=== PATIENT | male | born 1945 ===

== ENCOUNTER 2016-10-27 12:31 | Emergency (ER) | payer OTHER ==
[2016-10-27 12:36] VITALS: TEMP 98; O2SAT 96
[2016-10-27] MEDS ORDERED: Sodium Chloride 0.9% 1,000 ML IV STA (12:50)
--- NOTE | 2016-10-27 13:04 | ED PDOC ---
Lower Extremity Pain/Injury Time Seen by Provider: 10/27/16 12:36 Chief Complaint (Nursing): Lower Extremity Problem/Injury History Per: Patient (brought by EMS from a local pharmacy because of pain in both legs. Patient has had these pains chronically and more acutely over the past 4 days. He denies injury or fall/slipping. Patient denies nausea, vomiting , fever or chills. He has taken Naprosyn without relief. His last dose was early this morning, almost 12 hours ago.) History/Exam Limitations: no limitations Onset/Duration Of Symptoms: Gradual, Persistent Current Symptoms Are (Timing): Still Present Severity: Moderate Past Medical History Reviewed: Historical Data, Nursing Documentation, Vital Signs Vital Signs: Last Vital Signs Temp 98 F 10/27/16 12:45 Pulse 85 10/27/16 12:45 Resp 18 10/27/16 12:45 BP 107/75 10/27/16 12:45 Pulse Ox 96 10/27/16 12:45 - Medical History PMH: COPD, Hypercholesterolemia, Seizures Denies: Chronic Kidney Disease - Surgical History Surgical History: Appendectomy - Family History Family History: States: No Known Family Hx - Immunization History Hx Tetanus Toxoid Vaccination: No Hx Influenza Vaccination: No Hx Pneumococcal Vaccination: No - Home Medications Home Medications: Ambulatory Orders Medication Instructions Recorded Albuterol 0.083% [Albuterol 0.083% 3 ml IH Q4H PRN 07/10/16 Inhal Briana (2.5 mg/3 ml) UD] Albuterol HFA [Ventolin HFA 90 2 puff IH Q4H PRN 07/10/16 mcg/actuation (8 g)] Aspirin [Ecotrin] 81 mg PO DAILY 07/10/16 Atorvastatin [Lipitor] 20 mg PO DAILY 07/10/16 Brimonidine 0.2% [Alphagan 0.2% 1 drop EACHEYE BID 07/10/16 Opht] Fluticasone Nasal [Flonase] 2 spray NAHEED HS PRN 07/10/16 Gabapentin [Neurontin] 300 mg PO BID 07/10/16 Latanoprost [Xalatan] 1 drop EACHEYE HS 07/10/16 Melatonin [Melatin] 3 mg PO HS 07/10/16 Naproxen [Naprosyn] 500 mg PO BID PRN 07/10/16 Pantoprazole Sodium [Protonix] 40 mg PO DAILY 07/10/16 Phenytoin, Extended [Dilantin] 200 mg PO BID 07/10/16 Pilocarpine 1% Opht [Isopto 1 drop EACHEYE BID 07/10/16 Carpine 1% Opht Soln] Promethazine [Phenergan Syrup] 5 ml PO HS PRN 07/10/16 Tiotropium [Spiriva] 18 mcg IH DAILY 07/10/16 Vitamin B Complex [Super B-50 1 cap PO DAILY 07/10/16 Complex] guaiFENesin/Dextromethorphan 1 tab PO Q12H PRN 07/10/16 [Mucinex-DM 600-30 mg] Dicyclomine [Bentyl] 20 mg PO TID #30 tab 09/17/16 Acetaminophen [Tylenol 325mg tab] 650 mg PO Q6H PRN #50 tab 10/27/16 Naproxen [Naprosyn] 500 mg PO BID PRN #20 tablet 10/27/16 - Allergies Allergies/Adverse Reactions: Allergies Allergy/AdvReac Type Severity Reaction Status Date / Time No Known Allergies Allergy Verified 10/27/16 12:45 Review of Systems ROS Statement: Except As Marked, All Systems Reviewed And Found Negative Constitutional: Negative for: Fever Cardiovascular: Negative for: Chest Pain Respiratory: Negative for: Cough, Shortness of Breath Gastrointestinal: Negative for: Nausea, Vomiting, Abdominal Pain, Diarrhea Genitourinary Male: Negative for: Dysuria Physical Exam - Reviewed Nursing Documentation Reviewed: Yes Vital Signs Reviewed: Yes - Physical Exam Appears: Positive for: Well, Non-toxic, No Acute Distress Head Exam: Positive for: ATRAUMATIC, NORMAL INSPECTION, NORMOCEPHALIC Skin: Positive for: Normal Color, Warm, DRY Eye Exam: Positive for: EOMI, Normal appearance, PERRL ENT: Positive for: Normal ENT Inspection, Other (mucosa dry) Neck: Positive for: Normal, Painless ROM Cardiovascular/Chest: Positive for: Regular Rate, Rhythm Respiratory: Positive for: CNT, Normal Breath Sounds Gastrointestinal/Abdominal: Positive for: Normal Exam, Bowel Sounds, Soft Back: Positive for: Normal Inspection Extremity: Positive for: Other (thin). Negative for: Normal ROM (pain with range of motion) Neurologic/Psych: Positive for: Alert, Oriented - Laboratory Results Result Diagrams: 10/27/16 13:00 10/27/16 13:00 - ECG O2 Sat by Pulse Oximetry: 96 Disposition - Clinical Impression Clinical Impression: Chronic osteoarthritis - Patient ED Disposition Is Patient to be Admitted: No Doctor Will See Patient In The: Office Counseled Patient/Family Regarding: Diagnosis, Need For Followup, Rx Given - Disposition Disposition: Routine/Home Disposition Time: 14:21 Condition: IMPROVED Prescriptions: Acetaminophen [Tylenol 325mg tab] 650 mg PO Q6H PRN #50 tab PRN Reason: Pain, Mild (1-3) Naproxen [Naprosyn] 500 mg PO BID PRN #20 tablet PRN Reason: Pain, Moderate (4-7) Instructions: Degenerative Disc Disease (ED) Print Language: AUSTRIAN - POA Present On Arrival: None
[2016-10-27 13:21] LABS: BASO % 0.3 % (0.0-2.0); EOS # 0.3 K/uL (0.0-0.7); EOS % 3.3 % (0.0-4.0); HEMATOCRIT 41.2 % (35.0-51.0); LYMPH # 3.2 K/uL (1.0-4.3); LYMPH % 38.6 % (20.0-40.0); MEAN CELL VOLUME 93.4 fl (80.0-94.0); MEAN CORPUSCULAR HEMOGLOBIN 31.7 pg (27.0-31.0); MEAN CORPUSCULAR HGB CONC 33.9 g/dL (33.0-37.0); MEAN PLATELET VOLUME 8.6 fl (7.2-11.7); MONO # 0.9 K/uL (0.0-0.8); MONO % 11.3 % (0.0-10.0); NEUT # 3.8 K/uL (1.8-7.0); NEUT % 46.5 % (50.0-75.0); NRBC % 0.1 % (0.0-0.0); RED CELL DISTRIBUTION WIDTH 12.8 % (11.5-14.5); WHITE BLOOD COUNT 8.2 K/uL (4.8-10.8)
[2016-10-27 13:24] LABS: ALB/GLOB RATIO 1.1 (1.0-2.1); ALKALINE PHOSPHATASE 73 U/L (38-126); ALT/SGPT 32 U/L (21-72); AST/SGOT 39 U/L (17-59); BILIRUBIN,TOTAL 0.4 mg/dl (0.2-1.3); BLOOD UREA NITROGEN 20 mg/dl (9-20); CALCIUM 9.6 mg/dL (8.4-10.2); CARBON DIOXIDE 27 mmol/L (22-30); CHLORIDE 104 mmol/L (98-107); GFR AFRICAN-AMERICAN > 60; GLUCOSE,RANDOM 156 mg/dL (75-110); POTASSIUM 4.3 MMOL/L (3.6-5.0); SODIUM 139 mmol/l (132-148); TOTAL PROTEIN 7.4 G/DL (6.3-8.2)
[2016-10-27 19:33] VITALS: BP 110/70; PULSE 80; RESP 20
== END 2016-10-27 19:30 | disposition home or self-care (01) ==
LOC: H.ER 12:31 → MERGE 12:31 → H.ER 19:30
DX: M19.90 Unspecified osteoarthritis, unspecified site (principal)

== ENCOUNTER 2017-02-13 14:28 | Emergency (ER) | payer OTHER ==
[2017-02-13 14:31] VITALS: BP 106/64; PULSE 75; RESP 20; TEMP 97.4
[2017-02-13 14:32] VITALS: BMI 17.2
[2017-02-13 14:36] VITALS: O2SAT 98
--- NOTE | 2017-02-13 15:04 | ED PDOC ---
Lower Extremity Pain/Injury Time Seen by Provider: 02/13/17 14:54 Chief Complaint (Nursing): Lower Extremity Problem/Injury Chief Complaint (Provider): chronic leg pain History Per: Patient Onset/Duration Of Symptoms: Persistent Current Symptoms Are (Timing): Still Present Additional Complaint(s): The patient is a 71 y/o male, past medical history of chronic bilateral lower extremity pain, presents to the ED for evaluation of exacerbation of his chronic pain. He reports taking percocet before arrival with minimal relief. Patient denies any bladder or bowel dysfunction. He offers no additional medical complaints. PCP: None provided Past Medical History Reviewed: Historical Data, Nursing Documentation, Vital Signs Vital Signs: Last Vital Signs Temp 97.4 F L 02/13/17 14:30 Pulse 75 02/13/17 14:30 Resp 20 02/13/17 14:30 BP 106/64 02/13/17 14:30 Pulse Ox 98 02/13/17 14:32 - Medical History PMH: Arthritis, CHF, COPD, Diabetes, HTN, Hypercholesterolemia, Seizures - Surgical History Surgical History: Appendectomy - Family History Family History: States: No Known Family Hx - Living Arrangements Living Arrangements: With Family - Social History Current smoker - smoking cessation education provided: No Alcohol: None Drugs: Denies - Home Medications Home Medications: Ambulatory Orders Medication Instructions Recorded Tiotropium [Spiriva] 18 mcg IH DAILY 10/29/14 Vitamin B Complex [Super B100] 1 cap PO DAILY 10/29/14 Albuterol HFA [Ventolin HFA 90 2 puff INH Q4 PRN #0 inhaler 04/29/15 mcg/actuation (8 g)] Aspirin [Ecotrin] 81 mg PO DAILY #0 tabec 04/29/15 Atorvastatin [Lipitor] 20 mg PO DAILY@2100 #0 tab 04/29/15 Gabapentin [Neurontin] 300 mg PO TID #0 cap 04/29/15 Naproxen 500 mg PO BID PRN #0 tab 04/29/15 Pantoprazole [Protonix EC Tab] 40 mg PO DAILY #0 ect 04/29/15 Phenytoin, Extended [Dilantin] 100 mg PO TID #0 cer 04/29/15 Albuterol 0.083% [Albuterol 0.083% 3 ml IH Q4H PRN 07/10/16 Inhal Briana (2.5 mg/3 ml) UD] Albuterol HFA [Ventolin HFA 90 2 puff IH Q4H PRN 07/10/16 mcg/actuation (8 g)] Aspirin [Ecotrin] 81 mg PO DAILY 07/10/16 Atorvastatin [Lipitor] 20 mg PO DAILY 07/10/16 Brimonidine 0.2% [Alphagan 0.2% 1 drop EACHEYE BID 07/10/16 Opht] Fluticasone Nasal [Flonase] 2 spray NAHEED HS PRN 07/10/16 Gabapentin [Neurontin] 300 mg PO BID 07/10/16 Latanoprost [Xalatan] 1 drop EACHEYE HS 07/10/16 Melatonin [Melatin] 3 mg PO HS 07/10/16 Naproxen [Naprosyn] 500 mg PO BID PRN 07/10/16 Pantoprazole Sodium [Protonix] 40 mg PO DAILY 07/10/16 Phenytoin, Extended [Dilantin] 200 mg PO BID 07/10/16 Pilocarpine 1% Opht [Isopto 1 drop EACHEYE BID 07/10/16 Carpine 1% Opht Soln] Promethazine [Phenergan Syrup] 5 ml PO HS PRN 07/10/16 Tiotropium [Spiriva] 18 mcg IH DAILY 07/10/16 Vitamin B Complex [Super B-50 1 cap PO DAILY 07/10/16 Complex] guaiFENesin/Dextromethorphan 1 tab PO Q12H PRN 07/10/16 [Mucinex-DM 600-30 mg] Dicyclomine [Bentyl] 20 mg PO TID #30 tab 09/17/16 Acetaminophen [Tylenol 325mg tab] 650 mg PO Q6H PRN #50 tab 10/27/16 Naproxen [Naprosyn] 500 mg PO BID PRN #20 tablet 10/27/16 Temazepam [Restoril] 15 mg PO HS #15 cap 10/27/16 oxyCODONE/Acetaminophen [Percocet 1 ea PO Q6 PRN #5 tab 10/31/16 5/325 mg Tab] - Allergies Allergies/Adverse Reactions: Allergies Allergy/AdvReac Type Severity Reaction Status Date / Time No Known Allergies Allergy Verified 12/21/16 18:14 Wells Criteria for PE - Wells Criteria for Pulmonary Embolism Clinical Signs and Symptoms of DVT: No P.E is #1 Diagnosis, or Equally Likely: No Heart Rate >100: No Immobilization at least 3 days;Surgery previous 4 weeks: No Previous, objectively diagnosed PE or DVT: No Hemoptysis: No Malignancy w/treatment within 6 months, or palliative: No Total Score: 0 Review of Systems ROS Statement: Except As Marked, All Systems Reviewed And Found Negative Gastrointestinal: Negative for: Diarrhea, Constipation Genitourinary Male: Negative for: Dysuria, Incontinence, Hematuria Musculoskeletal: Positive for: Leg Pain (bilateral, chronic) Physical Exam - Reviewed Nursing Documentation Reviewed: Yes Vital Signs Reviewed: Yes - Physical Exam Appears: Positive for: Well, Non-toxic, No Acute Distress Skin: Negative for: Rash Eye Exam: Positive for: Normal appearance Cardiovascular/Chest: Positive for: Regular Rate, Rhythm Respiratory: Positive for: Normal Breath Sounds. Negative for: Respiratory Distress Gastrointestinal/Abdominal: Positive for: Soft. Negative for: Tenderness, Distended, Guarding Extremity: Positive for: Normal ROM (bilateral lower extremities). Negative for : Calf Tenderness, Deformity, Swelling Neurologic/Psych: Positive for: Alert, Oriented, Gait (steady with cane which patient uses at baseline) - ECG O2 Sat by Pulse Oximetry: 98 (RA) Pulse Ox Interpretation: Normal Medical Decision Making Medical Decision Making: Time: 1500 Impression: Exacerbation of chronic pain Plan: -- Toradol 30 mg IM Patient has bottles of nabumetone, Naprosyn and tramadol in his bag. He was advised to continue with these medications for pain. Patient was instructed to follow up with his primary doctor or with clinic. Scribe Attestation: Documented by Carol Johnson acting as a scribe for GHADA Blanco Provider Attestation: All medical record entries made by the Scribe were at my direction and personally dictated by me. I have reviewed the chart and agree that the record accurately reflects my personal performance of the history, physical exam, medical decision making, and the department course for this patient. I have also personally directed, reviewed, and agree with the discharge instructions and disposition. Disposition - Clinical Impression Clinical Impression: Leg pain, Chronic pain - Patient ED Disposition Is Patient to be Admitted: No Counseled Patient/Family Regarding: Diagnosis, Need For Followup - Disposition Referrals: [facility] [Outside] Disposition: Routine/Home Disposition Time: 15:14 Condition: STABLE Additional Instructions: FOLLOW UP WITH PRIMARY CARE DOCTOR AMADA. Instructions: Chronic Pain (ED), Leg Pain (ED) Forms: [facility] (Tristanian) Print Language: HUNGARIAN
== END 2017-02-13 16:00 | disposition home or self-care (01) ==
LOC: H.ER 14:28
DX: M79.603 Pain in arm, unspecified (principal)

== ENCOUNTER 2017-03-25 16:28 | Inpatient (IN) | payer OTHER ==
[2017-03-25 16:28] VITALS: BMI 17.2
[2017-03-25] MEDS ORDERED: Sodium Chloride 0.9% 1,000 ML IV STA (16:57)
--- NOTE | 2017-03-25 18:04 | RAD ---
HISTORY: syncope COMPARISON: No prior. FINDINGS: LUNGS: The lungs are well inflated. There is consolidation in the right upper lobe. There is a stable calcification in the left lower lobe. PLEURA: No significant pleural effusion identified, no pneumothorax apparent. CARDIOVASCULAR: Normal. OSSEOUS STRUCTURES: No significant abnormalities. VISUALIZED UPPER ABDOMEN: Normal. OTHER FINDINGS: None. IMPRESSION: The right upper lobe pneumonia follow-up after medical management is recommended to ensure complete resolution.
[2017-03-25 18:05] LABS: PARTIAL THROMBOPLASTIN TIME 26.9 Seconds (25.6-37.1)
[2017-03-25 18:06] LABS: BASO # 0.1 K/uL (0.0-0.2); EOS # 0.6 K/uL (0.0-0.7); EOS % 6.7 % (0.0-4.0); HEMATOCRIT 43.5 % (35.0-51.0); LYMPH # 2.9 K/uL (1.0-4.3); MEAN CELL VOLUME 94.2 fl (80.0-94.0); MEAN CORPUSCULAR HGB CONC 32.9 g/dL (33.0-37.0); MEAN PLATELET VOLUME 9.2 fl (7.2-11.7); MONO # 1.6 K/uL (0.0-0.8); MONO % 17.3 % (0.0-10.0); NEUT # 4.1 K/uL (1.8-7.0); NRBC % 0.1 % (0.0-0.0); RED CELL DISTRIBUTION WIDTH 13.5 % (11.5-14.5); WHITE BLOOD COUNT 9.3 K/uL (4.8-10.8)
[2017-03-25 18:11] LABS: ALB/GLOB RATIO 1.3 (1.0-2.1); ALCOHOL SERUM < 10 mg/dl (0-10); ALKALINE PHOSPHATASE 86 U/L (38-126); ALT/SGPT 37 U/L (21-72); AST/SGOT 35 U/L (17-59); BILIRUBIN,TOTAL 0.4 mg/dl (0.2-1.3); BLOOD UREA NITROGEN 18 mg/dl (9-20); CALCIUM 9.9 mg/dL (8.4-10.2); CARBON DIOXIDE 29 mmol/L (22-30); CHLORIDE 103 mmol/L (98-107); GFR AFRICAN-AMERICAN > 60; GLUCOSE,RANDOM 98 mg/dL (75-110); PHOSPHOROUS 3.4 mg/dl (2.5-4.5); POTASSIUM 4.4 MMOL/L (3.6-5.0); SODIUM 147 mmol/l (132-148); TOTAL PROTEIN 8.1 G/DL (6.3-8.2)
--- NOTE | 2017-03-25 18:16 | ED PDOC ---
Syncope/Near Syncope/Dizziness Time Seen by Provider: 03/25/17 16:41 Chief Complaint (Nursing): Dizziness/Lightheaded Chief Complaint (Provider): Syncope History Per: Patient History/Exam Limitations: clinical condition Onset/Duration Of Symptoms: Hrs Additional History Per: EMS Additional Complaint(s): The patient is a 71yo male, brought to the ED for evaluation of syncopal episodes. HPI is unreliable as patient is a poor historian. Patient reports he fell down and passed out multiple times last night as well as today. Per EMS report, patient was outside in the heat all day and was found severely lethargic in a friend's car. The patient contradicts this report and states he was in the friends' car, waiting for the ambulance. He reports chronic leg pain and generalized weakness. Patient denies any headache, shortness of breath, chest pain, fever, chills. No other medical complaints. Past Medical History Reviewed: Historical Data, Nursing Documentation, Vital Signs Vital Signs: Last Vital Signs Temp 99 F 03/25/17 16:31 Pulse 87 03/25/17 16:31 Resp 18 03/25/17 16:31 BP 113/71 03/25/17 16:31 Pulse Ox 93 L 03/25/17 16:31 - Medical History PMH: Arthritis, CHF, COPD, Diabetes, HTN, Hypercholesterolemia, Pneumonia, Seizures Denies: HIV, Hypothyroidism, Chronic Kidney Disease, Rheumatoid Arthritis - Surgical History Surgical History: Appendectomy - Family History Family History: States: No Known Family Hx, Unknown Family Hx - Social History Current smoker - smoking cessation education provided: No Alcohol: None Drugs: Denies - Immunization History Hx Tetanus Toxoid Vaccination: No Hx Influenza Vaccination: No Hx Pneumococcal Vaccination: No - Home Medications Home Medications: Ambulatory Orders Medication Instructions Recorded Tiotropium [Spiriva] 18 mcg IH DAILY 10/29/14 Vitamin B Complex [Super B100] 1 cap PO DAILY 10/29/14 Albuterol HFA [Ventolin HFA 90 2 puff INH Q4 PRN #0 inhaler 04/29/15 mcg/actuation (8 g)] Aspirin [Ecotrin] 81 mg PO DAILY #0 tabec 04/29/15 Atorvastatin [Lipitor] 20 mg PO DAILY@2100 #0 tab 04/29/15 Gabapentin [Neurontin] 300 mg PO TID #0 cap 04/29/15 Naproxen 500 mg PO BID PRN #0 tab 04/29/15 Pantoprazole [Protonix EC Tab] 40 mg PO DAILY #0 ect 04/29/15 Phenytoin, Extended [Dilantin] 100 mg PO TID #0 cer 04/29/15 Albuterol 0.083% [Albuterol 0.083% 3 ml IH Q4H PRN 07/10/16 Inhal Briana (2.5 mg/3 ml) UD] Albuterol HFA [Ventolin HFA 90 2 puff IH Q4H PRN 07/10/16 mcg/actuation (8 g)] Aspirin [Ecotrin] 81 mg PO DAILY 07/10/16 Atorvastatin [Lipitor] 20 mg PO DAILY 07/10/16 Brimonidine 0.2% [Alphagan 0.2% 1 drop EACHEYE BID 07/10/16 Opht] Fluticasone Nasal [Flonase] 2 spray NAHEED HS PRN 07/10/16 Gabapentin [Neurontin] 300 mg PO BID 07/10/16 Latanoprost [Xalatan] 1 drop EACHEYE HS 07/10/16 Melatonin [Melatin] 3 mg PO HS 07/10/16 Naproxen [Naprosyn] 500 mg PO BID PRN 07/10/16 Pantoprazole Sodium [Protonix] 40 mg PO DAILY 07/10/16 Phenytoin, Extended [Dilantin] 200 mg PO BID 07/10/16 Pilocarpine 1% Opht [Isopto 1 drop EACHEYE BID 07/10/16 Carpine 1% Opht Soln] Promethazine [Phenergan Syrup] 5 ml PO HS PRN 07/10/16 Tiotropium [Spiriva] 18 mcg IH DAILY 07/10/16 Vitamin B Complex [Super B-50 1 cap PO DAILY 07/10/16 Complex] guaiFENesin/Dextromethorphan 1 tab PO Q12H PRN 07/10/16 [Mucinex-DM 600-30 mg] Dicyclomine [Bentyl] 20 mg PO TID #30 tab 09/17/16 Acetaminophen [Tylenol 325mg tab] 650 mg PO Q6H PRN #50 tab 10/27/16 Naproxen [Naprosyn] 500 mg PO BID PRN #20 tablet 10/27/16 Temazepam [Restoril] 15 mg PO HS #15 cap 10/27/16 oxyCODONE/Acetaminophen [Percocet 1 ea PO Q6 PRN #5 tab 10/31/16 5/325 mg Tab] Dorzolamide HCl/Timolol Maleat 1 drop BOTHEYES BID 03/25/17 [Dorzolamide-Timolol Eye Drops] Naproxen [Naprosyn] 500 mg PO BID PRN 03/25/17 Pilocarpine 1% Opht [Isopto 1 drop BOTHEYES TID 03/25/17 Carpine 1% Opht Soln] Sodium Chloride [Saline Mist] 1 spray INH Q4 PRN 03/25/17 Temazepam [Restoril] 15 mg PO HS PRN 03/25/17 Tramadol HCl [Ultram] 50 mg PO DAILY PRN 03/25/17 Tramadol HCl/Acetaminophen 1 tab PO Q12 PRN 03/25/17 [Ultracet Tablet] - Allergies Allergies/Adverse Reactions: Allergies Allergy/AdvReac Type Severity Reaction Status Date / Time No Known Allergies Allergy Verified 12/21/16 18:14 Review of Systems ROS Statement: Except As Marked, All Systems Reviewed And Found Negative Constitutional: Positive for: Weakness, Malaise. Negative for: Fever, Chills Cardiovascular: Negative for: Chest Pain Respiratory: Negative for: Shortness of Breath Musculoskeletal: Positive for: Leg Pain (chronic) Neurological: Negative for: Headache Physical Exam - Reviewed Nursing Documentation Reviewed: Yes Vital Signs Reviewed: Yes - Physical Exam Appears: Positive for: No Acute Distress (but tired appearing) Head Exam: Positive for: ATRAUMATIC, NORMOCEPHALIC Eye Exam: Positive for: Other (bilateral haziness of orbits consistent with chronic blindness) ENT: Positive for: Other (tacky mucus membranes). Negative for: Tonsillar Exudate Neck: Positive for: Painless ROM, Supple Respiratory: Positive for: Normal Breath Sounds. Negative for: Crackles, Respiratory Distress Gastrointestinal/Abdominal: Positive for: Soft. Negative for: Tenderness Back: Positive for: Normal Inspection. Negative for: Vertebral Tenderness Extremity: Positive for: Normal ROM. Negative for: Deformity Lymphatic: Negative for: Adenopathy Neurologic/Psych: Positive for: Alert, Oriented, Mood/Affect (tangential thought process, somewhat forgetful). Negative for: Motor/Sensory Deficits - Laboratory Results Result Diagrams: 03/27/17 06:45 03/27/17 06:45 - ECG ECG: Positive for: Interpreted By Me ECG Rhythm: Positive for: Normal QRS, Normal ST Segment, Sinus Rhythm O2 Sat by Pulse Oximetry: 93 Pulse Ox Interpretation: Normal (low normal) - Radiology X-Ray: Read By Radiologist X-Ray Interpretation: Infiltrates Medical Decision Making Medical Decision Making: Impression: Syncope Differential: Dehydration, heat exhaustion, electrolyte abnormalities, cardiovascular event Plan: -- Labs -- IV Fluids -- Chest XR Scribe Attestation: Documented by Carol Johnson, acting as a scribe for Cristy Olguin MD. Provider Scribe Attestation: All medical record entries made by the Scribe were at my direction and personally dictated by me. I have reviewed the chart and agree that the record accurately reflects my personal performance of the history, physical exam, medical decision making, and the department course for this patient. I have also personally directed, reviewed, and agree with the discharge instructions and disposition. Disposition - Clinical Impression Clinical Impression: Pneumonia, Syncope Counseled Patient/Family Regarding: Studies Performed, Diagnosis - Disposition Disposition Time: 20:00 Condition: GUARDED - Pt Status Changed To: Hospital Disposition Of: Observation - POA Present On Arrival: Falls Or Trauma
--- NOTE | 2017-03-25 18:25 | CT ---
PROCEDURE: CT HEAD WITHOUT CONTRAST. HISTORY: Syncope COMPARISON: None available. TECHNIQUE: Axial computed tomography images were obtained through the head/brain without intravenous contrast. Radiation dose: Total exam DLP = 826.04 mGy-cm. This CT exam was performed using one or more of the following dose reduction techniques: Automated exposure control, adjustment of the mA and/or kV according to patient size, and/or use of iterative reconstruction technique. FINDINGS: HEMORRHAGE: No intracranial hemorrhage. BRAIN: There are mild chronic microangiopathic changes. There is no mass, mass effect or abnormal extra-axial fluid collection. VENTRICLES: There is mild age-related global parenchymal volume loss and proportionate enlargement of the ventricles and cortical sulci. CALVARIUM: There is no calvarial fracture or extracranial soft tissue swelling. PARANASAL SINUSES: Predominantly clear. MASTOID AIR CELLS: Predominantly clear. OTHER FINDINGS: There is an old fracture deformity in the left lamina papyracea. There is a right scleral band and mild right proptosis. IMPRESSION: No acute intracranial abnormality.
[2017-03-25] MEDS ORDERED: levoFLOXacin 750 mg in D5W 150 ML BAG IVPB STA (20:14)
[2017-03-25 21:12] LABS: VENOUS BLOOD GAS BASE EXCESS 2.4 mmol/L (0.0-2.0); VENOUS BLOOD GAS PCO2 66 mmHg (40-60); VENOUS BLOOD PH 7.28 (7.32-7.43)
[2017-03-25] MEDS ORDERED: levoFLOXacin 750 mg in D5W 750 MG/150 ML BAG IVPB ONE (21:15)
[2017-03-25] MEDS ORDERED: Albuterol 0.083% Inhal Sol (2.5 mg/3 mL) UD INH PRN (21:24)
[2017-03-25] MEDS ORDERED: Sodium Chloride 3% for Inhalation 4 ML VIAL.NEB IH PRN (21:43)
[2017-03-25] MEDS: Latanoprost 0.005% Opht SOUTION OU SCH (23:05)
[2017-03-26 05:43] LABS: BASO # 0.1 K/uL (0.0-0.2); BASO % 1.3 % (0.0-2.0); EOS # 0.6 K/uL (0.0-0.7); EOS % 6.1 % (0.0-4.0); HEMATOCRIT 40.7 % (35.0-51.0); LYMPH # 2.3 K/uL (1.0-4.3); LYMPH % 23.2 % (20.0-40.0); MEAN CELL VOLUME 93.6 fl (80.0-94.0); MEAN CORPUSCULAR HEMOGLOBIN 31.4 pg (27.0-31.0); MEAN CORPUSCULAR HGB CONC 33.5 g/dL (33.0-37.0); MONO # 1.4 K/uL (0.0-0.8); MONO % 14.2 % (0.0-10.0); NEUT # 5.4 K/uL (1.8-7.0); NEUT % 55.2 % (50.0-75.0); NRBC % 0.1 % (0.0-0.0); RED CELL DISTRIBUTION WIDTH 13.3 % (11.5-14.5); WHITE BLOOD COUNT 9.8 K/uL (4.8-10.8)
[2017-03-26 05:58] LABS: ALB/GLOB RATIO 1.3 (1.0-2.1); ALKALINE PHOSPHATASE 86 U/L (38-126); ALT/SGPT 32 U/L (21-72); AST/SGOT 29 U/L (17-59); BILIRUBIN,TOTAL 0.7 mg/dl (0.2-1.3); BLOOD UREA NITROGEN 12 mg/dl (9-20); CALCIUM 9.6 mg/dL (8.4-10.2); CARBON DIOXIDE 25 mmol/L (22-30); CHLORIDE 105 mmol/L (98-107); GFR AFRICAN-AMERICAN > 60; GLUCOSE,RANDOM 108 mg/dL (75-110); SODIUM 145 mmol/l (132-148); TOTAL PROTEIN 7.2 G/DL (6.3-8.2)
[2017-03-26 07:55] LABS: CHOLESTEROL 168 mg/dL (0-199)
--- NOTE | 2017-03-26 08:10 | CP.PCM.HP ---
History of Present Illness - History of Present Illness History of Present Illness: A 71 year old male came for episodes of syncope. He is a poor historian. As per the ER chart, he was out doors, he was heat exhaused and felt lethargic at his friend' car. He is taking dilantin. He had multiple episodes of syncope. He denies smoking. Present on Admission - Present on Admission Any Indicators Present on Admission: No History of DVT/PE: No History of Uncontrolled Diabetes: No Urinary Catheter: No Decubitus Ulcer Present: No Review of Systems - Constitutional Constitutional: absent: Excessive Sweating - EENT Eyes: absent: Blurred Vision - Cardiovascular Cardiovascular: absent: Chest Pain - Respiratory Respiratory: absent: Cough - Gastrointestinal Gastrointestinal: absent: Bloating Past Patient History - Past Medical History & Family History Past Medical History?: Yes - Past Social History Alcohol: None Drugs: Denies - CARDIAC Hx Congestive Heart Failure: Yes Hx Hypercholesterolemia: Yes Hx Hypertension: Yes - PULMONARY Hx Chronic Obstructive Pulmonary Disease (COPD): Yes Hx Pneumonia: Yes - NEUROLOGICAL Hx Seizures: Yes - HEENT Hx Blind: Yes (b/l) - RENAL Hx Chronic Kidney Disease: No - ENDOCRINE/METABOLIC Hx Hypothyroidism: No - HEMATOLOGICAL/ONCOLOGICAL Hx Human Immunodeficiency Virus (HIV): No - INTEGUMENTARY Hx Dermatological Problems: No - MUSCULOSKELETAL/RHEUMATOLOGICAL Hx Arthritis: Yes Hx Rheumatoid Arthritis: No - GASTROINTESTINAL Hx Gastrointestinal Disorders: Yes - GENITOURINARY/GYNECOLOGICAL Hx Genitourinary Disorders: No - PSYCHIATRIC Hx Psychophysiologic Disorder: No Hx Substance Use: No - SURGICAL HISTORY Hx Appendectomy: Yes - ANESTHESIA Hx Anesthesia: Yes Hx Anesthesia Reactions: No Hx Malignant Hyperthermia: No Meds Allergies/Adverse Reactions: Allergies Allergy/AdvReac Type Severity Reaction Status Date / Time No Known Allergies Allergy Verified 12/21/16 18:14 Physical Exam - Constitutional Appears: No Acute Distress - ENT Exam ENT Exam: Mucous Membranes Moist - Respiratory Exam Respiratory Exam: Decreased Breath Sounds, Clear to Auscultation Bilateral ( decreased air e) - Cardiovascular Exam Cardiovascular Exam: REGULAR RHYTHM. absent: Systolic Murmur - GI/Abdominal Exam GI & Abdominal Exam: Normal Bowel Sounds, Soft Results - Vital Signs Recent Vital Signs: Last Vital Signs Temp 98.1 F 03/26/17 02:42 Pulse 98 H 03/26/17 05:42 Resp 20 03/26/17 05:42 BP 136/77 03/26/17 05:42 Pulse Ox 96 03/26/17 05:42 - Labs Result Diagrams: 03/27/17 06:45 03/27/17 06:45 Labs: Laboratory Results - last 24 hr 03/25/17 03/25/17 03/25/17 16:52 17:11 17:11 WBC 9.3 RBC 4.62 Hgb 14.3 Hct 43.5 MCV 94.2 H MCH 31.0 MCHC 32.9 L RDW 13.5 Plt Count 158 MPV 9.2 Neut % (Auto) 44.0 L Lymph % (Auto) 31.0 Williamson % (Auto) 17.3 H Eos % (Auto) 6.7 H Baso % (Auto) 1.0 Neut # 4.1 Lymph # 2.9 Williamson # 1.6 H Eos # 0.6 Baso # 0.1 PT 12.0 INR 1.2 APTT 26.9 pO2 VBG pH VBG pCO2 VBG HCO3 VBG Total CO2 VBG O2 Sat (Calc) VBG Base Excess VBG Potassium Glucose Lactate FiO2 Crit Value Called To Crit Value Called By Crit Value Read Back Blood Gas Notified Time Sodium Potassium Chloride Carbon Dioxide Anion Gap BUN Creatinine Est GFR ( Amer) Est GFR (Non-Af Amer) POC Glucose (mg/dL) 132 H Random Glucose Calcium Phosphorus Magnesium Total Bilirubin AST ALT Alkaline Phosphatase Total Creatine Kinase Troponin I Total Protein Albumin Globulin Albumin/Globulin Ratio Venous Blood Potassium Phenytoin Alcohol, Quantitative Blood Type Antibody Screen BBK History Checked 03/25/17 03/25/17 03/25/17 17:36 18:00 21:00 WBC RBC Hgb Hct MCV MCH MCHC RDW Plt Count MPV Neut % (Auto) Lymph % (Auto) Williamson % (Auto) Eos % (Auto) Baso % (Auto) Neut # Lymph # Williamson # Eos # Baso # PT INR APTT pO2 19 L VBG pH 7.28 L VBG pCO2 66 H* VBG HCO3 24.8 VBG Total CO2 33.0 H VBG O2 Sat (Calc) 33.5 L VBG Base Excess 2.4 H VBG Potassium 4.0 Glucose 81 Lactate 1.3 FiO2 21.0 Crit Value Called To Ryan kilpatrick Crit Value Called By 23 Crit Value Read Back Y Blood Gas Notified Time 210 Sodium 147 140.0 Potassium 4.4 Chloride 103 106.0 Carbon Dioxide 29 Anion Gap 19 BUN 18 Creatinine 0.8 Est GFR ( Amer) > 60 Est GFR (Non-Af Amer) > 60 POC Glucose (mg/dL) Random Glucose 98 Calcium 9.9 Phosphorus 3.4 Magnesium 2.0 Total Bilirubin 0.4 AST 35 ALT 37 Alkaline Phosphatase 86 Total Creatine Kinase 71 Troponin I < 0.0120 Total Protein 8.1 Albumin 4.6 Globulin 3.6 Albumin/Globulin Ratio 1.3 Venous Blood Potassium 4.0 Phenytoin Alcohol, Quantitative < 10 Blood Type O POSITIVE Antibody Screen Negative BBK History Checked No verified bt 03/26/17 03/26/17 03/26/17 05:25 05:25 05:25 WBC 9.8 RBC 4.35 L Hgb 13.7 Hct 40.7 MCV 93.6 MCH 31.4 H MCHC 33.5 RDW 13.3 Plt Count 148 MPV 9.0 Neut % (Auto) 55.2 Lymph % (Auto) 23.2 Williamson % (Auto) 14.2 H Eos % (Auto) 6.1 H Baso % (Auto) 1.3 Neut # 5.4 Lymph # 2.3 Williamson # 1.4 H Eos # 0.6 Baso # 0.1 PT INR APTT pO2 VBG pH VBG pCO2 VBG HCO3 VBG Total CO2 VBG O2 Sat (Calc) VBG Base Excess VBG Potassium Glucose Lactate FiO2 Crit Value Called To Crit Value Called By Crit Value Read Back Blood Gas Notified Time Sodium 145 Potassium 4.0 Chloride 105 Carbon Dioxide 25 Anion Gap 19 BUN 12 Creatinine 0.6 L Est GFR ( Amer) > 60 Est GFR (Non-Af Amer) > 60 POC Glucose (mg/dL) Random Glucose 108 Calcium 9.6 Phosphorus Magnesium Total Bilirubin 0.7 AST 29 ALT 32 Alkaline Phosphatase 86 Total Creatine Kinase Troponin I < 0.0120 Total Protein 7.2 Albumin 4.0 Globulin 3.2 Albumin/Globulin Ratio 1.3 Venous Blood Potassium Phenytoin Alcohol, Quantitative Blood Type Antibody Screen BBK History Checked 03/26/17 05:30 WBC RBC Hgb Hct MCV MCH MCHC RDW Plt Count MPV Neut % (Auto) Lymph % (Auto) Williamson % (Auto) Eos % (Auto) Baso % (Auto) Neut # Lymph # Williamson # Eos # Baso # PT INR APTT pO2 VBG pH VBG pCO2 VBG HCO3 VBG Total CO2 VBG O2 Sat (Calc) VBG Base Excess VBG Potassium Glucose Lactate FiO2 Crit Value Called To Crit Value Called By Crit Value Read Back Blood Gas Notified Time Sodium Potassium Chloride Carbon Dioxide Anion Gap BUN Creatinine Est GFR ( Amer) Est GFR (Non-Af Amer) POC Glucose (mg/dL) Random Glucose Calcium Phosphorus Magnesium Total Bilirubin AST ALT Alkaline Phosphatase Total Creatine Kinase Troponin I Total Protein Albumin Globulin Albumin/Globulin Ratio Venous Blood Potassium Phenytoin 33.9 H Alcohol, Quantitative Blood Type Antibody Screen BBK History Checked Assessment & Plan - Assessment and Plan (Free Text) Assessment: A 71 year old male came with episodes of syncope heat exhaustion chest X-ray showed right upper pneumonia Plan: iv antibiotics continue current medicines telemetry observations labs - Date & Time Date: 03/26/17 Time: 08:12 Decision To Admit - Pt Status Changed To: Hospital Disposition Of: Inpatient - Admit Certification Admit to Inpatient:: After my assessment, the patient will require hospitalization for at least two midnights. This is because of the severity of symptoms shown, intensity of services needed, and/or the medical risk in this patient being treated as an outpatient. - . Bed Request Type: Telemetry Admitting Physician: Valentine Lamas
[2017-03-26] MEDS ORDERED: Pilocarpine 1% Opht Soln OU SCH (09:00)
--- NOTE | 2017-03-26 11:34 | CP.PCM.CON ---
History of Present Illness - History of Present Illness History of Present Illness: 71 y/o male admitted with Syncope Pt was out in the heat - 90 degrees- yesterday not drinking fluids and became weak no true LOC PMH: PMH: Arthritis, CHF, COPD, Diabetes, HTN, Hypercholesterolemia, Pneumonia, Seizure disorder EKG: normal Troponin: neg x 3 Past Patient History - Past Medical History & Family History Past Medical History?: Yes - Past Social History Alcohol: None Drugs: Denies - CARDIAC Hx Congestive Heart Failure: Yes Hx Hypercholesterolemia: Yes Hx Hypertension: Yes - PULMONARY Hx Chronic Obstructive Pulmonary Disease (COPD): Yes Hx Pneumonia: Yes - NEUROLOGICAL Hx Seizures: Yes - HEENT Hx Blind: Yes (b/l) - RENAL Hx Chronic Kidney Disease: No - ENDOCRINE/METABOLIC Hx Hypothyroidism: No - HEMATOLOGICAL/ONCOLOGICAL Hx Human Immunodeficiency Virus (HIV): No - INTEGUMENTARY Hx Dermatological Problems: No - MUSCULOSKELETAL/RHEUMATOLOGICAL Hx Arthritis: Yes Hx Rheumatoid Arthritis: No - GASTROINTESTINAL Hx Gastrointestinal Disorders: Yes - GENITOURINARY/GYNECOLOGICAL Hx Genitourinary Disorders: No - PSYCHIATRIC Hx Psychophysiologic Disorder: No Hx Substance Use: No - SURGICAL HISTORY Hx Appendectomy: Yes - ANESTHESIA Hx Anesthesia: Yes Hx Anesthesia Reactions: No Hx Malignant Hyperthermia: No Meds Allergies/Adverse Reactions: Allergies Allergy/AdvReac Type Severity Reaction Status Date / Time No Known Allergies Allergy Verified 12/21/16 18:14 - Medications Medications: Current Medications Acetaminophen (Tylenol 325mg Tab) 650 mg PO Q6 PRN PRN Reason: pain or fever Albuterol Sulfate (Albuterol 0.083% Inhal Briana (2.5 Mg/3 Ml) Ud) 2.5 mg INH RQ6 PRN PRN Reason: Shortness of Breath Heparin Sodium (Porcine) (Heparin) 5,000 units SC Q12 HENRY PRN Reason: Protocol Levofloxacin/Dextrose (Levaquin 500mg) 500 mg in 100 mls @ 100 mls/hr IVPB DAILY [facility] Ceftriaxone Sodium 1 gm/ (Sodium Chloride) 100 mls @ 100 mls/hr IVPB DAILY [facility] Latanoprost (Xalatan Opht) 1 drop OU HS HENRY Last Admin: 03/25/17 23:05 Dose: 1 drop Pantoprazole Sodium (Protonix Ec Tab) 40 mg PO DAILY [facility]ENRY Phenytoin Sodium (Dilantin) 200 mg PO BID HENRY Pilocarpine HCl (Isopto Carpine 1% Opht Soln) 1 drop OU TID HENRY Tiotropium [place] (Spiriva) 18 mcg INH DAILY [facility]ENRY Results - Vital Signs Recent Vital Signs: Last Vital Signs Temp 98.1 F 03/26/17 02:42 Pulse 98 H 03/26/17 05:42 Resp 20 03/26/17 05:42 BP 136/77 03/26/17 05:42 Pulse Ox 96 03/26/17 05:42 - Labs Result Diagrams: 03/26/17 05:25 03/26/17 05:25 Labs: Laboratory Results - last 24 hr 03/25/17 03/25/17 03/25/17 16:52 17:11 17:11 WBC 9.3 RBC 4.62 Hgb 14.3 Hct 43.5 MCV 94.2 H MCH 31.0 MCHC 32.9 L RDW 13.5 Plt Count 158 MPV 9.2 Neut % (Auto) 44.0 L Lymph % (Auto) 31.0 Pender % (Auto) 17.3 H Eos % (Auto) 6.7 H Baso % (Auto) 1.0 Neut # 4.1 Lymph # 2.9 Pender # 1.6 H Eos # 0.6 Baso # 0.1 PT 12.0 INR 1.2 APTT 26.9 pO2 VBG pH VBG pCO2 VBG HCO3 VBG Total CO2 VBG O2 Sat (Calc) VBG Base Excess VBG Potassium Glucose Lactate FiO2 Crit Value Called To Crit Value Called By Crit Value Read Back Blood Gas Notified Time Sodium Potassium Chloride Carbon Dioxide Anion Gap BUN Creatinine Est GFR ( Amer) Est GFR (Non-Af Amer) POC Glucose (mg/dL) 132 H Random Glucose Calcium Phosphorus Magnesium Total Bilirubin AST ALT Alkaline Phosphatase Total Creatine Kinase Troponin I Total Protein Albumin Globulin Albumin/Globulin Ratio Triglycerides Cholesterol LDL Cholesterol Direct HDL Cholesterol Venous Blood Potassium Phenytoin Alcohol, Quantitative Blood Type Antibody Screen BBK History Checked 03/25/17 03/25/17 03/25/17 17:36 18:00 21:00 WBC RBC Hgb Hct MCV MCH MCHC RDW Plt Count MPV Neut % (Auto) Lymph % (Auto) Pender % (Auto) Eos % (Auto) Baso % (Auto) Neut # Lymph # Pender # Eos # Baso # PT INR APTT pO2 19 L VBG pH 7.28 L VBG pCO2 66 H* VBG HCO3 24.8 VBG Total CO2 33.0 H VBG O2 Sat (Calc) 33.5 L VBG Base Excess 2.4 H VBG Potassium 4.0 Glucose 81 Lactate 1.3 FiO2 21.0 Crit Value Called To Ryan kilpatrick Crit Value Called By 23 Crit Value Read Back Y Blood Gas Notified Time 2104 Sodium 147 140.0 Potassium 4.4 Chloride 103 106.0 Carbon Dioxide 29 Anion Gap 19 BUN 18 Creatinine 0.8 Est GFR ( Amer) > 60 Est GFR (Non-Af Amer) > 60 POC Glucose (mg/dL) Random Glucose 98 Calcium 9.9 Phosphorus 3.4 Magnesium 2.0 Total Bilirubin 0.4 AST 35 ALT 37 Alkaline Phosphatase 86 Total Creatine Kinase 71 Troponin I < 0.0120 Total Protein 8.1 Albumin 4.6 Globulin 3.6 Albumin/Globulin Ratio 1.3 Triglycerides Cholesterol LDL Cholesterol Direct HDL Cholesterol Venous Blood Potassium 4.0 Phenytoin Alcohol, Quantitative < 10 Blood Type O POSITIVE Antibody Screen Negative BBK History Checked No verified bt 03/26/17 03/26/17 03/26/17 05:25 05:25 05:25 WBC 9.8 RBC 4.35 L Hgb 13.7 Hct 40.7 MCV 93.6 MCH 31.4 H MCHC 33.5 RDW 13.3 Plt Count 148 MPV 9.0 Neut % (Auto) 55.2 Lymph % (Auto) 23.2 Pender % (Auto) 14.2 H Eos % (Auto) 6.1 H Baso % (Auto) 1.3 Neut # 5.4 Lymph # 2.3 Pender # 1.4 H Eos # 0.6 Baso # 0.1 PT INR APTT pO2 VBG pH VBG pCO2 VBG HCO3 VBG Total CO2 VBG O2 Sat (Calc) VBG Base Excess VBG Potassium Glucose Lactate FiO2 Crit Value Called To Crit Value Called By Crit Value Read Back Blood Gas Notified Time Sodium 145 Potassium 4.0 Chloride 105 Carbon Dioxide 25 Anion Gap 19 BUN 12 Creatinine 0.6 L Est GFR ( Amer) > 60 Est GFR (Non-Af Amer) > 60 POC Glucose (mg/dL) Random Glucose 108 Calcium 9.6 Phosphorus Magnesium Total Bilirubin 0.7 AST 29 ALT 32 Alkaline Phosphatase 86 Total Creatine Kinase Troponin I < 0.0120 Total Protein 7.2 Albumin 4.0 Globulin 3.2 Albumin/Globulin Ratio 1.3 Triglycerides Cholesterol LDL Cholesterol Direct HDL Cholesterol Venous Blood Potassium Phenytoin Alcohol, Quantitative Blood Type Antibody Screen BBK History Checked 03/26/17 03/26/17 03/26/17 05:30 07:39 10:20 WBC RBC Hgb Hct MCV MCH MCHC RDW Plt Count MPV Neut % (Auto) Lymph % (Auto) Pender % (Auto) Eos % (Auto) Baso % (Auto) Neut # Lymph # Pender # Eos # Baso # PT INR APTT pO2 VBG pH VBG pCO2 VBG HCO3 VBG Total CO2 VBG O2 Sat (Calc) VBG Base Excess VBG Potassium Glucose Lactate FiO2 Crit Value Called To Crit Value Called By Crit Value Read Back Blood Gas Notified Time Sodium Potassium Chloride Carbon Dioxide Anion Gap BUN Creatinine Est GFR ( Amer) Est GFR (Non-Af Amer) POC Glucose (mg/dL) Random Glucose Calcium Phosphorus Magnesium Total Bilirubin AST ALT Alkaline Phosphatase Total Creatine Kinase Troponin I < 0.0120 < 0.0120 Total Protein Albumin Globulin Albumin/Globulin Ratio Triglycerides 99 D Cholesterol 168 LDL Cholesterol Direct 89 HDL Cholesterol 55 Venous Blood Potassium Phenytoin 33.9 H Alcohol, Quantitative Blood Type Antibody Screen BBK History Checked Assessment & Plan (1) Generalized weakness Assessment and Plan: Pt denies LOC no true syncope Most likely secondary to Heat exhaustion / dehydration Status: Acute Priority: High
[2017-03-26] MEDS: Pilocarpine 1% Opht Soln OU SCH ×2 (13:00→17:20)
[2017-03-26] MEDS: Pantoprazole 40 mg EC Tab PO SCH (13:44)
[2017-03-26] MEDS: Tiotropium 18 mcg Cap For Inhalation INH SCH (13:45)
[2017-03-26] MEDS ORDERED: Influenza Vaccine 18yr & older 0.5 ML/45 MCG SYR IM ONE (14:02)
[2017-03-26] MEDS ORDERED: Pneumococcal 23-Valent Vaccine IM ONE (14:05)
[2017-03-26] MEDS: levoFLOXacin 500 mg in D5W 500 MG/100 ML BAG IVPB SCH (16:00)
--- NOTE | 2017-03-26 19:37 | CARD ---
APPROVED REPORT EXAM: Two-dimensional and M-mode echocardiogram with Doppler and color Doppler. Other Information Quality : AverageRhythm : NSR INDICATION Syncope 2D DIMENSIONS IVSd0.74 (0.7-1.1cm)LVDd3.73 (3.9-5.9cm) LVOT Diameter1.92 (1.8-2.4cm)PWd0.66 (0.7-1.1cm) IVSs1.01 (0.8-1.2cm)LVDs2.95 (2.5-4.0cm) FS (%) 21.0 %PWs1.20 (0.8-1.2cm) Mitral Valve MV E Jspsryiu98.2cm/sMV DECEL [id number] A Heznuvrz79.4cm/s MV [id number]/A ratio0.7MVA (PHT)2.56cm2 TDI E/Lateral E'0.0E/Medial E'0.0 Tricuspid Valve TR Peak [id number]/sRAP [id number] Peak Gr.25mmHg [id number] LEFT VENTRICLE The left ventricle is normal in size. There is normal left ventricular wall thickness. The left ventricular function is normal. The left ventricular ejection fraction is - 60%.. There is normal LV segmental wall motion. Transmitral Doppler flow pattern is Grade I-abnormal relaxation pattern. No left ventricle thrombus noted on this study. There is no ventricular septal defect visualized. There is no left ventricular aneurysm. There is no mass noted in the left ventricle. RIGHT VENTRICLE The right ventricle is normal size. There is normal right ventricular wall thickness. The right ventricular systolic function is normal. ATRIA The left atrium size is normal. There is no thrombus suspected in the left atrium. The right atrium size is normal. The interatrial septum is intact with no evidence for an atrial septal defect. AORTIC VALVE The aortic valve is normal in structure and function. No aortic regurgitation is present. There is no aortic valvular stenosis. MITRAL VALVE The mitral valve is normal in structure and function. There is no evidence of mitral valve prolapse. There is no mitral valve stenosis. There is no mitral valve regurgitation noted. TRICUSPID VALVE The tricuspid valve is normal in structure and function. There is mild tricuspid regurgitation. Right ventricular systolic pressure is estimated at 39 mmHg. There is no tricuspid valve prolapse or vegetation. There is no tricuspid valve stenosis. PULMONIC VALVE The pulmonic valve is not visualized. Doppler studies of the PV were not performed. GREAT VESSELS The aortic root is normal in size. The IVC is normal in size and collapses >50% with inspiration. PERICARDIAL EFFUSION The pericardium appears normal. There is no pleural effusion. <Conclusion> The study is only of fair quality. The left ventricle is normal in size and wall thickness. The left ventricular function is normal. The left ventricular ejection fraction is - 60%. The left atrium, right ventricle and right atrium are normal in size. The mitral, aortic and tricuspid valves are normal. There is mild tricuspid regurgitation.
[2017-03-26] MEDS: Latanoprost 0.005% Opht SOUTION OU SCH (22:09)
[2017-03-27 07:08] LABS: HEMATOCRIT 38.9 % (35.0-51.0); MEAN CELL VOLUME 92.2 fl (80.0-94.0); MEAN CORPUSCULAR HEMOGLOBIN 31.4 pg (27.0-31.0); MEAN CORPUSCULAR HGB CONC 34.1 g/dL (33.0-37.0); RED CELL DISTRIBUTION WIDTH 12.9 % (11.5-14.5); WHITE BLOOD COUNT 9.9 K/uL (4.8-10.8)
[2017-03-27 07:17] LABS: BLOOD UREA NITROGEN 10 mg/dl (9-20); CALCIUM 9.8 mg/dL (8.4-10.2); CARBON DIOXIDE 25 mmol/L (22-30); CHLORIDE 104 mmol/L (98-107); GFR AFRICAN-AMERICAN > 60; GLUCOSE,RANDOM 106 mg/dL (75-110); POTASSIUM 3.5 MMOL/L (3.6-5.0); SODIUM 142 mmol/l (132-148)
--- NOTE | 2017-03-27 07:26 | CP.PCM.PN ---
Subjective - Date & Time of Evaluation Date of Evaluation: 03/27/17 Time of Evaluation: 07:24 - Subjective Subjective: as per the nurse, patient wants to be discharged home Objective - Vital Signs/Intake and Output Vital Signs (last 24 hours): Temp Pulse Resp BP Pulse Ox 98.4 F 95 H 20 122/74 96 03/27/17 00:31 03/27/17 00:31 03/27/17 00:31 03/27/17 00:31 03/27/17 00:31 - Medications Medications: Current Medications Acetaminophen (Tylenol 325mg Tab) 650 mg PO Q6 PRN PRN Reason: pain or fever Albuterol Sulfate (Albuterol 0.083% Inhal Briana (2.5 Mg/3 Ml) Ud) 2.5 mg INH RQ6 PRN PRN Reason: Shortness of Breath Heparin Sodium (Porcine) (Heparin) 5,000 units SC Q12 HENRY PRN Reason: Protocol Last Admin: 03/26/17 21:10 Dose: 5,000 units Levofloxacin/Dextrose (Levaquin 500mg) 500 mg in 100 mls @ 100 mls/hr IVPB DAILY HENRY Last Admin: 03/26/17 16:00 Dose: 100 mls/hr Ceftriaxone Sodium 1 gm/ (Sodium Chloride) 100 mls @ 100 mls/hr IVPB DAILY [facility] Last Admin: 03/26/17 13:40 Dose: 100 mls/hr Latanoprost (Xalatan Opht) 1 drop OU HS HENRY Last Admin: 03/26/17 22:09 Dose: 1 drop Pantoprazole Sodium (Protonix Ec Tab) 40 mg PO DAILY HENRY Last Admin: 03/26/17 13:44 Dose: 40 mg Phenytoin Sodium (Dilantin) 200 mg PO BID HENRY Last Admin: 03/26/17 17:20 Dose: 200 mg Pilocarpine HCl (Isopto Carpine 1% Opht Soln) 1 drop OU TID [facility]ENRY Last Admin: 03/26/17 17:20 Dose: 1 drop Tiotropium [place] (Spiriva) 18 mcg INH DAILY HENRY Last Admin: 03/26/17 13:45 Dose: 18 mcg - Labs Labs: 03/27/17 06:45 03/27/17 06:45 PT 12.0 Seconds (9.8-13.1) 03/25/17 17:11 INR 1.2 (0.9-1.2) 03/25/17 17:11 APTT 26.9 Seconds (25.6-37.1) 03/25/17 17:11 - Constitutional Appears: No Acute Distress - Respiratory Exam Respiratory Exam: Clear to Ausculation Bilateral - Cardiovascular Exam Cardiovascular Exam: REGULAR RHYTHM. absent: Murmur Assessment and Plan - Assessment and Plan (Free Text) Assessment: questionable syncope due to heat pneumonia Plan: continue iv antibiotics
[2017-03-27] MEDS ORDERED: Potassium Chloride 10 mEq ER Tab PO ONE (08:00)
[2017-03-27] MEDS: Pilocarpine 1% Opht Soln OU SCH ×3 (09:45→16:28)
[2017-03-27] MEDS: Pantoprazole 40 mg EC Tab PO SCH (09:46)
[2017-03-27] MEDS: Tiotropium 18 mcg Cap For Inhalation INH SCH (09:47)
--- NOTE | 2017-03-27 11:14 | CARD ---
APPROVED REPORT EKG Measurement Heart [id number] <Conclusion> Normal sinus rhythm Minimal voltage criteria for LVH, may be normal variant Borderline ECG
[2017-03-27] MEDS: levoFLOXacin 500 mg in D5W 500 MG/100 ML BAG IVPB SCH (12:11)
--- NOTE | 2017-03-27 14:49 | CP.PCM.CON ---
History of Present Illness - History of Present Illness History of Present Illness: Mr. Dorado is a 71-year-old man who is admitted for syncope and found to have pneumonia. The patient is a poor historian, but apparently has epilepsy and is on dilantin along with many other medications. His dilantin level was supratherapeutic at 33 on initial labs. Today, the patient is doing well, following commands, and has not had any further episodes of loss of consciousness. He is legally blind and requires assistance. He states that he has a homemaker that helps him with his medications and activities of daily living at home. Review of Systems - Review of Systems Systems not reviewed;Unavailable: Altered Mental Status Past Patient History - Past Medical History & Family History Past Medical History?: Yes - Past Social History Alcohol: None Drugs: Denies - CARDIAC Hx Congestive Heart Failure: Yes Hx Hypercholesterolemia: Yes Hx Hypertension: Yes - PULMONARY Hx Chronic Obstructive Pulmonary Disease (COPD): Yes Hx Pneumonia: Yes - NEUROLOGICAL Hx Seizures: Yes - HEENT Hx Blind: Yes (b/l) - RENAL Hx Chronic Kidney Disease: No - ENDOCRINE/METABOLIC Hx Hypothyroidism: No - HEMATOLOGICAL/ONCOLOGICAL Hx Human Immunodeficiency Virus (HIV): No - INTEGUMENTARY Hx Dermatological Problems: No - MUSCULOSKELETAL/RHEUMATOLOGICAL Hx Arthritis: Yes Hx Rheumatoid Arthritis: No - GASTROINTESTINAL Hx Gastrointestinal Disorders: Yes - GENITOURINARY/GYNECOLOGICAL Hx Genitourinary Disorders: No - PSYCHIATRIC Hx Psychophysiologic Disorder: No Hx Substance Use: No - SURGICAL HISTORY Hx Appendectomy: Yes - ANESTHESIA Hx Anesthesia: Yes Hx Anesthesia Reactions: No Hx Malignant Hyperthermia: No Meds Allergies/Adverse Reactions: Allergies Allergy/AdvReac Type Severity Reaction Status Date / Time No Known Allergies Allergy Verified 12/21/16 18:14 - Medications Medications: Current Medications Acetaminophen (Tylenol 325mg Tab) 650 mg PO Q6 PRN PRN Reason: pain or fever Albuterol Sulfate (Albuterol 0.083% Inhal Briana (2.5 Mg/3 Ml) Ud) 2.5 mg INH RQ6 PRN PRN Reason: Shortness of Breath Heparin Sodium (Porcine) (Heparin) 5,000 units SC Q12 [facility] PRN Reason: Protocol Last Admin: 03/27/17 09:45 Dose: 5,000 units Levofloxacin/Dextrose (Levaquin 500mg) 500 mg in 100 mls @ 100 mls/hr IVPB DAILY [facility] Last Admin: 03/27/17 12:11 Dose: 100 mls/hr Ceftriaxone Sodium 1 gm/ (Sodium Chloride) 100 mls @ 100 mls/hr IVPB DAILY [facility] Last Admin: 03/27/17 12:11 Dose: 100 mls/hr Latanoprost (Xalatan Opht) 1 drop OU HS [facility] Last Admin: 03/26/17 22:09 Dose: 1 drop Pantoprazole Sodium (Protonix Ec Tab) 40 mg PO DAILY [facility] Last Admin: 03/27/17 09:46 Dose: 40 mg Phenytoin Sodium (Dilantin) 200 mg PO BID [facility] Last Admin: 03/27/17 09:44 Dose: 200 mg Pilocarpine HCl (Isopto Carpine 1% Opht Soln) 1 drop OU TID [facility] Last Admin: 03/27/17 09:45 Dose: 1 drop Tiotropium [place] (Spiriva) 18 mcg INH DAILY [facility] Last Admin: 03/27/17 09:47 Dose: 18 mcg Physical Exam - Constitutional Appears: Well, Confused - Head Exam Head Exam: ATRAUMATIC, NORMAL INSPECTION - Eye Exam Eye Exam: EOMI Additional comments: Blind - ENT Exam ENT Exam: Mucous Membranes Moist, Normal Exam - Neck Exam Neck exam: Positive for: Normal Inspection - Respiratory Exam Respiratory Exam: Clear to Auscultation Bilateral, NORMAL BREATHING PATTERN - Cardiovascular Exam Cardiovascular Exam: REGULAR RHYTHM, +S1, +S2 - GI/Abdominal Exam GI & Abdominal Exam: Normal Bowel Sounds, Soft. absent: Tenderness - Rectal Exam Rectal Exam: Deferred - Extremities Exam Extremities exam: Positive for: normal inspection - Back Exam Back exam: NORMAL INSPECTION - Neurological Exam Neurological exam: Abnormal Gait, Altered, CN II-XII Intact Additional comments: Ataxic, unable to follow fingers to test for nystagmus, strength is symmetrical , sensation is intact, reflexes are normal. Romberg was not tested. Gait is ataxic. - Psychiatric Exam Psychiatric exam: Normal Affect, Normal Mood - Skin Skin Exam: Dry, Intact, Normal Color, Warm Results - Vital Signs Recent Vital Signs: Last Vital Signs Temp 98.3 F 03/27/17 07:25 Pulse 96 H 03/27/17 07:25 Resp 18 03/27/17 07:25 BP 122/73 03/27/17 07:25 Pulse Ox 93 L 03/27/17 14:31 - Labs Result Diagrams: 03/27/17 06:45 03/27/17 06:45 Labs: Laboratory Results - last 24 hr 03/26/17 03/27/17 03/27/17 16:04 06:45 06:45 WBC 9.9 RBC 4.22 L Hgb 13.3 Hct 38.9 MCV 92.2 MCH 31.4 H MCHC 34.1 RDW 12.9 Plt Count 170 Sodium 142 Potassium 3.5 L Chloride 104 Carbon Dioxide 25 Anion Gap 17 BUN 10 Creatinine 0.6 L Est GFR ( Amer) > 60 Est GFR (Non-Af Amer) > 60 POC Glucose (mg/dL) 171 H Random Glucose 106 Calcium 9.8 Assessment & Plan (1) Syncope Assessment and Plan: May be due to dehydration, vaso-vagal, polypharmacy, or dilantin overdose. I recommend hydration, treatment of underlying infection, and decreasing the dilatin dose by 1/2 to 100 mg BID. No further recommendations from a neurological perspective at this time. Thank you. Status: Acute Priority: Medium
[2017-03-27] MEDS: Latanoprost 0.005% Opht SOUTION OU SCH (21:45)
[2017-03-28 07:44] LABS: HEMATOCRIT 42.7 % (35.0-51.0); MEAN CELL VOLUME 93.3 fl (80.0-94.0); MEAN CORPUSCULAR HEMOGLOBIN 30.9 pg (27.0-31.0); MEAN CORPUSCULAR HGB CONC 33.2 g/dL (33.0-37.0); RED CELL DISTRIBUTION WIDTH 13.1 % (11.5-14.5); WHITE BLOOD COUNT 12.4 K/uL (4.8-10.8)
[2017-03-28 08:25] LABS: BLOOD UREA NITROGEN 8 mg/dl (9-20); CALCIUM 10.3 mg/dL (8.4-10.2); CARBON DIOXIDE 27 mmol/L (22-30); CHLORIDE 104 mmol/L (98-107); GFR AFRICAN-AMERICAN > 60; GLUCOSE,RANDOM 98 mg/dL (75-110); POTASSIUM 3.6 MMOL/L (3.6-5.0); SODIUM 145 mmol/l (132-148)
--- NOTE | 2017-03-28 08:41 | CP.PCM.PN ---
Subjective - Date & Time of Evaluation Date of Evaluation: 03/28/17 Time of Evaluation: 08:39 - Subjective Subjective: a poor historian does not answer to questions agitated and confused Objective - Vital Signs/Intake and Output Vital Signs (last 24 hours): Temp Pulse Resp BP Pulse Ox 97.7 F 82 20 134/82 98 03/28/17 07:41 03/28/17 07:41 03/28/17 07:41 03/28/17 07:41 03/28/17 07:41 - Medications Medications: Current Medications Acetaminophen (Tylenol 325mg Tab) 650 mg PO Q6 PRN PRN Reason: pain or fever Albuterol Sulfate (Albuterol 0.083% Inhal Briana (2.5 Mg/3 Ml) Ud) 2.5 mg INH RQ6 PRN PRN Reason: Shortness of Breath Heparin Sodium (Porcine) (Heparin) 5,000 units SC Q12 [facility] PRN Reason: Protocol Last Admin: 03/27/17 21:46 Dose: 5,000 units Levofloxacin/Dextrose (Levaquin 500mg) 500 mg in 100 mls @ 100 mls/hr IVPB DAILY [facility] Last Admin: 03/27/17 12:11 Dose: 100 mls/hr Ceftriaxone Sodium 1 gm/ (Sodium Chloride) 100 mls @ 100 mls/hr IVPB DAILY [facility] Last Admin: 03/27/17 12:11 Dose: 100 mls/hr Latanoprost (Xalatan Opht) 1 drop OU HS [facility] Last Admin: 03/27/17 21:45 Dose: 1 drop Pantoprazole Sodium (Protonix Ec Tab) 40 mg PO DAILY [facility] Last Admin: 03/27/17 09:46 Dose: 40 mg Phenytoin Sodium (Dilantin) 100 mg PO BID [facility] Last Admin: 03/27/17 16:31 Dose: Not Given Pilocarpine HCl (Isopto Carpine 1% Opht Soln) 1 drop OU TID [facility] Last Admin: 03/27/17 16:28 Dose: 1 drop Tiotropium [place] (Spiriva) 18 mcg INH DAILY [facility] Last Admin: 03/27/17 09:47 Dose: 18 mcg - Labs Labs: 03/28/17 07:10 03/28/17 07:10 PT 12.0 Seconds (9.8-13.1) 03/25/17 17:11 INR 1.2 (0.9-1.2) 03/25/17 17:11 APTT 26.9 Seconds (25.6-37.1) 03/25/17 17:11 - Constitutional Appears: No Acute Distress - Respiratory Exam Respiratory Exam: Clear to Ausculation Bilateral, NORMAL BREATHING PATTERN - Cardiovascular Exam Cardiovascular Exam: REGULAR RHYTHM. absent: Murmur - GI/Abdominal Exam GI & Abdominal Exam: Soft, Normal Bowel Sounds. absent: Tenderness Assessment and Plan - Assessment and Plan (Free Text) Assessment: pneumonia history of seizure disorder COPD mental confustion on 1:1 on iv antibiotics neurology decreased dose of dilantin chest X-ray follow up official report is pending. Plan: continue iv antibiotics D/C planning
--- NOTE | 2017-03-28 09:30 | PQF GENQUE ---
Dr. Lamas, Please provide a nutritional diagnosis, if known, related to the information below: if in agreement 1. The following clinical indicators are present in the medical record: BMI:17.5: listed in the RD consult 2. Nutritional consult stated:Per RN, pt's PO intake is "not good", he eats very little: BMI Classification: Underweight 3. The patient received the following treatment, evaluation or monitoring:RD recommended Glucerna; monitoring PO intake, weight status, all pertinent labs , and skin OR: Other explanation of clinical finding: i.e. Small framed, or Underweight etc. OR: Disagree: no additional diagnoses This form is a permanent part of the medical record Clarification of your documentation is requested to better reflect the severity of illness and intensity of treatment of your patient. Indicators present [] Specify: [] [] Specify: [] [] Specify: [] [] Specify: [] Location in the medical record that reflects the above clinical findings: [] Treatment Provided: [] PHYSICIAN'S RESPONSE Based on your medical judgment of the clinical indicators outlined above please clarify the following: [] Practitioner response [] If unable to determine, please check the box, sign and date. Present On Admission (POA) Indicator: [] Present at the time of admission [] Not present at the time of admission [] Clinically Undetermined In responding to this query, please exercise your independent professional judgment. The fact that a question is asked does not imply that any particular answer is desired or expected. Thank you for your clarification on this documentation. If you have any questions please call. * Thank you, Kathleen Dawson RN ext. #[phone]: Natasha GAMINO
[2017-03-28] MEDS: Pantoprazole 40 mg EC Tab PO SCH (09:41)
[2017-03-28] MEDS: Tiotropium 18 mcg Cap For Inhalation INH SCH (09:41)
[2017-03-28] MEDS: Pilocarpine 1% Opht Soln OU SCH ×3 (09:44→17:11)
--- NOTE | 2017-03-28 11:13 | CP.PCM.PN ---
Subjective - Date & Time of Evaluation Date of Evaluation: 03/28/17 Time of Evaluation: 11:11 - Subjective Subjective: Mr. Dorado was seen and examined at the bedside. He remains with responsive to all stimuli. He is not in any kind of distress. There was no untoward events overnight. Objective - Vital Signs/Intake and Output Vital Signs (last 24 hours): Temp Pulse Resp BP Pulse Ox 97.7 F 82 20 134/82 98 03/28/17 07:41 03/28/17 07:41 03/28/17 07:41 03/28/17 07:41 03/28/17 07:41 - Medications Medications: Current Medications Acetaminophen (Tylenol 325mg Tab) 650 mg PO Q6 PRN PRN Reason: pain or fever Albuterol Sulfate (Albuterol 0.083% Inhal Briana (2.5 Mg/3 Ml) Ud) 2.5 mg INH RQ6 PRN PRN Reason: Shortness of Breath Heparin Sodium (Porcine) (Heparin) 5,000 units SC Q12 [facility] PRN Reason: Protocol Last Admin: 03/28/17 09:44 Dose: 5,000 units Levofloxacin/Dextrose (Levaquin 500mg) 500 mg in 100 mls @ 100 mls/hr IVPB DAILY [facility] Last Admin: 03/27/17 12:11 Dose: 100 mls/hr Ceftriaxone Sodium 1 gm/ (Sodium Chloride) 100 mls @ 100 mls/hr IVPB DAILY [facility] Last Admin: 03/28/17 09:42 Dose: 100 mls/hr Latanoprost (Xalatan Opht) 1 drop OU HS [facility] Last Admin: 03/27/17 21:45 Dose: 1 drop Pantoprazole Sodium (Protonix Ec Tab) 40 mg PO DAILY [facility] Last Admin: 03/28/17 09:41 Dose: 40 mg Phenytoin Sodium (Dilantin) 100 mg PO BID [facility] Last Admin: 03/28/17 09:41 Dose: 100 mg Pilocarpine HCl (Isopto Carpine 1% Opht Soln) 1 drop OU TID [facility] Last Admin: 03/28/17 09:44 Dose: 1 drop Tiotropium [place] (Spiriva) 18 mcg INH DAILY [facility] Last Admin: 03/28/17 09:41 Dose: 18 mcg - Labs Labs: 03/28/17 07:10 03/28/17 07:10 PT 12.0 Seconds (9.8-13.1) 03/25/17 17:11 INR 1.2 (0.9-1.2) 03/25/17 17:11 APTT 26.9 Seconds (25.6-37.1) 03/25/17 17:11 - Constitutional Appears: No Acute Distress - Head Exam Head Exam: ATRAUMATIC, NORMAL INSPECTION, NORMOCEPHALIC - Back Exam Additional comments: Remains ataxic, unable to follow fingers to test for nystagmus, strength is symmetrical, sensation is intact, reflexes are normal. Gait is ataxic. - Neurological Exam Neurological Exam: Alert, Awake Neuro motor strength exam: Left Upper Extremity: 5, Right Upper Extremity: 5, Left Lower Extremity: 5, Right Lower Extremity: 5 Additional comments: Neurological unchanged from previous examination with extra Assessment and Plan (1) Syncope Assessment & Plan: Case discussed with Dr. Mcguire, continue current medical and physical therapies. Status: Acute
[2017-03-28] MEDS: levoFLOXacin 500 mg in D5W 500 MG/100 ML BAG IVPB SCH (11:20)
--- NOTE | 2017-03-28 15:04 | RAD ---
HISTORY: F/u RUL PNA COMPARISON: 03/25/2017 FINDINGS: LUNGS: There is persistent airspace disease in the right upper lobe with apparent spiculations laterally. The left lung is clear. The lungs are well inflated. PLEURA: No significant pleural effusion identified, no pneumothorax apparent. CARDIOVASCULAR: Normal. OSSEOUS STRUCTURES: There are old fracture deformities in the left mid posterior ribs. VISUALIZED UPPER ABDOMEN: Normal. OTHER FINDINGS: None. IMPRESSION: Persistent airspace disease in the right upper lobe with apparent spiculations laterally. Although findings could represent pneumonia, underlying mass cannot be entirely excluded. If clinically indicated, CT scan of the thorax with intravenous contrast may be performed for definitive evaluation.
[2017-03-28 16:47] LABS: RBC URINE 7 /hpf (0-3); URINE BILIRUBIN NEGATIVE (NEGATIVE); URINE BLOOD NEGATIVE (NEGATIVE); URINE COLOR YELLOW (YELLOW); URINE GLUCOSE (UA) NEG (Normal); URINE KETONE NEGATIVE (NEGATIVE); URINE LEUKOCYTE ESTERASE NEG Leu/uL (Negative); URINE PROTEIN 30 mg/dL (NEGATIVE); URINE UROBILINOGEN 0.2-1.0 mg/dL (0.2-1.0); WBC URINE 1 /hpf (0-5)
[2017-03-28] MEDS: Latanoprost 0.005% Opht SOUTION OU SCH (21:01)
[2017-03-29 06:34] LABS: HEMATOCRIT 42.3 % (35.0-51.0); MEAN CELL VOLUME 93.3 fl (80.0-94.0); MEAN CORPUSCULAR HEMOGLOBIN 31.2 pg (27.0-31.0); MEAN CORPUSCULAR HGB CONC 33.4 g/dL (33.0-37.0); RED CELL DISTRIBUTION WIDTH 13.6 % (11.5-14.5); WHITE BLOOD COUNT 10.3 K/uL (4.8-10.8)
[2017-03-29 06:42] LABS: BLOOD UREA NITROGEN 8 mg/dl (9-20); CARBON DIOXIDE 26 mmol/L (22-30); CHLORIDE 105 mmol/L (98-107); GFR AFRICAN-AMERICAN > 60; GLUCOSE,RANDOM 97 mg/dL (75-110); POTASSIUM 3.6 MMOL/L (3.6-5.0); SODIUM 145 mmol/l (132-148)
--- NOTE | 2017-03-29 08:02 | CP.PCM.PN ---
Subjective - Date & Time of Evaluation Date of Evaluation: 03/29/17 Time of Evaluation: 08:00 - Subjective Subjective: A 71 year old male on 1:1 watch no cough Objective - Vital Signs/Intake and Output Vital Signs (last 24 hours): Temp Pulse Resp BP Pulse Ox 98 F 95 H 18 103/63 96 03/28/17 16:08 03/28/17 16:08 03/28/17 16:08 03/28/17 16:08 03/28/17 16:08 - Medications Medications: Current Medications Acetaminophen (Tylenol 325mg Tab) 650 mg PO Q6 PRN PRN Reason: pain or fever Albuterol Sulfate (Albuterol 0.083% Inhal Briana (2.5 Mg/3 Ml) Ud) 2.5 mg INH RQ6 PRN PRN Reason: Shortness of Breath Heparin Sodium (Porcine) (Heparin) 5,000 units SC Q12 [facility] PRN Reason: Protocol Last Admin: 03/28/17 21:01 Dose: 5,000 units Levofloxacin/Dextrose (Levaquin 500mg) 500 mg in 100 mls @ 100 mls/hr IVPB DAILY [facility] Last Admin: 03/28/17 11:20 Dose: 100 mls/hr Ceftriaxone Sodium 1 gm/ (Sodium Chloride) 100 mls @ 100 mls/hr IVPB DAILY [facility] Last Admin: 03/28/17 09:42 Dose: 100 mls/hr Latanoprost (Xalatan Opht) 1 drop OU HS [facility] Last Admin: 03/28/17 21:01 Dose: 1 drop Pantoprazole Sodium (Protonix Ec Tab) 40 mg PO DAILY [facility] Last Admin: 03/28/17 09:41 Dose: 40 mg Phenytoin Sodium (Dilantin) 100 mg PO BID [facility] Last Admin: 03/28/17 17:11 Dose: 100 mg Pilocarpine HCl (Isopto Carpine 1% Opht Soln) 1 drop OU TID [facility] Last Admin: 03/28/17 17:11 Dose: 1 drop Tiotropium [place] (Spiriva) 18 mcg INH DAILY [facility] Last Admin: 03/28/17 09:41 Dose: 18 mcg - Labs Labs: 03/29/17 06:25 03/29/17 06:25 PT 12.0 Seconds (9.8-13.1) 03/25/17 17:11 INR 1.2 (0.9-1.2) 03/25/17 17:11 APTT 26.9 Seconds (25.6-37.1) 03/25/17 17:11 - Constitutional Appears: No Acute Distress - Respiratory Exam Respiratory Exam: Clear to Ausculation Bilateral, NORMAL BREATHING PATTERN - Cardiovascular Exam Cardiovascular Exam: REGULAR RHYTHM. absent: Murmur Assessment and Plan - Assessment and Plan (Free Text) Assessment: right upper lobe pneumonia syncopes low BMI of 17.5 leukocytosis improving Plan: CAT scan of chest with iv contrast D/C planning
[2017-03-29] MEDS ORDERED: Sodium Chloride 0.9% 50 ML IV ONE (08:17)
[2017-03-29] MEDS ORDERED: Iohexol 300 100 ML IJ ONE (08:17)
[2017-03-29] MEDS: Tiotropium 18 mcg Cap For Inhalation INH SCH (08:41)
[2017-03-29] MEDS: Pilocarpine 1% Opht Soln OU SCH ×3 (08:41→16:39)
[2017-03-29] MEDS: Pantoprazole 40 mg EC Tab PO SCH (08:42)
[2017-03-29] MEDS: levoFLOXacin 500 mg in D5W 500 MG/100 ML BAG IVPB SCH (08:45)
--- NOTE | 2017-03-29 10:33 | CT ---
PROCEDURE: CT Chest with contrast HISTORY: Pneumonia, ? lung mass per cxr report COMPARISON: Portable chest 03/20/2017 8:09 a.m.. TECHNIQUE: Contiguous axial images were obtained through the chest with intravenous contrast enhancement. Sagittal and coronal reconstructions were performed. IV contrast: Omnipaque 300, 100 cc. Radiation dose (DLP): mGy-cm. This CT exam was performed using one or more of the following dose reduction techniques: Automated exposure control, adjustment of the mA and/or kV according to patient size, and/or use of iterative reconstruction technique. FINDINGS: LUNGS: Extensive emphysematous changes seen diffusely bilaterally but predominantly at the upper lung lobes. There are multiple areas of masslike infiltrates appreciated primarily at the right lung. There difficult to measure because there are aerated components as well as solid components. The measurements will be based on the solid components primarily with adjacent aerated components in the same slice where possible. The largest of these foci seen at the right upper lobe and image 53 series 2 measuring 3.4 x 2.7 cm. Immediately antro inferior to it is a 3.0 x 2.9 cm mixed solid and partially aerated lesion also at the right upper lobe in image 58. Smaller lesions are mostly aerated at the right upper lobe and image 51 measuring 1.4 x 1.0 cm and in image 73 measuring 1.0 x 0.8 cm. In the right lower lobe and image 75 there is a 0.9 x 1.1 cm predominately solid nodule with a 1.1 x 0.8 cm similar nodule in image 85. There is a 7 mm non solid nodule in image 91. At the left upper lobe, there is a 2 mm subpleural nodule in image 38 with a 2.5 mm nodule at the lingula near the left base anteriorly and image 111. The findings are suspicious former neoplasm including possible bronchoalveolar cell carcinoma given the infiltrate type pattern and most of these abnormal lesions exhibit though other neoplasms are still possible. Infectious etiology is not completely excluded. CT or bronchoscopic tissue diagnosis is recommended MEDIASTINUM: Unremarkable thoracic aorta. No aneurysm or dissection. Normal sized heart. Main pulmonary artery unremarkable. No vascular congestion. No lymphadenopathy. PLEURA: No pleural fluid. No pneumothorax. BONES: No fracture. No destructive lesion. UPPER ABDOMEN: Grossly unremarkable. OTHER FINDINGS: None. IMPRESSION: Findings suspicious for potential malignancy predominate at the right lung with minimal nodules identified at the left lung as discussed above. The largest lesion is seen the right upper lobe and is accessible bilaterally by CT-guided biopsy but also by bronchoscopic approach the right upper lobe bronchus branch. The differs diagnosis is infection with inflammation not completely excluded. No significant lymphadenopathy. No pleural effusion identified.
--- NOTE | 2017-03-29 12:44 | CP.PCM.PN ---
Subjective - Date & Time of Evaluation Date of Evaluation: 03/29/17 Time of Evaluation: 12:41 - Subjective Subjective: Mr. Dorado was seen and examined at the bedside. He has no noticeable ataxia , more responsive to both verbal and tactile stimuli. He denies any pain, headache, dizziness, numbness, or weakness. According to the patient sitter, his gait is more improved from yesterday, still needs assistance but no uncontrollable ataxia. There was no untoward events overnight. He is not in any kind of distress. Objective - Vital Signs/Intake and Output Vital Signs (last 24 hours): Temp Pulse Resp BP Pulse Ox 98.5 F 88 20 111/62 92 L 03/29/17 08:29 03/29/17 10:55 03/29/17 08:29 03/29/17 10:55 03/29/17 10:55 - Medications Medications: Current Medications Acetaminophen (Tylenol 325mg Tab) 650 mg PO Q6 PRN PRN Reason: pain or fever Albuterol Sulfate (Albuterol 0.083% Inhal Briana (2.5 Mg/3 Ml) Ud) 2.5 mg INH RQ6 PRN PRN Reason: Shortness of Breath Heparin Sodium (Porcine) (Heparin) 5,000 units SC Q12 [facility] PRN Reason: Protocol Last Admin: 03/29/17 08:42 Dose: 5,000 units Levofloxacin/Dextrose (Levaquin 500mg) 500 mg in 100 mls @ 100 mls/hr IVPB DAILY [facility] Last Admin: 03/29/17 08:45 Dose: 100 mls/hr Ceftriaxone Sodium 1 gm/ (Sodium Chloride) 100 mls @ 100 mls/hr IVPB DAILY [facility] Last Admin: 03/29/17 08:44 Dose: 100 mls/hr Latanoprost (Xalatan Opht) 1 drop OU HS [facility] Last Admin: 03/28/17 21:01 Dose: 1 drop Pantoprazole Sodium (Protonix Ec Tab) 40 mg PO DAILY [facility] Last Admin: 03/29/17 08:42 Dose: 40 mg Phenytoin Sodium (Dilantin) 100 mg PO BID [facility] Last Admin: 03/29/17 08:42 Dose: 100 mg Pilocarpine HCl (Isopto Carpine 1% Opht Soln) 1 drop OU TID [facility] Last Admin: 09/29/17 12:19 Dose: 1 drop Tiotropium [place] (Spiriva) 18 mcg INH DAILY [facility] Last Admin: 03/29/17 08:41 Dose: 18 mcg - Labs Labs: 03/29/17 06:25 03/29/17 06:25 PT 12.0 Seconds (9.8-13.1) 03/25/17 17:11 INR 1.2 (0.9-1.2) 03/25/17 17:11 APTT 26.9 Seconds (25.6-37.1) 03/25/17 17:11 - Constitutional Appears: No Acute Distress - Neurological Exam Neurological Exam: Alert, Awake, CN II-XII Intact, Normal Gait, Oriented x3 Neuro motor strength exam: Left Upper Extremity: 5, Right Upper Extremity: 5, Left Lower Extremity: 5, Right Lower Extremity: 5 Additional comments: Neurological improved from previous examination. There was no ataxia or gait instability noted. He is able to follow simple commands. Assessment and Plan (1) Syncope Assessment & Plan: Case discussed with Dr. Mcguire, Continue current phenytoin dose of 100 mg PO BID and his other current medical, physical therapies. Status: Acute
[2017-03-29] MEDS: Latanoprost 0.005% Opht SOUTION OU SCH (21:33)
[2017-03-30] MEDS: Pilocarpine 1% Opht Soln OU SCH ×3 (08:12→16:14)
[2017-03-30] MEDS: levoFLOXacin 500 mg in D5W 500 MG/100 ML BAG IVPB SCH (08:12)
[2017-03-30] MEDS: Pantoprazole 40 mg EC Tab PO SCH (08:13)
[2017-03-30] MEDS: Tiotropium 18 mcg Cap For Inhalation INH SCH (08:14)
--- NOTE | 2017-03-30 08:25 | CP.PCM.PN ---
Subjective - Date & Time of Evaluation Date of Evaluation: 03/30/17 Time of Evaluation: 08:23 - Subjective Subjective: insomnia he took restoryl and tramadol last night left knee pain Objective - Vital Signs/Intake and Output Vital Signs (last 24 hours): Temp Pulse Resp BP Pulse Ox 98.5 F 107 H 20 125/70 94 L 03/30/17 07:43 03/30/17 07:43 03/30/17 07:43 03/30/17 07:43 03/30/17 07:43 - Medications Medications: Current Medications Acetaminophen (Tylenol 325mg Tab) 650 mg PO Q6 PRN PRN Reason: pain or fever Albuterol Sulfate (Albuterol 0.083% Inhal [place]ana (2.5 Mg/3 Ml) Ud) 2.5 mg INH RQ6 PRN PRN Reason: Shortness of Breath Heparin Sodium (Porcine) (Heparin) 5,000 units SC Q12 [facility] PRN Reason: Protocol Last Admin: 03/30/17 08:11 Dose: 5,000 units Levofloxacin/Dextrose (Levaquin 500mg) 500 mg in 100 mls @ 100 mls/hr IVPB DAILY [facility] Last Admin: 03/30/17 08:12 Dose: 100 mls/hr Ceftriaxone Sodium 1 gm/ (Sodium Chloride) 100 mls @ 100 mls/hr IVPB DAILY [facility] Last Admin: 03/30/17 08:14 Dose: 100 mls/hr Latanoprost (Xalatan Opht) 1 drop OU HS [facility] Last Admin: 03/29/17 21:33 Dose: 1 drop Pantoprazole Sodium (Protonix Ec Tab) 40 mg PO DAILY [facility] Last Admin: 03/30/17 08:13 Dose: 40 mg Phenytoin Sodium (Dilantin) 100 mg PO BID [facility] Last Admin: 03/30/17 08:10 Dose: 100 mg Pilocarpine HCl (Isopto Carpine 1% Opht Soln) 1 drop OU TID [facility] Last Admin: 03/30/17 08:12 Dose: 1 drop Temazepam (Restoril) 15 mg PO HS PRN PRN Reason: Insomnia Last Admin: 03/29/17 23:53 Dose: 15 mg Tiotropium [place] (Spiriva) 18 mcg INH DAILY [facility] Last Admin: 03/30/17 08:14 Dose: 18 mcg - Labs Labs: 03/29/17 06:25 03/29/17 06:25 PT 12.0 Seconds (9.8-13.1) 03/25/17 17:11 INR 1.2 (0.9-1.2) 03/25/17 17:11 APTT 26.9 Seconds (25.6-37.1) 03/25/17 17:11 - Constitutional Appears: No Acute Distress - ENT Exam ENT Exam: Mucous Membranes Moist - Respiratory Exam Respiratory Exam: Clear to Ausculation Bilateral, NORMAL BREATHING PATTERN - Cardiovascular Exam Cardiovascular Exam: REGULAR RHYTHM. absent: Murmur - Neurological Exam Neurological Exam: Alert, Awake Assessment and Plan - Assessment and Plan (Free Text) Assessment: CAT scan of chest with IV contrast showed a suspicious lung malignancy. COPD epilepsy heat exhaustion syncope Plan: pulmonology consult -pending continue iv levaquin and rocephin
[2017-03-30] MEDS: Latanoprost 0.005% Opht SOUTION OU SCH (21:30)
[2017-03-31] MEDS: Pantoprazole 40 mg EC Tab PO SCH (08:47)
[2017-03-31] MEDS: Tiotropium 18 mcg Cap For Inhalation INH SCH (08:48)
[2017-03-31] MEDS: Pilocarpine 1% Opht Soln OU SCH ×3 (08:48→16:41)
[2017-03-31] MEDS: levoFLOXacin 500 mg in D5W 500 MG/100 ML BAG IVPB SCH (08:52)
--- NOTE | 2017-03-31 12:53 | CP.PCM.PN ---
Subjective - Date & Time of Evaluation Date of Evaluation: 03/31/17 Time of Evaluation: 12:49 - Subjective Subjective: patient is on 1:1 watch mild occipital headaches Objective - Vital Signs/Intake and Output Vital Signs (last 24 hours): Temp Pulse Resp BP Pulse Ox 98.3 F 81 18 130/77 98 03/31/17 07:45 03/31/17 07:45 03/31/17 07:45 03/31/17 07:45 03/31/17 07:45 - Medications Medications: Current Medications Acetaminophen (Tylenol 325mg Tab) 650 mg PO Q6 PRN PRN Reason: pain or fever Albuterol Sulfate (Albuterol 0.083% Inhal Briana (2.5 Mg/3 Ml) Ud) 2.5 mg INH RQ6 PRN PRN Reason: Shortness of Breath Heparin Sodium (Porcine) (Heparin) 5,000 units SC Q12 [facility] PRN Reason: Protocol Last Admin: 03/31/17 08:47 Dose: 5,000 units Levofloxacin/Dextrose (Levaquin 500mg) 500 mg in 100 mls @ 100 mls/hr IVPB DAILY [facility] Last Admin: 03/31/17 08:52 Dose: 100 mls/hr Latanoprost (Xalatan Opht) 1 drop OU HS [facility] Last Admin: 03/30/17 21:30 Dose: 1 drop Pantoprazole Sodium (Protonix Ec Tab) 40 mg PO DAILY [facility] Last Admin: 03/31/17 08:47 Dose: 40 mg Phenytoin Sodium (Dilantin) 100 mg PO BID [facility] Last Admin: 03/31/17 08:47 Dose: 100 mg Pilocarpine HCl (Isopto Carpine 1% Opht Soln) 1 drop OU TID [facility] Last Admin: 03/31/17 08:48 Dose: 1 drop Temazepam (Restoril) 15 mg PO HS PRN PRN Reason: Insomnia Last Admin: 03/29/17 23:53 Dose: 15 mg Tiotropium Norris (Spiriva) 18 mcg INH DAILY [facility] Last Admin: 03/31/17 08:48 Dose: 18 mcg Tramadol HCl (Ultram) 50 mg PO Q6 PRN PRN Reason: Pain, severe (8-10) Last Admin: 03/30/17 19:57 Dose: 50 mg - Labs Labs: 03/29/17 06:25 03/29/17 06:25 PT 12.0 Seconds (9.8-13.1) 03/25/17 17:11 INR 1.2 (0.9-1.2) 03/25/17 17:11 APTT 26.9 Seconds (25.6-37.1) 03/25/17 17:11 - Constitutional Appears: No Acute Distress - Respiratory Exam Respiratory Exam: Decreased Breath Sounds, NORMAL BREATHING PATTERN - Cardiovascular Exam Cardiovascular Exam: Tachycardia, REGULAR RHYTHM Assessment and Plan - Assessment and Plan (Free Text) Assessment: 71 year old male with history of COPD epilepsy syncope Plan: I spoke with a transmission inspector, Dr. Gupta. He might need a lung biopsy as an out patient follow up with his PMD and transmission inspector. will do observation for tachycardia. D/C planning he has two home care persons at home
--- NOTE | 2017-03-31 13:54 | CP.PCM.CON ---
History of Present Illness - History of Present Illness History of Present Illness: Called to evaluate this patient with RUL mass. Had sx of increase in sob, phlegm , and cough. Former heavy smoker (2 to 3 packs per day) for 40+ years. PMHx, COPD Sz disorder. NKDA, Fam Hx NonCont. S/ Patient states he's feeling better. O/ VSS Afeb Head neg adeno pos huong Heart RRR, ns1s2, Neg M Lungs Very Distant BS No, C,C,E. Neuro Non Focal. Labs see below. a/p Acute Resp Insuff COPD Pneumnia / tracheobronchitis. Rul mass + other nodules. Patient can be d/c on PO abx and medrolpak. Cont with EDWAR. Cont with previous meds. Maintain O2 Sat > 89%. Patient had 95 on RA yesterday. Needs to have mass w/u as outpatient. Would benefit from IR (ct guided bx as outpatient.) Tx you for this consult. Past Patient History - Past Medical History & Family History Past Medical History?: Yes - Past Social History Alcohol: None Drugs: Denies - CARDIAC Hx Congestive Heart Failure: Yes Hx Hypercholesterolemia: Yes Hx Hypertension: Yes - PULMONARY Hx Chronic Obstructive Pulmonary Disease (COPD): Yes Hx Pneumonia: Yes - NEUROLOGICAL Hx Seizures: Yes - HEENT Hx Blind: Yes (b/l) - RENAL Hx Chronic Kidney Disease: No - ENDOCRINE/METABOLIC Hx Hypothyroidism: No - HEMATOLOGICAL/ONCOLOGICAL Hx Human Immunodeficiency Virus (HIV): No - INTEGUMENTARY Hx Dermatological Problems: No - MUSCULOSKELETAL/RHEUMATOLOGICAL Hx Arthritis: Yes Hx Rheumatoid Arthritis: No - GASTROINTESTINAL Hx Gastrointestinal Disorders: Yes - GENITOURINARY/GYNECOLOGICAL Hx Genitourinary Disorders: No - PSYCHIATRIC Hx Psychophysiologic Disorder: No Hx Substance Use: No - SURGICAL HISTORY Hx Appendectomy: Yes - ANESTHESIA Hx Anesthesia: Yes Hx Anesthesia Reactions: No Hx Malignant Hyperthermia: No Meds Allergies/Adverse Reactions: Allergies Allergy/AdvReac Type Severity Reaction Status Date / Time No Known Allergies Allergy Verified 12/21/16 18:14 - Medications Medications: Current Medications Acetaminophen (Tylenol 325mg Tab) 650 mg PO Q6 PRN PRN Reason: pain or fever Albuterol Sulfate (Albuterol 0.083% Inhal Briana (2.5 Mg/3 Ml) Ud) 2.5 mg INH RQ6 PRN PRN Reason: Shortness of Breath Heparin Sodium (Porcine) (Heparin) 5,000 units SC Q12 [facility] PRN Reason: Protocol Last Admin: 03/31/17 08:47 Dose: 5,000 units Levofloxacin/Dextrose (Levaquin 500mg) 500 mg in 100 mls @ 100 mls/hr IVPB DAILY [facility] Last Admin: 03/31/17 08:52 Dose: 100 mls/hr Latanoprost (Xalatan Opht) 1 drop OU HS [facility] Last Admin: 03/30/17 21:30 Dose: 1 drop Pantoprazole Sodium (Protonix Ec Tab) 40 mg PO DAILY [facility] Last Admin: 03/31/17 08:47 Dose: 40 mg Phenytoin Sodium (Dilantin) 100 mg PO BID [facility] Last Admin: 03/31/17 08:47 Dose: 100 mg Pilocarpine HCl (Isopto Carpine 1% Opht Soln) 1 drop OU TID [facility] Last Admin: 03/31/17 13:23 Dose: 1 drop Temazepam (Restoril) 15 mg PO HS PRN PRN Reason: Insomnia Last Admin: 03/29/17 23:53 Dose: 15 mg Tiotropium Wharton (Spiriva) 18 mcg INH DAILY [facility] Last Admin: 03/31/17 08:48 Dose: 18 mcg Tramadol HCl (Ultram) 50 mg PO Q6 PRN PRN Reason: Pain, severe (8-10) Last Admin: 03/30/17 19:57 Dose: 50 mg Results - Vital Signs Recent Vital Signs: Last Vital Signs Temp 98.3 F 03/31/17 07:45 Pulse 81 03/31/17 07:45 Resp 18 03/31/17 07:45 BP 130/77 03/31/17 07:45 Pulse Ox 98 03/31/17 07:45 - Labs Result Diagrams: 03/29/17 06:25 03/29/17 06:25
[2017-03-31] MEDS: Latanoprost 0.005% Opht SOUTION OU SCH (21:12)
--- NOTE | 2017-04-01 08:10 | CP.PCM.PN ---
Subjective - Date & Time of Evaluation Date of Evaluation: 04/01/17 Time of Evaluation: 08:07 - Subjective Subjective: mild right side neck pain Objective - Vital Signs/Intake and Output Vital Signs (last 24 hours): Temp Pulse Resp BP Pulse Ox 98.8 F 97 H 18 116/73 97 04/01/17 00:11 04/01/17 00:11 04/01/17 00:11 04/01/17 00:11 04/01/17 00:11 - Medications Medications: Current Medications Acetaminophen (Tylenol 325mg Tab) 650 mg PO Q6 PRN PRN Reason: pain or fever Last Admin: 03/31/17 15:12 Dose: 650 mg Albuterol Sulfate (Albuterol 0.083% Inhal Briana (2.5 Mg/3 Ml) Ud) 2.5 mg INH RQ6 PRN PRN Reason: Shortness of Breath Heparin Sodium (Porcine) (Heparin) 5,000 units SC Q12 [facility] PRN Reason: Protocol Last Admin: 03/31/17 20:10 Dose: 5,000 units Levofloxacin/Dextrose (Levaquin 500mg) 500 mg in 100 mls @ 100 mls/hr IVPB DAILY [facility] Last Admin: 03/31/17 08:52 Dose: 100 mls/hr Latanoprost (Xalatan Opht) 1 drop OU HS [facility] Last Admin: 03/31/17 21:12 Dose: 1 drop Pantoprazole Sodium (Protonix Ec Tab) 40 mg PO DAILY [facility] Last Admin: 03/31/17 08:47 Dose: 40 mg Phenytoin Sodium (Dilantin) 100 mg PO BID [facility] Last Admin: 03/31/17 16:41 Dose: 100 mg Pilocarpine HCl (Isopto Carpine 1% Opht Soln) 1 drop OU TID [facility] Last Admin: 03/31/17 16:41 Dose: 1 drop Temazepam (Restoril) 15 mg PO HS PRN PRN Reason: Insomnia Last Admin: 03/31/17 22:45 Dose: 15 mg Tiotropium Titus (Spiriva) 18 mcg INH DAILY [facility] Last Admin: 03/31/17 08:48 Dose: 18 mcg Tramadol HCl (Ultram) 50 mg PO Q6 PRN PRN Reason: Pain, severe (8-10) Last Admin: 03/31/17 22:45 Dose: 50 mg - Labs Labs: 03/29/17 06:25 03/29/17 06:25 PT 12.0 Seconds (9.8-13.1) 03/25/17 17:11 INR 1.2 (0.9-1.2) 03/25/17 17:11 APTT 26.9 Seconds (25.6-37.1) 03/25/17 17:11 - Constitutional Appears: No Acute Distress - Respiratory Exam Respiratory Exam: Decreased Breath Sounds - Cardiovascular Exam Cardiovascular Exam: REGULAR RHYTHM. absent: Murmur Assessment and Plan - Assessment and Plan (Free Text) Assessment: COPD right upper lung mass seizure syncope Plan: as per pulmo consult, work up for right upper lung mass as an out patient. can be discharged home follow up with a manager multimedia
[2017-04-01 08:59] VITALS: BP 133/77; PULSE 103; RESP 20; TEMP 98.1; O2SAT 96
[2017-04-01] MEDS: Pilocarpine 1% Opht Soln OU SCH ×3 (10:11→13:25)
[2017-04-01] MEDS: levoFLOXacin 500 mg in D5W 500 MG/100 ML BAG IVPB SCH (10:12)
[2017-04-01] MEDS: Pantoprazole 40 mg EC Tab PO SCH (10:13)
[2017-04-01] MEDS: Tiotropium 18 mcg Cap For Inhalation INH SCH (10:14)
--- NOTE | 2017-04-01 14:27 | CP.PCM.PN ---
Subjective - Date & Time of Evaluation Date of Evaluation: 04/01/17 Time of Evaluation: 14:24 - Subjective Subjective: Mr. Dorado was seen and examined at the bedside. He is alert, oriented denies any headache, gait instability. He is responsive to all stimuli. He is not in any acute distress. There was no untoward events overnight. Objective - Vital Signs/Intake and Output Vital Signs (last 24 hours): Temp Pulse Resp BP Pulse Ox 98.1 F 103 H 20 133/77 96 04/01/17 08:49 04/01/17 08:49 04/01/17 08:49 04/01/17 08:49 04/01/17 08:49 - Medications Medications: Current Medications Acetaminophen (Tylenol 325mg Tab) 650 mg PO Q6 PRN PRN Reason: pain or fever Last Admin: 03/31/17 15:12 Dose: 650 mg Albuterol Sulfate (Albuterol 0.083% Inhal Briana (2.5 Mg/3 Ml) Ud) 2.5 mg INH RQ6 PRN PRN Reason: Shortness of Breath Heparin Sodium (Porcine) (Heparin) 5,000 units SC Q12 [facility] PRN Reason: Protocol Last Admin: 04/01/17 10:11 Dose: 5,000 units Latanoprost (Xalatan Opht) 1 drop OU HS [facility] Last Admin: 03/31/17 21:12 Dose: 1 drop Pantoprazole Sodium (Protonix Ec Tab) 40 mg PO DAILY [facility] Last Admin: 04/01/17 10:13 Dose: 40 mg Phenytoin Sodium (Dilantin) 100 mg PO BID [facility] Last Admin: 04/01/17 10:10 Dose: 100 mg Pilocarpine HCl (Isopto Carpine 1% Opht Soln) 1 drop OU TID [facility] Last Admin: 04/01/17 13:25 Dose: 1 drop Temazepam (Restoril) 15 mg PO HS PRN PRN Reason: Insomnia Last Admin: 03/31/17 22:45 Dose: 15 mg Tiotropium Girard (Spiriva) 18 mcg INH DAILY [facility] Last Admin: 04/01/17 10:14 Dose: 18 mcg Tramadol HCl (Ultram) 50 mg PO Q6 PRN PRN Reason: Pain, severe (8-10) Last Admin: 03/31/17 22:45 Dose: 50 mg - Labs Labs: 03/29/17 06:25 03/29/17 06:25 PT 12.0 Seconds (9.8-13.1) 03/25/17 17:11 INR 1.2 (0.9-1.2) 03/25/17 17:11 APTT 26.9 Seconds (25.6-37.1) 03/25/17 17:11 - Constitutional Appears: Well - Neurological Exam Neurological Exam: Alert, Awake, Normal Gait, Oriented x3 Neuro motor strength exam: Left Upper Extremity: 5, Right Upper Extremity: 5, Left Lower Extremity: 5, Right Lower Extremity: 5 Additional comments: Neurological improved from previous examination. Assessment and Plan (1) Syncope Assessment & Plan: Case discussed with Dr. Mcguire, continue dilantin 100 mg PO BID. Follow up as an outpatient in the office for seizure monitoring and control. Status: Acute
== END 2017-04-01 16:20 | disposition home or self-care (01) | DRG 541 ==
LOC: H.ER 16:28 → H.ERHOLD 20:13 → OBSVTOIN 20:13 → H.TEL 03-26 08:45 → H.MEDSURG1 03-26 17:36
PROVIDERS: ADMIT Internal Medicine; ATTEND Internal Medicine
DX: J44.0 Chronic obstructive pulmonary disease with (acute) lower respiratory infection (principal); J18.9 Pneumonia, unspecified organism; I11.0 Hypertensive heart disease with heart failure; E86.0 Dehydration; I50.9 Heart failure, unspecified; E11.9 Type 2 diabetes mellitus without complications; G40.909 Epilepsy, unspecified, not intractable, without status epilepticus; G89.29 Other chronic pain; R91.8 Other nonspecific abnormal finding of lung field; E78.00 Pure hypercholesterolemia, unspecified; G47.00 Insomnia, unspecified; M19.90 Unspecified osteoarthritis, unspecified site; Z68.1 Body mass index [BMI] 19.9 or less, adult; H54.8 Legal blindness, as defined in USA; T67.5XXA Heat exhaustion, unspecified, initial encounter; T67.1XXA Heat syncope, initial encounter; X58.XXXA Exposure to other specified factors, initial encounter; Z87.01 Personal history of pneumonia (recurrent); Z79.82 Long term (current) use of aspirin; Z87.891 Personal history of nicotine dependence; Y92.810 Car as the place of occurrence of the external cause

== ENCOUNTER 2018-01-07 12:25 | Inpatient (IN) | payer OTHER ==
[2018-01-07 12:25] VITALS: BMI 17.2
[2018-01-07] MEDS ORDERED: Albuterol-Ipratrop 3 mg / 0.5 (3 ml) UD INH STA (13:18)
--- NOTE | 2018-01-07 13:23 | ED PDOC ---
HPI: SOB/CHF/COPD Time Seen by Provider: 01/07/18 12:58 Chief Complaint (Nursing): Shortness Of Breath Chief Complaint (Provider): Shortness of Breath History Per: Patient History/Exam Limitations: no limitations Onset/Duration Of Symptoms: Days (x5) Current Symptoms Are (Timing): Still Present Associated Symptoms: Productive Cough (productive of green sputum). denies: Fever, Chills, Chest Pain Additional Complaint(s): 72 year old male with a past medical history of emphysema and seizures presents to the emergency department complaining of shortness of breath x5 days. Patient also notes a cough productive of green sputum. Denies fever, chest pain. PMD: Lalo Márquez Past Medical History Reviewed: Historical Data, Nursing Documentation, Vital Signs Vital Signs: Last Vital Signs Temp 97.4 F L 01/08/18 08:17 Pulse 79 01/08/18 08:17 Resp 19 01/08/18 08:17 BP 126/74 01/08/18 08:17 Pulse Ox 98 01/08/18 08:17 - Medical History PMH: Arthritis, CHF, COPD, Diabetes, HTN, Hypercholesterolemia, Pneumonia, Seizures Denies: HIV, Hypothyroidism, Chronic Kidney Disease, Rheumatoid Arthritis - Surgical History Surgical History: Appendectomy - Family History Family History: States: Unknown Family Hx - Immunization History Hx Tetanus Toxoid Vaccination: No Hx Influenza Vaccination: No Hx Pneumococcal Vaccination: No - Home Medications Home Medications: Ambulatory Orders Medication Instructions Recorded Albuterol Sulfate [Ventolin Hfa] 2 puff IH Q6 PRN 01/07/18 Aspirin [Ecotrin] 81 mg PO DAILY 01/07/18 Brimonidine 0.2% [Alphagan 0.2% 1 drop EACHEYE Q12 01/07/18 Opht] Dorzolamide 2%/Timolol 0.5% 1 drop EACHEYE Q12 01/07/18 [Cosopt 2%-0.5% Opht] Fluticasone/Vilanterol [Breo 1 puff IH DAILY 01/07/18 Ellipta 100-25 Mcg INH] Gabapentin [Neurontin] 300 mg PO HS 01/07/18 Latanoprost 0.005% Opht [Xalatan 1 drop EACHEYE HS 01/07/18 Opht] Melatonin [Melatonin] 1 mg PO HS 01/07/18 Naproxen [Naprosyn] 500 mg PO Q12 PRN 01/07/18 Phenytoin, Extended [Dilantin] 100 mg PO Q12 01/07/18 Pilocarpine 1% Opht [Isopto 1 drop EACHEYE Q8 01/07/18 Carpine 1% Opht Soln] Ranitidine HCl [Zantac] 150 mg PO BID 01/07/18 Vitamin B Complex [Super B-50 1 cap PO DAILY 01/07/18 Complex] - Allergies Allergies/Adverse Reactions: Allergies Allergy/AdvReac Type Severity Reaction Status Date / Time No Known Allergies Allergy Verified 01/07/18 12:33 Review of Systems ROS Statement: Except As Marked, All Systems Reviewed And Found Negative Constitutional: Negative for: Fever Cardiovascular: Negative for: Chest Pain, Palpitations Respiratory: Positive for: Cough (productive of green sputum), Shortness of Breath Physical Exam - Reviewed Nursing Documentation Reviewed: Yes Vital Signs Reviewed: Yes - Physical Exam Appears: Positive for: Non-toxic, No Acute Distress Head Exam: Positive for: ATRAUMATIC, NORMAL INSPECTION, NORMOCEPHALIC Skin: Positive for: Normal Color, Warm, Dry. Negative for: Rash Eye Exam: Positive for: Normal appearance, EOMI, PERRL. Negative for: Nystagmus ENT: Positive for: Normal ENT Inspection. Negative for: Nasal Congestion, Tonsillar Exudate, Tonsillar Swelling Neck: Positive for: Normal, Painless ROM, Supple Cardiovascular/Chest: Positive for: Regular Rate, Rhythm, Chest Non Tender. Negative for: Murmur, Tachycardia Respiratory: Positive for: Crackles (fine basilar crackles on the left ), Wheezing (Bilateral), Other (speaking full sentences). Negative for: Rales, Rhonchi, Respiratory Distress Gastrointestinal/Abdominal: Positive for: Normal Exam, Bowel Sounds, Soft. Negative for: Tenderness, Mass, Guarding, Rebound Back: Positive for: Normal Inspection. Negative for: L CVA Tenderness, R CVA Tenderness, Vertebral Tenderness Extremity: Positive for: Normal ROM. Negative for: Tenderness, Calf Tenderness , Deformity, Swelling Neurologic/Psych: Positive for: Alert, Oriented, Gait - Laboratory Results Result Diagrams: 01/07/18 13:45 01/07/18 13:45 - ECG O2 Sat by Pulse Oximetry: 88 (RA) Pulse Ox Interpretation: Normal Medical Decision Making Medical Decision Makin Initial Impression 72 year old male presenting with shortness of breath Initial Plan: * EKG * PROBNP * CMP * Troponin * CBC * PTT * Prothrombin Time * CXR * Albuterol 3 mL INH * Solumedrol 125 mg IVP * Blood Culture * Peak Flow * Reevaluation 1402 Chest Radiograph HISTORY: SOB COMPARISON: Comparison made with chest radiograph 03/28/2017 FINDINGS: LUNGS: There appears to be some minimal linear atelectasis and or scarring in the left lung base and along the left hemidiaphragm. PLEURA: No significant pleural effusion identified, no pneumothorax apparent. CARDIOVASCULAR: Heart appears mildly enlarged. OSSEOUS STRUCTURES: No significant abnormalities. VISUALIZED UPPER ABDOMEN: Normal. OTHER FINDINGS: None. IMPRESSION: There appears to be some minimal linear atelectasis and or scarring in the left lung base and along the left hemidiaphragm Documented by Lyndsey Pacheco acting as a scribe for Shanae Carr MD. All medical record entries made by the Scribe were at my direction and personally dictated by me. I have reviewed the chart and agree that the record accurately reflects my personal performance of the history, physical exam, medical decision making, and the department course for this patient. I have also personally directed, reviewed, and agree with the discharge instructions and disposition. Disposition - Clinical Impression Clinical Impression: COPD exacerbation - Disposition Disposition Time: 16:17 Condition: STABLE - Pt Status Changed To: Hospital Disposition Of: Inpatient - Admit Certification Admit to Inpatient:: After my assessment, the patient will require hospitalization for at least two midnights. This is because of the severity of symptoms shown, intensity of services needed, and/or the medical risk in this patient being treated as an outpatient. - POA Present On Arrival: None
[2018-01-07 13:57] LABS: BASO # 0.1 K/uL (0.0-0.2); BASO % 1.4 % (0.0-2.0); EOS # 0.1 K/uL (0.0-0.7); HEMOGLOBIN 15.2 g/dL (12.0-18.0); LYMPH # 1.7 K/uL (1.0-4.3); LYMPH % 17.9 % (20.0-40.0); MEAN CELL VOLUME 93.5 fl (80.0-94.0); MEAN CORPUSCULAR HEMOGLOBIN 31.4 pg (27.0-31.0); MEAN CORPUSCULAR HGB CONC 33.6 g/dL (33.0-37.0); MEAN PLATELET VOLUME 9.3 fl (7.2-11.7); MONO # 0.9 K/uL (0.0-0.8); MONO % 9.2 % (0.0-10.0); NEUT # 6.6 K/uL (1.8-7.0); NEUT % 70.5 % (50.0-75.0); NRBC % 0.1 % (0.0-0.0); RBC 4.83 Mil/uL (4.40-5.90); RED CELL DISTRIBUTION WIDTH 12.6 % (11.5-14.5); WHITE BLOOD COUNT 9.4 K/uL (4.8-10.8)
--- NOTE | 2018-01-07 14:04 | RAD ---
Date of service: 01/07/2018 HISTORY: SOB COMPARISON: Comparison made with chest radiograph 03/28/2017 FINDINGS: LUNGS: There appears to be some minimal linear atelectasis and or scarring in the left lung base and along the left hemidiaphragm. PLEURA: No significant pleural effusion identified, no pneumothorax apparent. CARDIOVASCULAR: Heart appears mildly enlarged. OSSEOUS STRUCTURES: No significant abnormalities. VISUALIZED UPPER ABDOMEN: Normal. OTHER FINDINGS: None. IMPRESSION: There appears to be some minimal linear atelectasis and or scarring in the left lung base and along the left hemidiaphragm
[2018-01-07 14:13] LABS: ALB/GLOB RATIO 1.2 (1.0-2.1); ALT/SGPT 34 U/L (21-72); AST/SGOT 36 U/L (17-59); BLOOD UREA NITROGEN 15 mg/dl (9-20); GFR AFRICAN-AMERICAN > 60; GFR NON-AFRICAN AMERICAN > 60
[2018-01-07] MEDS ORDERED: Albuterol-Ipratrop 3 mg / 0.5 (3 ml) UD ONE (14:25)
[2018-01-07 14:26] LABS: B-TYPE NATRIURETIC PEPTIDE 156 pg/ml (0-900)
[2018-01-07 14:28] LABS: PROTHROMBIN TIME 12.4 Seconds (9.8-13.1)
[2018-01-07 14:29] LABS: INR 1.1 (0.9-1.2); PARTIAL THROMBOPLASTIN TIME 28.1 Seconds (25.6-37.1)
[2018-01-07] MEDS ORDERED: Lidocaine 1% Inj (20ml) ONE (15:07)
--- NOTE | 2018-01-07 18:39 | CP.PCM.HP ---
History of Present Illness - History of Present Illness History of Present Illness: 72 YR OLD MALE ADMITTED WITH ACUTE EXACERBATION OF COPD.C/O COUGH AND SOB X 5 DAYS.PT IS LEGALLY BLIND AND HAS A HISTORY OF SEIZURES AND COPD. Present on Admission - Present on Admission Any Indicators Present on Admission: Yes Past Patient History - Past Medical History & Family History Past Medical History?: Yes - Past Social History Smoking Status: Former Smoker - CARDIAC Hx Congestive Heart Failure: Yes Hx Hypercholesterolemia: Yes Hx Hypertension: Yes - PULMONARY Hx Chronic Obstructive Pulmonary Disease (COPD): Yes Hx Pneumonia: Yes - NEUROLOGICAL Hx Seizures: Yes - HEENT Hx Blind: Yes (b/l) - RENAL Hx Chronic Kidney Disease: No - ENDOCRINE/METABOLIC Hx Hypothyroidism: No - HEMATOLOGICAL/ONCOLOGICAL Hx Human Immunodeficiency Virus (HIV): No - INTEGUMENTARY Hx Dermatological Problems: No - MUSCULOSKELETAL/RHEUMATOLOGICAL Hx Arthritis: Yes Hx Rheumatoid Arthritis: No - GASTROINTESTINAL Hx Gastrointestinal Disorders: Yes - GENITOURINARY/GYNECOLOGICAL Hx Genitourinary Disorders: No - PSYCHIATRIC Hx Psychophysiologic Disorder: No - SURGICAL HISTORY Hx Appendectomy: Yes - ANESTHESIA Hx Anesthesia: Yes Hx Anesthesia Reactions: No Hx Malignant Hyperthermia: No Meds Allergies/Adverse Reactions: Allergies Allergy/AdvReac Type Severity Reaction Status Date / Time No Known Allergies Allergy Verified 01/07/18 12:33 Physical Exam - Constitutional Appears: Well, No Acute Distress - Head Exam Head Exam: ATRAUMATIC, NORMAL INSPECTION, NORMOCEPHALIC - Eye Exam Additional comments: BLIND - ENT Exam ENT Exam: Mucous Membranes Moist, Normal Exam - Neck Exam Neck exam: Positive for: Normal Inspection - Respiratory Exam Respiratory Exam: Decreased Breath Sounds, Prolonged Expiratory Phase, Rales, Wheezes, NORMAL BREATHING PATTERN - Cardiovascular Exam Cardiovascular Exam: REGULAR RHYTHM - GI/Abdominal Exam GI & Abdominal Exam: Normal Bowel Sounds, Soft. absent: Tenderness - Rectal Exam Rectal Exam: NORMAL INSPECTION - Exam Speculum exam: NORMAL SPECULUM EXAM - Extremities Exam Extremities exam: Positive for: normal inspection - Back Exam Back exam: NORMAL INSPECTION - Neurological Exam Neurological exam: Alert, CN II-XII Intact, Normal Gait, Oriented x3, Reflexes Normal - Psychiatric Exam Psychiatric exam: Normal Affect, Normal Mood - Skin Skin Exam: Dry, Intact, Normal Color, Warm Results - Vital Signs Recent Vital Signs: Last Vital Signs Temp 98.3 F 01/07/18 18:01 Pulse 96 H 01/07/18 18:01 Resp 17 01/07/18 18:01 BP 126/74 01/07/18 18:01 Pulse Ox 95 01/07/18 17:48 - Labs Result Diagrams: 01/07/18 13:45 01/07/18 13:45 Labs: Laboratory Results - last 24 hr 01/07/18 01/07/18 01/07/18 13:45 13:45 13:45 WBC 9.4 RBC 4.83 Hgb 15.2 Hct 45.1 MCV 93.5 MCH 31.4 H MCHC 33.6 RDW 12.6 Plt Count 221 MPV 9.3 Neut % (Auto) 70.5 Lymph % (Auto) 17.9 L [place] % (Auto) 9.2 Eos % (Auto) 1.0 Baso % (Auto) 1.4 Neut # (Auto) 6.6 Lymph # (Auto) 1.7 [place] # (Auto) 0.9 H Eos # (Auto) 0.1 Baso # (Auto) 0.1 PT 12.4 INR 1.1 APTT 28.1 Sodium 138 Potassium 4.2 Chloride 103 Carbon Dioxide 24 Anion Gap 15 BUN 15 Creatinine 0.7 L Est GFR ( Amer) > 60 Est GFR (Non-Af Amer) > 60 POC Glucose (mg/dL) Random Glucose 97 Calcium 10.0 Total Bilirubin 0.5 AST 36 ALT 34 Alkaline Phosphatase 97 Troponin I 0.0230 NT-Pro-B Natriuret Pep 156 Total Protein 7.5 Albumin 4.0 Globulin 3.5 Albumin/Globulin Ratio 1.2 01/07/18 17:50 WBC RBC Hgb Hct MCV MCH MCHC RDW Plt Count MPV Neut % (Auto) Lymph % (Auto) [place] % (Auto) Eos % (Auto) Baso % (Auto) Neut # (Auto) Lymph # (Auto) [place] # (Auto) Eos # (Auto) Baso # (Auto) PT INR APTT Sodium Potassium Chloride Carbon Dioxide Anion Gap BUN Creatinine Est GFR ( Amer) Est GFR (Non-Af Amer) POC Glucose (mg/dL) 99 Random Glucose Calcium Total Bilirubin AST ALT Alkaline Phosphatase Troponin I NT-Pro-B Natriuret Pep Total Protein Albumin Globulin Albumin/Globulin Ratio Assessment & Plan - Assessment and Plan (Free Text) Assessment: ACUTE EXAC OF COPD BLINDNESS HTN HYPERLIPIDEMIA SEIZURES HX OF CHF--COMPENSATED Plan: CONTINUE RX ORDERED
[2018-01-07] MEDS ORDERED: Albuterol HFA 90 mcg/actuation (8 g) IH PRN (18:43)
[2018-01-07] MEDS ORDERED: Naproxen 500 MG TAB PO PRN (18:43)
[2018-01-07] MEDS ORDERED: Sodium Chloride 3% for Inhalation 4 ML VIAL.NEB IH PRN (18:53)
[2018-01-07] MEDS ORDERED: Dorzolamide 2% Ophth Soln OU SCH (19:00)
[2018-01-07] MEDS: Albuterol-Ipratrop 3 mg / 0.5 (3 ml) UD INH SCH (19:02)
[2018-01-07 19:30] LABS: SQUAMOUS EPITHIAL < 1 /hpf (0-5); URINE BACTERIA RARE (<OCC); URINE BILIRUBIN NEGATIVE (NEGATIVE); URINE BLOOD SMALL (NEGATIVE); URINE CLARITY SLIGHTY-CLOUDY (Clear); URINE COLOR YELLOW (YELLOW); URINE GLUCOSE (UA) NEG (Normal); URINE LEUKOCYTE ESTERASE NEG Leu/uL (Negative); URINE PROTEIN NEGATIVE (NEGATIVE); URINE UROBILINOGEN 0.2-1.0 mg/dL (0.2-1.0)
[2018-01-07 20:30] LABS: ABG ALLEN TEST YES; ARTERIAL BLOOD GAS HEMOGLOBIN 15.7 g/dL (11.7-17.4); ARTERIAL BLOOD GAS O2 CAPACITY 21.1 mL/dL (16-24); ARTERIAL BLOOD GAS O2 SAT 94.8 % (95-98); ARTERIAL BLOOD GAS PCO2 45 mm/Hg (35-45); ARTERIAL BLOOD GAS PH 7.39 (7.35-7.45); ARTERIAL BLOOD GAS PO2 60 mm/Hg (80-100); ARTERIAL BLOOD GAS TCO2 28.6 mmol/L (22-28)
[2018-01-07] MEDS ORDERED: Patient's Own Med (Dorzolamide 2%/Timolol 0.5% [Cosopt 2%-0.5% Opht] 1 DROP) EACHEYE SCH (21:00)
[2018-01-07] MEDS ORDERED: methylPREDNISolone 40 MG in Sodium Chloride 0.9% 50 ML IVPB SCH (21:00)
[2018-01-07] MEDS: Fluticasone-Salmeterol 100-50mcg Diskus IH SCH (21:22)
[2018-01-07] MEDS: Latanoprost 0.005% Opht SOUTION OU SCH (21:24)
[2018-01-07] MEDS: Dorzolamide 2% Ophth Soln OU SCH (21:24)
[2018-01-07] MEDS: Pilocarpine 1% Opht Soln OU SCH (21:25)
[2018-01-07] MEDS: Brimonidine 0.2% 50 DROP/5 ML BOTTLE OU SCH (21:26)
[2018-01-07] MEDS: MethylPREDNISolone 40 mg Vial IVP SCH (21:27)
[2018-01-08] MEDS: Pilocarpine 1% Opht Soln OU SCH ×3 (00:54→17:37)
[2018-01-08] MEDS: Albuterol-Ipratrop 3 mg / 0.5 (3 ml) UD INH SCH ×4 (07:53→19:18)
[2018-01-08] MEDS: Fluticasone-Salmeterol 100-50mcg Diskus IH SCH ×2 (08:54→21:38)
[2018-01-08] MEDS: Brimonidine 0.2% 50 DROP/5 ML BOTTLE OU SCH ×2 (08:55→21:43)
[2018-01-08] MEDS: Enoxaparin 40 mg Syringe SC SCH (08:58)
[2018-01-08] MEDS: MethylPREDNISolone 40 mg Vial IVP SCH (09:01)
[2018-01-08] MEDS: Dorzolamide 2% Ophth Soln OU SCH ×2 (09:02→21:43)
--- NOTE | 2018-01-08 10:51 | CP.PCM.PN ---
Subjective - Date & Time of Evaluation Date of Evaluation: 01/08/18 Time of Evaluation: 10:52 - Subjective Subjective: C/O DIARRHEA THIS AM STILL COUGHING SOB IMPROVING Objective - Vital Signs/Intake and Output Vital Signs (last 24 hours): Temp Pulse Resp BP Pulse Ox 97.4 F L 79 19 126/74 98 01/08/18 08:17 01/08/18 08:17 01/08/18 08:17 01/08/18 08:17 01/08/18 08:17 - Medications Medications: Current Medications Albuterol (Ventolin Hfa 90 Mcg/Actuation (8 G)) 2 puff IH Q6 PRN PRN Reason: Shortness of Breath Albuterol/Ipratropium (Duoneb 3 Mg/0.5 Mg (3 Ml) Ud) 3 ml INH RQID [facility] Last Admin: 01/08/18 07:53 Dose: 3 ml Aspirin (Ecotrin) 81 mg PO DAILY [facility] Last Admin: 01/08/18 08:56 Dose: 81 mg Brimonidine Tartrate (Alphagan 0.2% Opht) 1 drop OU Q12 [facility] Last Admin: 01/08/18 08:55 Dose: 1 drop Dorzolamide HCl (Trusopt) 1 drop OU Q12@0900,2100 [facility] Last Admin: 01/08/18 09:02 Dose: 1 drop Enoxaparin Sodium (Lovenox) 40 mg SC DAILY [facility] PRN Reason: Protocol Last Admin: 01/08/18 08:58 Dose: 40 mg Gabapentin (Neurontin) 300 mg PO HS [facility] Last Admin: 01/07/18 21:27 Dose: 300 mg Latanoprost (Xalatan Opht) 1 drop OU HS [facility] Last Admin: 01/07/18 21:24 Dose: 1 drop Methylprednisolone (Solu-Medrol) 40 mg IVP Q12H [facility] Last Admin: 01/08/18 09:01 Dose: 40 mg Naproxen (Naproxen) 500 mg PO Q12 PRN PRN Reason: Pain, moderate (4-7) Phenytoin Sodium (Dilantin) 100 mg PO Q12 [facility] Last Admin: 01/08/18 08:56 Dose: 100 mg Pilocarpine HCl (Isopto Carpine 1% Opht Soln) 1 drop OU Q8 [facility] Last Admin: 01/08/18 08:57 Dose: 1 drop Fluticasone/Salmeterol (Advair Diskus 100/50) 1 puff IH Q12 [facility] Last Admin: 01/08/18 08:54 Dose: 1 puff Timolol Maleate (Timoptic 0.5% Oph Soln) 1 drop OU Q12H [facility] Last Admin: 01/08/18 09:01 Dose: 1 drop - Labs Labs: 01/07/18 13:45 01/07/18 13:45 PT 12.4 Seconds (9.8-13.1) 01/07/18 13:45 INR 1.1 (0.9-1.2) 01/07/18 13:45 APTT 28.1 Seconds (25.6-37.1) 01/07/18 13:45 - Constitutional Appears: No Acute Distress - Head Exam Head Exam: ATRAUMATIC, NORMAL INSPECTION, NORMOCEPHALIC - Eye Exam Additional comments: LEGALLY BLIND - ENT Exam ENT Exam: Mucous Membranes Moist, Normal Exam - Neck Exam Neck Exam: Full ROM, Normal Inspection. absent: Lymphadenopathy - Respiratory Exam Respiratory Exam: Decreased Breath Sounds, Rales, Wheezes, NORMAL BREATHING PATTERN - Cardiovascular Exam Cardiovascular Exam: REGULAR RHYTHM, +S1, +S2. absent: Murmur - GI/Abdominal Exam GI & Abdominal Exam: Soft, Normal Bowel Sounds. absent: Tenderness - Rectal Exam Rectal Exam: NORMAL INSPECTION - Extremities Exam Extremities Exam: Full ROM, Normal Capillary Refill, Normal Inspection. absent : Joint Swelling, Pedal Edema - Back Exam Back Exam: NORMAL INSPECTION - Neurological Exam Neurological Exam: Alert, Awake, CN II-XII Intact, Normal Gait, Oriented x3 - Psychiatric Exam Psychiatric exam: Normal Affect, Normal Mood - Skin Skin Exam: Dry, Intact, Normal Color, Warm Assessment and Plan - Assessment and Plan (Free Text) Assessment: COPD EXAC BLINDNESS HYPERTENSION ARTHRITIS DIARRHEA Plan: ANTIDIARRHEA MEDS TAPER STEROIDS COAT AGENT FOR DISCHARGE PLANNING FOR AM
[2018-01-08] MEDS ORDERED: guaiFENesin DM 200 mg-20 mg/10 ml UD PO PRN (10:53)
--- NOTE | 2018-01-08 11:14 | CARD ---
APPROVED REPORT Date of service: 01/07/2018 EKG Measurement Heart [id number] <Conclusion> Normal sinus rhythm Biatrial enlargement Abnormal ECG
[2018-01-08] MEDS: Bismuth Subsalicylate 262 mg/15 ml Sus (240 ml) PO SCH ×3 (12:16→21:41)
[2018-01-08] MEDS: Latanoprost 0.005% Opht SOUTION OU SCH (21:42)
[2018-01-09 00:37] VITALS: TEMP 97.6; O2SAT 95
[2018-01-09] MEDS: Bismuth Subsalicylate 262 mg/15 ml Sus (240 ml) PO SCH ×3 (01:28→08:37)
[2018-01-09] MEDS: Pilocarpine 1% Opht Soln OU SCH ×2 (01:28→08:39)
[2018-01-09] MEDS: Albuterol-Ipratrop 3 mg / 0.5 (3 ml) UD INH SCH ×2 (08:15→11:44)
--- NOTE | 2018-01-09 08:22 | CP.PCM.DIS ---
Provider - Provider Date of Admission: 01/07/18 16:17 Attending physician: Alex Davenport MD Time Spent in preparation of Discharge (in minutes): 35 Diagnosis - Discharge Diagnosis (1) COPD exacerbation Status: Acute (2) Blindness Status: Acute (3) Chronic osteoarthritis Status: Acute (4) Diarrhea Status: Acute Priority: High (5) History of seizure Status: Acute (6) Hyperlipemia Status: Chronic Priority: Medium Hospital Course - Lab Results Lab Results: Micro Results 01/07/18 12:00 Blood-Venous Blood Culture - Preliminary NO GROWTH AFTER 24 HOURS 01/07/18 19:15 Urine,Clean Catch Urine Culture - Preliminary No growth. Most Recent Lab Values WBC 9.4 K/uL (4.8-10.8) 01/07/18 13:45 RBC 4.83 Mil/uL (4.40-5.90) 01/07/18 13:45 Hgb 15.2 g/dL (12.0-18.0) 01/07/18 13:45 Hct 45.1 % (35.0-51.0) 01/07/18 13:45 MCV 93.5 fl (80.0-94.0) 01/07/18 13:45 MCH 31.4 pg (27.0-31.0) H 01/07/18 13:45 MCHC 33.6 g/dL (33.0-37.0) 01/07/18 13:45 RDW 12.6 % (11.5-14.5) 01/07/18 13:45 Plt Count 221 K/uL (130-400) 01/07/18 13:45 MPV 9.3 fl (7.2-11.7) 01/07/18 13:45 Neut % (Auto) 70.5 % (50.0-75.0) 01/07/18 13:45 Lymph % (Auto) 17.9 % (20.0-40.0) L 01/07/18 13:45 [place] % (Auto) 9.2 % (0.0-10.0) 01/07/18 13:45 Eos % (Auto) 1.0 % (0.0-4.0) 01/07/18 13:45 Baso % (Auto) 1.4 % (0.0-2.0) 01/07/18 13:45 Neut # (Auto) 6.6 K/uL (1.8-7.0) 01/07/18 13:45 Lymph # (Auto) 1.7 K/uL (1.0-4.3) 01/07/18 13:45 [place] # (Auto) 0.9 K/uL (0.0-0.8) H 01/07/18 13:45 Eos # (Auto) 0.1 K/uL (0.0-0.7) 01/07/18 13:45 Baso # (Auto) 0.1 K/uL (0.0-0.2) 01/07/18 13:45 PT 12.4 Seconds (9.8-13.1) 01/07/18 13:45 INR 1.1 (0.9-1.2) 01/07/18 13:45 APTT 28.1 Seconds (25.6-37.1) 01/07/18 13:45 pCO2 45 mm/Hg (35-45) 01/07/18 18:51 pO2 60 mm/Hg (80-100) L 01/07/18 18:51 HCO3 26.0 mmol/L (21-28) 01/07/18 18:51 ABG pH 7.39 (7.35-7.45) 01/07/18 18:51 ABG Total CO2 28.6 mmol/L (22-28) H 01/07/18 18:51 ABG O2 Saturation 94.8 % (95-98) L 01/07/18 18:51 ABG O2 Content 20.0 ML/dL (15-23) 01/07/18 18:51 ABG Base Excess 1.6 mmol/L (-2.0-3.0) 01/07/18 18:51 ABG Hemoglobin 15.7 g/dL (11.7-17.4) 01/07/18 18:51 ABG Carboxyhemoglobin 2.6 % (0.5-1.5) H 01/07/18 18:51 POC ABG HHb (Measured) 5.0 % (0.0-5.0) 01/07/18 18:51 ABG Methemoglobin 1.4 % (0.0-3.0) 01/07/18 18:51 ABG O2 Capacity 21.1 mL/dL (16-24) 01/07/18 18:51 William Test Yes 01/07/18 18:51 A-a O2 Difference 83.0 mm/Hg 01/07/18 18:51 Hgb O2 Saturation 91.0 % (95.0-98.0) L 01/07/18 18:51 FiO2 28.0 % 01/07/18 18:51 Sodium 138 mmol/l (132-148) 01/07/18 13:45 Potassium 4.2 MMOL/L (3.6-5.0) 01/07/18 13:45 Chloride 103 mmol/L (98-107) 01/07/18 13:45 Carbon Dioxide 24 mmol/L (22-30) 01/07/18 13:45 Anion Gap 15 (10-20) 01/07/18 13:45 BUN 15 mg/dl (9-20) 01/07/18 13:45 Creatinine 0.7 mg/dl (0.8-1.5) L 01/07/18 13:45 Est GFR ( Amer) > 60 01/07/18 13:45 Est GFR (Non-Af Amer) > 60 01/07/18 13:45 POC Glucose (mg/dL) 99 mg/dL (65-110) 01/07/18 17:50 Random Glucose 97 mg/dL (75-110) 01/07/18 13:45 Calcium 10.0 mg/dL (8.4-10.2) 01/07/18 13:45 Total Bilirubin 0.5 mg/dl (0.2-1.3) 01/07/18 13:45 AST 36 U/L (17-59) 01/07/18 13:45 ALT 34 U/L (21-72) 01/07/18 13:45 Alkaline Phosphatase 97 U/L (38-126) 01/07/18 13:45 Troponin I 0.0230 ng/mL (0.00-0.120) 01/07/18 13:45 NT-Pro-B Natriuret Pep 156 pg/ml (0-900) 01/07/18 13:45 Total Protein 7.5 G/DL (6.3-8.2) 01/07/18 13:45 Albumin 4.0 g/dL (3.5-5.0) 01/07/18 13:45 Globulin 3.5 gm/dL (2.2-3.9) 01/07/18 13:45 Albumin/Globulin Ratio 1.2 (1.0-2.1) 01/07/18 13:45 Urine Color Yellow (YELLOW) 01/07/18 19:15 Urine Clarity Slighty-cloudy (Clear) 01/07/18 19:15 Urine pH 6.0 (5.0-8.0) 01/07/18 19:15 Ur Specific [place] 1.014 (1.003-1.030) 01/07/18 19:15 Urine Protein Negative mg/dL (NEGATIVE) 01/07/18 19:15 Urine Glucose (UA) Neg mg/dL (Normal) 01/07/18 19:15 Urine Ketones 20 mg/dL (NEGATIVE) 01/07/18 19:15 Urine Blood Small (NEGATIVE) 01/07/18 19:15 Urine Nitrate Negative (NEGATIVE) 01/07/18 19:15 Urine Bilirubin Negative (NEGATIVE) 01/07/18 19:15 Urine Urobilinogen 0.2-1.0 mg/dL (0.2-1.0) 01/07/18 19:15 Ur Leukocyte Esterase Neg Dai/uL (Negative) 01/07/18 19:15 Urine RBC (Auto) 4 /hpf (0-3) H 01/07/18 19:15 Urine Microscopic WBC < 1 /hpf (0-5) 01/07/18 19:15 Ur Squamous Epith Cells < 1 /hpf (0-5) 01/07/18 19:15 Urine Bacteria Rare (<OCC) 01/07/18 19:15 Phenytoin 3.6 ug/ML (10-20) L 01/08/18 05:45 - Hospital Course Hospital Course: SOB CLINICALLY IMPROVED DIARRHEA RESOLVED Discharge Exam - Head Exam Head Exam: ATRAUMATIC, NORMAL INSPECTION, NORMOCEPHALIC - Eye Exam Additional comments: LEGALLY BLIND - GI/Abdominal Exam GI & Abdominal Exam: Normal Bowel Sounds - Rectal Exam Rectal Exam: NORMAL INSPECTION - Neurological Exam Neurological exam: Alert, CN II-XII Intact, Normal Gait, Oriented x3, Reflexes Normal - Psychiatric Exam Psychiatric exam: Normal Affect, Normal Mood - Skin Skin Exam: Dry, Intact, Normal Color, Warm Discharge Plan - Follow Up Plan Condition: STABLE Disposition: HOME/ ROUTINE Patient education suggested?: Yes Instructions: Exacerbation of COPD (DC) Referrals: Alex Davenport MD [Staff Provider] -
[2018-01-09 08:24] VITALS: BP 134/76; PULSE 89; RESP 19
[2018-01-09] MEDS: Fluticasone-Salmeterol 100-50mcg Diskus IH SCH (08:35)
[2018-01-09] MEDS: Enoxaparin 40 mg Syringe SC SCH (08:36)
[2018-01-09] MEDS: Dorzolamide 2% Ophth Soln OU SCH (08:38)
[2018-01-09] MEDS: Brimonidine 0.2% 50 DROP/5 ML BOTTLE OU SCH (08:39)
[2018-01-09] MEDS ORDERED: MethylPREDNISolone 40 mg Vial IVP SCH (09:00)
== END 2018-01-09 14:06 | disposition home or self-care (01) | DRG 88 ==
LOC: H.ER 12:25 → H.ERHOLD 16:17 → H.MEDSURG1 18:15
PROVIDERS: ADMIT Internal Medicine Pulmonary Disease; ATTEND Internal Medicine Pulmonary Disease
DX: J44.1 Chronic obstructive pulmonary disease with (acute) exacerbation (principal); I11.0 Hypertensive heart disease with heart failure; I50.9 Heart failure, unspecified; H54.8 Legal blindness, as defined in USA; E78.00 Pure hypercholesterolemia, unspecified; E78.5 Hyperlipidemia, unspecified; M19.90 Unspecified osteoarthritis, unspecified site; Z87.891 Personal history of nicotine dependence; R19.7 Diarrhea, unspecified; E11.9 Type 2 diabetes mellitus without complications; G40.909 Epilepsy, unspecified, not intractable, without status epilepticus

== ENCOUNTER 2018-01-29 14:37 | Inpatient (IN) | payer OTHER ==
[2018-01-29 14:42] VITALS: BMI 17.7
[2018-01-29] MEDS ORDERED: Propofol 10 mg/ml 1,000 MG/100 ML VIAL ONE (14:53)
[2018-01-29] MEDS ORDERED: Propofol 10 mg/ml Inj (20 ML) ONE (14:56)
[2018-01-29] MEDS ORDERED: Albuterol-Ipratrop 3 mg / 0.5 (3 ml) UD IH STA (14:57)
--- NOTE | 2018-01-29 15:00 | ED PDOC ---
HPI: SOB/CHF/COPD Time Seen by Provider: 01/29/18 14:55 Chief Complaint (Nursing): Respiratory Distress History Per: EMS Onset/Duration Of Symptoms: Days (1) Current Symptoms Are (Timing): Still Present Quality: Tightness Exacerbating Factor(s): Coughing Current Respiratory Medications: See Home Med List Severity: Severe Associated Symptoms: Productive Cough Additional Complaint(s): Brought by paramedics with onset of SOB assoc with cough productive thick green sputum since this AM. Denies fever or chest pain. Received Duonebs x 2 and Solumedrol 125 mg IV by paramedics with no improvent. Also placed on Bipap by paramedics with no improvement with pt appearing to tire. Pt intubted in ED due to failure of tx by paramedics and impending resp failure. Past Medical History Vital Signs: Last Vital Signs Temp 97.8 F 01/29/18 15:04 Pulse 85 01/29/18 15:04 Resp 19 01/29/18 15:04 BP 157/97 H 01/29/18 15:04 Pulse Ox 95 01/29/18 15:06 - Medical History PMH: Arthritis, CHF, COPD, Diabetes, HTN, Hypercholesterolemia, Pneumonia, Seizures Denies: HIV, Hypothyroidism, Chronic Kidney Disease, Rheumatoid Arthritis - Surgical History Surgical History: Appendectomy - Family History Family History: States: Unknown Family Hx - Immunization History Hx Tetanus Toxoid Vaccination: No Hx Influenza Vaccination: No Hx Pneumococcal Vaccination: No - Home Medications Home Medications: Ambulatory Orders Medication Instructions Recorded Albuterol Sulfate [Ventolin Hfa] 2 puff IH Q6 PRN 01/07/18 Aspirin [Ecotrin] 81 mg PO DAILY 01/07/18 Brimonidine 0.2% [Alphagan 0.2% 1 drop EACHEYE Q12 01/07/18 Opht] Dorzolamide 2%/Timolol 0.5% 1 drop EACHEYE Q12 01/07/18 [Cosopt 2%-0.5% Opht] Fluticasone/Vilanterol [Breo 1 puff IH DAILY 01/07/18 Ellipta 100-25 Mcg INH] Gabapentin [Neurontin] 300 mg PO HS 01/07/18 Latanoprost 0.005% Opht [Xalatan 1 drop EACHEYE HS 01/07/18 Opht] Melatonin 1 mg PO HS 01/07/18 Naproxen [Naprosyn] 500 mg PO Q12 PRN 01/07/18 Phenytoin, Extended [Dilantin] 100 mg PO Q12 01/07/18 Pilocarpine 1% Opht [Isopto 1 drop EACHEYE Q8 01/07/18 Carpine 1% Opht Soln] Ranitidine HCl [Zantac] 150 mg PO BID 01/07/18 Vitamin B Complex [Super B-50 1 cap PO DAILY 01/07/18 Complex] predniSONE [predniSONE Tab] 10 mg PO DAILY #10 tab 01/09/18 - Allergies Allergies/Adverse Reactions: Allergies Allergy/AdvReac Type Severity Reaction Status Date / Time No Known Allergies Allergy Verified 01/29/18 14:45 Review of Systems Review Of Systems: ROS cannot be obtained secondary to pt's inabilty to answer questions. Physical Exam - Reviewed Nursing Documentation Reviewed: Yes Vital Signs Reviewed: Yes - Physical Exam Appears: Positive for: Non-toxic, In Acute Distress Head Exam: Positive for: ATRAUMATIC, NORMAL INSPECTION, NORMOCEPHALIC Skin: Positive for: Normal Color, Warm, DRY Eye Exam: Positive for: EOMI, Normal appearance, PERRL ENT: Positive for: Normal ENT Inspection Neck: Positive for: Normal, Painless ROM Cardiovascular/Chest: Positive for: Regular Rate, Rhythm Respiratory: Positive for: Rhonchi, Wheezing, Respiratory Distress Gastrointestinal/Abdominal: Positive for: Normal Exam, Soft Back: Positive for: Normal Inspection Extremity: Positive for: Normal ROM Neurologic/Psych: Positive for: Alert, Oriented - ECG O2 Sat by Pulse Oximetry: 95 - Progress Re-evaluation Time: 15:14 Condition: Re-examined - Critical Care Total Time (In Min): 30 Disposition - Clinical Impression Clinical Impression: Respiratory failure, Pneumonia - Patient ED Disposition Is Patient to be Admitted: Yes - Disposition Disposition Time: 15:15 Condition: GUARDED Forms: [employer] (Indonesian) - Pt Status Changed To: Hospital Disposition Of: Inpatient - Admit Certification Admit to Inpatient:: After my assessment, the patient will require hospitalization for at least two midnights. This is because of the severity of symptoms shown, intensity of services needed, and/or the medical risk in this patient being treated as an outpatient. - POA Present On Arrival: None
[2018-01-29] MEDS ORDERED: Etomidate 20 mg/10ml Inj IV ONE ×2 (15:01→15:02)
[2018-01-29] MEDS ORDERED: Succinylcholine 200 mg/10 ml Inj IV ONE ×2 (15:02)
[2018-01-29] MEDS ORDERED: Propofol 10 mg/ml Inj (20 ML) IV ONE ×4 (15:02→15:59)
[2018-01-29] MEDS ORDERED: Piperacillin/Tazobact 3.375 GM in Sodium Chloride 0.9% 100 ML IVPB STA (15:04)
[2018-01-29] MEDS ORDERED: Sodium Chloride 0.9% 1,000 ML IV STA (15:04)
[2018-01-29] MEDS ORDERED: Albuterol-Ipratrop 3 mg / 0.5 (3 ml) UD ONE (15:07)
[2018-01-29 15:14] LABS: ABG ALLEN TEST YES; ARTERIAL BLOOD GAS HCO3 27.8 mmol/L (21-28); ARTERIAL BLOOD GAS O2 SAT 99.4 % (95-98); ARTERIAL BLOOD GAS PCO2 48 mm/Hg (35-45); ARTERIAL BLOOD GAS PO2 185 mm/Hg (80-100); ARTERIAL BLOOD GAS TCO2 31.2 mmol/L (22-28)
[2018-01-29 15:15] LABS: BASO # 0.2 K/uL (0.0-0.2); BASO % 1.5 % (0.0-2.0); EOS # 0.2 K/uL (0.0-0.7); HEMOGLOBIN 15.9 g/dL (12.0-18.0); LYMPH # 1.5 K/uL (1.0-4.3); LYMPH % 12.6 % (20.0-40.0); MEAN CELL VOLUME 93.4 fl (80.0-94.0); MEAN CORPUSCULAR HEMOGLOBIN 31.2 pg (27.0-31.0); MEAN CORPUSCULAR HGB CONC 33.4 g/dL (33.0-37.0); MEAN PLATELET VOLUME 10.2 fl (7.2-11.7); NEUT # 9.1 K/uL (1.8-7.0); NEUT % 75.9 % (50.0-75.0); RBC 5.09 Mil/uL (4.40-5.90); RED CELL DISTRIBUTION WIDTH 13.2 % (11.5-14.5); WHITE BLOOD COUNT 11.9 K/uL (4.8-10.8)
[2018-01-29] MEDS ORDERED: Propofol 10 mg/ml 1,000 MG/100 ML VIAL IV SCH (15:15)
[2018-01-29] MEDS ORDERED: Piperacillin/Tazobact 3.375 gm Inj IVPB ONE (15:17)
--- NOTE | 2018-01-29 15:25 | RAD ---
Date of service: 01/29/2018 HISTORY: dyspnea COMPARISON: 01/07/2018. InNo prior. FINDINGS: LUNGS: New right upper lobe infiltrate. PLEURA: No significant pleural effusion identified, no pneumothorax apparent. CARDIOVASCULAR: No radiographic findings to suggest acute or significant cardiovascular disease. OSSEOUS STRUCTURES: No significant abnormalities. VISUALIZED UPPER ABDOMEN: Normal. OTHER FINDINGS: Satisfactory position of endotracheal tube. A near tracheal tube tip 4.5 cm from the bekah. IMPRESSION: New alveolar consolidative change right upper lobe likely pneumonia.
[2018-01-29 15:30] LABS: ALB/GLOB RATIO 1.1 (1.0-2.1); ALBUMIN 3.8 g/dL (3.5-5.0); ALT/SGPT 27 U/L (21-72); AST/SGOT 48 U/L (17-59); BLOOD UREA NITROGEN 15 mg/dl (9-20); CALCIUM 9.7 mg/dL (8.4-10.2); GFR AFRICAN-AMERICAN > 60; GFR NON-AFRICAN AMERICAN > 60
[2018-01-29] MEDS ORDERED: Midazolam 50 MG in Dextrose 5% In Water 50 ML IV ONE (15:54)
[2018-01-29] MEDS ORDERED: Midazolam 2 MG/2 ML VIAL IV ONE (15:59)
[2018-01-29] MEDS ORDERED: Midazolam 2 MG/2 ML VIAL ONE (15:59)
[2018-01-29] MEDS ORDERED: Midazolam 50 MG in Sodium Chloride 0.9% 50 ML IV ONE (16:15)
--- NOTE | 2018-01-29 16:22 | ED PDOC ---
- Laboratory Results Result Diagrams: 01/29/18 15:00 01/29/18 15:00 - ECG O2 Sat by Pulse Oximetry: 95 (RA) Pulse Ox Interpretation: Normal Medical Decision Making Medical Decision Making: Time: 1600 Patient had been to be but nurse reported patient is agitated and trying to pull out ETT and so given Propofol 25mg. As per protocol, patient is awake and given Midazolam 4mg bolus. pt appears to not be responding well to propofal and is still agitated so will order versed drip. Scribe Attestation: Documented by Ericka Flores, acting as a scribe for Keron Izaguirre MD Provider Scribe Attestation: All medical record entries made by the Scribe were at my direction and personally dictated by me. I have reviewed the chart and agree that the record accurately reflects my personal performance of the history, physical exam, medical decision making, and the department course for this patient. I have also personally directed, reviewed, and agree with the discharge instructions and disposition. Disposition - Clinical Impression Clinical Impression: Respiratory failure, Pneumonia - POA Present On Arrival: None - Disposition Disposition: Admitted as In-Patient Disposition Time: 16:00 Condition: GUARDED
[2018-01-29] MEDS ORDERED: Albuterol-Ipratrop 3 mg / 0.5 (3 ml) UD INH PRN (16:27)
[2018-01-29] MEDS ORDERED: Vancomycin 1 g Inj ONE (16:36)
[2018-01-29] MEDS ORDERED: Morphine 4 MG/ML VIAL ONE (17:35)
[2018-01-29] MEDS ORDERED: Albuterol-Ipratrop 3 mg / 0.5 (3 ml) UD INH STA ×3 (17:48→18:07)
--- NOTE | 2018-01-29 17:59 | CP.CCUPN ---
CCU Subjective - Physician Review Subjective (Free Text): ICU Admission from ER for Acute Resp failure on MV: 72M with h/o CPD, emphysema, HTN, CHF, seizures, DM II; and possible pulm malignancy, brought in by EMS for resp distress, unresponsive to treatment en route with Duonebs, IV Steroids and BiPAP support, subsequently orally intubated in ER and placed on MV support, now sedated on Propofol infusion. Initial vitals noted, spo2 100% on 100% oxygen. Thick green sputum reported in HPI from ER MD. Other vitals and I/O's reviewed. No fever spikes nor any low grade temps noted ; HR 85, after sedation, BP 150/90. ROS: No other pertinent negs or positives on 10+ system review, patient sedated. PMSFH: All other Nursing and physician documentation reviewed to date; no new pertinent info noted relevant to current medical problems. Allergies: NKDA Home Meds: Ventolin HFA, ASA, Lipitor, Alphagan gtts, Timolol gtts, Breo, Spiriva, Gabapentin, MVI, Dilantin, Pilocarpine, VitB complex. EXAM- HEENT: no icterus, no gaze preference, Pupils 3 mm and equally reactive NECK: No JVD, supple, carotids equal upstroke bilat/no bruits CHEST: decreased BS bases, no wheezes audible HEART: regular, distant, tachy S1S2, no rubs or murmurs ABD: soft, no distention, no tympany, no palp tenderness, BS hypoactive EXT: No edema; no peripheral/ digital cyanosis, no calf tenderness or palpable cords, distal pulses intact and symmetrical. NEURO: moves all 4 limbs spontaneously SKIN: no rashes, warm and dry. LABS: 7.40/48/185 WBC= 11.9 HGB= 15.9 PLTs= 294K Mw=602 K= 4.9 OD=790 HCO3= 28 BUN/Cr= 15/0.7 BS= 122 Trop#1 negative EKG: sinus tachy 100/min, inverted P V1, normal axis CXR: increased interstitial markings RUL, and near RML/ RLL. Multiple nodules seen in MACY, L Hilar and R hilar regions. ETT position Ok above bekah. IMPRESSION / MAJOR PROBLEMS NOW: 1. Acute Hypoxemic Resp Failure 2 Multilobar Pneumonia, r/o Post-Obstructive PNA 2 Lung CA. 2. COPD exacerbation with Emphysema 3. DM II with Hyperglycemia PLAN: 1. MV support, check repeat ABGs, decrease FiO2 to lowest value, ensuring SPO2 at 92% or better. 2. IV steroids, Duonebs, and empiric abx coverage for hospital-acquired organisms due to recent hospitalization. Sputum C&S. 3. Consider CT Chest to further eval multiple Pulm nodules; Oncology eval. 4. Maintain BS range approx. 180 mg/dl. Check HGB A1c. 5. No known Advance Directives, full Code status for now. 6. See orders by Dr. Wilda Kumar. ADDENDUM: upon arrival to ICU, very agitated and sitting up in bed despite 4mg/ hr Versed infusion, does not appear diaphoretic nor in distress. Alert and oriented, following commands. Placed briefly on low level CPAP PS (5/5 and 40% oxygen) with SPO2 maintained at 100% and RR 16, no accessory mm use. Decision made to extubate patient an d placed on 40% CAM with stable spontaneous respiratory [pattern, no immediate stridor and SPO2 99%. c/o sore throat, but no drooling or upper airway rhonchi. To ensure present breathing efforts, additional Duonebs x 2 unit doses given prost extubation. Will monitor resp status and mental status closely over the next few hours for any need for re- intubation. Time spent with this patient did not overlap with any other provider's medical or critical care time. Additionally the code selected for the services rendered in this note includes the time spent: talking to the patients family, associated physicians and reviewing hospital data/results not listed here which extended to a total of 40 minutes.
--- NOTE | 2018-01-29 18:07 | PCM.PROC ---
Procedures Attestation:: I certify that I have explained the specified Operation(s) or Procedure(s), risks, benefits and reasonable alternatives to the Patient and/or other person responsible. The opportunity was given to ask questions and all questions answered - Extubation Clinical Parameters: Resolution/Stabilization of disease process, Hemodynamically Stable, Spontaneous Respirations, Acceptable Vent Settings (FIO2 <50%, PEEP<8, PaO2>75, pH>7.25) Weaning Criteria Met: Yes General Weaning Approaches: Pressure Support Ventilation (PSV) Weaning Patient Condition: Patient has been successfully extubated and assessed Oxygen Therapy: O2 via Venti Mask (40%) Patient Tolerated Procedure: Well
[2018-01-29] MEDS: Phenytoin 100 mg/4 ml Oral Susp UD GT SCH (18:36)
[2018-01-29] MEDS: Sodium Chloride 0.9% 1,000 ML IV SCH (20:37)
[2018-01-29] MEDS: MethylPREDNISolone 40 mg Vial IVP SCH (20:38)
[2018-01-29] MEDS: Enoxaparin 40 mg Syringe SC SCH (20:54)
[2018-01-29] MEDS ORDERED: methylPREDNISolone 40 MG in Sodium Chloride 0.9% 50 ML IVPB SCH (21:00)
[2018-01-29] MEDS: Piperacillin/Tazobact 4.5 GM in Sodium Chloride 0.9% 100 ML IVPB SCH (21:06)
--- NOTE | 2018-01-29 23:53 | CARD ---
APPROVED REPORT Date of service: 01/29/2018 <Conclusion> Normal sinus rhythm Biatrial enlargement Abnormal ECG
[2018-01-30] MEDS: Sodium Chloride 0.9% 1,000 ML IV SCH ×3 (04:33→16:53)
[2018-01-30] MEDS: Piperacillin/Tazobact 4.5 GM in Sodium Chloride 0.9% 100 ML IVPB SCH ×4 (04:33→21:22)
[2018-01-30] MEDS: MethylPREDNISolone 40 mg Vial IVP SCH ×3 (04:54→20:07)
[2018-01-30 05:30] LABS: BASO % 0.2 % (0.0-2.0); HEMOGLOBIN 14.6 g/dL (12.0-18.0); LYMPH # 1.6 K/uL (1.0-4.3); LYMPH % 11.1 % (20.0-40.0); MEAN CELL VOLUME 94.5 fl (80.0-94.0); MEAN CORPUSCULAR HEMOGLOBIN 30.8 pg (27.0-31.0); MEAN CORPUSCULAR HGB CONC 32.6 g/dL (33.0-37.0); MEAN PLATELET VOLUME 8.7 fl (7.2-11.7); MONO # 1.7 K/uL (0.0-0.8); MONO % 11.5 % (0.0-10.0); NEUT # 11.3 K/uL (1.8-7.0); NEUT % 77.2 % (50.0-75.0); RBC 4.73 Mil/uL (4.40-5.90); RED CELL DISTRIBUTION WIDTH 13.4 % (11.5-14.5); WHITE BLOOD COUNT 14.7 K/uL (4.8-10.8)
[2018-01-30 05:50] LABS: INR 1.2; PROTHROMBIN TIME 13.1 Seconds (9.8-13.1)
[2018-01-30 05:53] LABS: PARTIAL THROMBOPLASTIN TIME 31.2 Seconds (25.6-37.1)
[2018-01-30 07:20] LABS: ALB/GLOB RATIO 1.1 (1.0-2.1); ALBUMIN 3.4 g/dL (3.5-5.0); ALT/SGPT 34 U/L (21-72); AST/SGOT 35 U/L (17-59); BLOOD UREA NITROGEN 12 mg/dl (9-20); GFR AFRICAN-AMERICAN > 60; GFR NON-AFRICAN AMERICAN > 60
--- NOTE | 2018-01-30 08:19 | RAD ---
Date of service: 01/30/2018 PROCEDURE: CHEST RADIOGRAPH, 1 VIEW HISTORY: pna COMPARISON: Portable chest 03/20/2017. FINDINGS: LUNGS: Mixed alveolar and interstitial infiltrates are identified at the mid to inferior right lung zones with a small right pleural effusion present. Underlying lesion at the mid right lung remains difficult to exclude with a nodular density seen in this location in prior chest CT 03/29/2017. Consider follow-up chest CT for additional characterization. No left-sided infiltrate or pleural effusion. No pneumothorax bilaterally. PLEURA: As above. CARDIOVASCULAR: No cardiomegaly. No pulmonary vascular derangement grossly evident. Right hilum is somewhat obscured by infiltrate. OSSEOUS STRUCTURES: No significant abnormalities. VISUALIZED UPPER ABDOMEN: Normal. OTHER FINDINGS: None. IMPRESSION: Mixed alveolar and interstitial infiltrates are noted at the mid to inferior right lung zones with underlying lesion at the mid right lung not excluded. Small right pleural effusion. Follow-up chest CT advised.
[2018-01-30] MEDS: Enoxaparin 40 mg Syringe SC SCH (08:54)
[2018-01-30] MEDS: Phenytoin 100 mg/4 ml Oral Susp UD GT SCH ×2 (08:54→16:53)
[2018-01-30 10:33] LABS: ABG ALLEN TEST YES; ARTERIAL BLOOD GAS HCO3 23.5 mmol/L (21-28); ARTERIAL BLOOD GAS O2 SAT 96.7 % (95-98); ARTERIAL BLOOD GAS PCO2 57 mm/Hg (35-45); ARTERIAL BLOOD GAS PH 7.27 (7.35-7.45); ARTERIAL BLOOD GAS PO2 84 mm/Hg (80-100); ARTERIAL BLOOD GAS TCO2 27.9 mmol/L (22-28)
--- NOTE | 2018-01-30 15:11 | CP.CCUPN ---
<Sultan Stacy - Last Filed: 01/30/18 17:20> CCU Subjective - Physician Review Subjective (Free Text): 01/30/18 12:09 Patient seen and examined at bedside this morning. Pt is on high flow oxygen, with no significant distress. Reports shortness of breath when not in oxygen. Pt is tolerating po liquid. +BM/voiding. Denies chest pain, dizziness, nausea, vomiting, fever, chills. CCU Objective - Vital Signs / Intake & Output Vital Signs (Last 4 hours): Vital Signs Temp Pulse Resp BP Pulse Ox 01/30/18 14:00 91 H 27 H 131/70 99 01/30/18 12:59 18 01/30/18 12:00 97.9 F 90 29 H 143/94 H 96 Intake and Output (Last 8hrs): Intake & Output 01/30/18 01/30/18 01/30/18 06:59 14:59 22:59 Intake Total 1425 1470 Output Total 300 650 Balance 1125 820 Weight 44.906 kg Intake: IV 1075 1000 Intake, Piggyback 350 100 Oral 370 Output: Urine 300 650 Urethral (Ledezma) 300 650 Other: # Voids Urethral (Ledezma) 1 # Bowel Movements 1 1 - Physical Exam Physical Exam Limitations: Positive for: Other (thin appearing) Head: Positive for: Atraumatic Extroacular Muscles: Positive for: EOMI Conjunctiva: Positive for: Normal Mouth: Positive for: Moist Mucous Membranes Respiratory/Chest: Positive for: Rales (on right lower lung field. No wheezing.) Cardiovascular: Positive for: Regular Rate and Rhythm Abdomen: Positive for: Tenderness, Normal Bowel Sounds. Negative for: Distention, Peritoneal Signs Upper Extremity: Positive for: Normal Inspection, Normal ROM. Negative for: Edema Lower Extremity: Positive for: Normal Inspection, NORMAL PULSES. Negative for: Edema, CALF TENDERNESS Neurological: Positive for: CN II-XII Intact Skin: Positive for: Warm, Normal Color Psychiatric: Positive for: Alert, Oriented x 3 - Medications Active Medications: Active Medications Generic Name Dose Route Start Last Admin Trade Name Freq PRN Reason Stop Dose Admin Albuterol/Ipratropium 3 ml 01/29/18 16:27 Duoneb 3 Mg/0.5 Mg (3 Ml) Ud INH RQ4 PRN Shortness of Breath Enoxaparin Sodium 40 mg 01/29/18 20:00 01/30/18 08:54 Lovenox SC 40 mg DAILY HENRY Administration Protocol Piperacillin Sod/Tazobactam 100 mls @ 100 mls/hr 01/29/18 22:00 01/30/18 11: 49 Sod 4.5 gm/ Sodium Chloride IVPB 02/04/18 23:59 100 mls/hr Q6 HENRY Administration Protocol Vancomycin HCl 1 gm/ Sodium 250 mls @ 166.667 mls/hr 01/30/18 04:30 01/30/18 04:34 Chloride IVPB 166.667 mls/hr Q12@0430,1630 HENRY Administration Protocol Sodium Chloride 1,000 mls @ 125 mls/hr 01/29/18 23:00 01/30/18 08:56 Sodium Chloride 0.9% IV 01/30/18 18:10 125 mls/hr .Q8H HENRY Administration Methylprednisolone 40 mg 01/29/18 21:00 01/30/18 13:23 Solu-Medrol IVP 40 mg Q8H HENRY Administration Pantoprazole Sodium 40 mg 01/30/18 09:00 01/30/18 08:55 Protonix Inj IVP 40 mg DAILY HENRY Administration Phenytoin 200 mg 01/29/18 17:00 01/30/18 08:54 Dilantin GT 200 mg BID HENRY Administration - Patient Studies Lab Studies: Microbiology Studies 01/29/18 15:00 Blood Culture - Preliminary Blood-Venous NO GROWTH AFTER 24 HOURS Lab Studies 01/30/18 01/30/18 01/30/18 Range/Units 10:24 07:25 07:00 WBC (4.8-10.8) K/uL RBC (4.40-5.90) Mil/uL Hgb (12.0-18.0) g/dL Hct (35.0-51.0) % MCV (80.0-94.0) fl MCH (27.0-31.0) pg MCHC (33.0-37.0) g/dL RDW (11.5-14.5) % Plt Count (130-400) K/uL MPV (7.2-11.7) fl Neut % (Auto) (50.0-75.0) % Lymph % (Auto) (20.0-40.0) % Winston % (Auto) (0.0-10.0) % Eos % (Auto) (0.0-4.0) % Baso % (Auto) (0.0-2.0) % Neut # (Auto) (1.8-7.0) K/uL Lymph # (Auto) (1.0-4.3) K/uL Winston # (Auto) (0.0-0.8) K/uL Eos # (Auto) (0.0-0.7) K/uL Baso # (Auto) (0.0-0.2) K/uL PT (9.8-13.1) Seconds INR APTT (25.6-37.1) Seconds pCO2 57 H (35-45) mm/Hg pO2 84 (80-100) mm/Hg HCO3 23.5 (21-28) mmol/L ABG pH 7.27 L (7.35-7.45) ABG Total CO2 27.9 (22-28) mmol/L ABG O2 Saturation 96.7 (95-98) % ABG Base Excess -1.7 (-2.0-3.0) mmol/L William Test Yes ABG Potassium 3.9 (3.6-5.2) mmol/L A-a O2 Difference 101.0 mm/Hg Sodium 135.0 (132-148) mmol/L Chloride 103.0 (98-107) mmol/L Glucose 231 H (75-110) mg/dL Lactate 2.9 H (0.7-2.1) mmol/L Vent Mode 4lnc Mechanical Rate FiO2 36.0 % Tidal Volume PEEP Crit Value Called To Ryan morales Crit Value Called By Carole schroeder Crit Value Read Back Y Blood Gas Notified Time 1032 Potassium (3.6-5.0) MMOL/L Carbon Dioxide (22-30) mmol/L Anion Gap (10-20) BUN (9-20) mg/dl Creatinine (0.8-1.5) mg/dl Est GFR ( Amer) Est GFR (Non-Af Amer) POC Glucose (mg/dL) (65-110) mg/dL Random Glucose (75-110) mg/dL Calcium (8.4-10.2) mg/dL Total Bilirubin (0.2-1.3) mg/dl AST (17-59) U/L ALT (21-72) U/L Alkaline Phosphatase (38-126) U/L Troponin I 0.0470 (0.00-0.120) ng/mL Total Protein (6.3-8.2) G/DL Albumin (3.5-5.0) g/dL Globulin (2.2-3.9) gm/dL Albumin/Globulin Ratio (1.0-2.1) Arterial Blood Potassium 3.9 (3.6-5.2) mmol/L Phenytoin 6.8 L (10-20) ug/ML 01/30/18 01/30/18 01/30/18 Range/Units 04:30 04:30 04:30 WBC 14.7 H (4.8-10.8) K/uL RBC 4.73 (4.40-5.90) Mil/uL Hgb 14.6 (12.0-18.0) g/dL Hct 44.7 (35.0-51.0) % MCV 94.5 H (80.0-94.0) fl MCH 30.8 (27.0-31.0) pg MCHC 32.6 L (33.0-37.0) g/dL RDW 13.4 (11.5-14.5) % Plt Count 233 (130-400) K/uL MPV 8.7 (7.2-11.7) fl Neut % (Auto) 77.2 H (50.0-75.0) % Lymph % (Auto) 11.1 L (20.0-40.0) % Winston % (Auto) 11.5 H (0.0-10.0) % Eos % (Auto) 0.0 (0.0-4.0) % Baso % (Auto) 0.2 (0.0-2.0) % Neut # (Auto) 11.3 H (1.8-7.0) K/uL Lymph # (Auto) 1.6 (1.0-4.3) K/uL Winston # (Auto) 1.7 H (0.0-0.8) K/uL Eos # (Auto) 0.0 (0.0-0.7) K/uL Baso # (Auto) 0.0 (0.0-0.2) K/uL PT 13.1 (9.8-13.1) Seconds INR 1.2 APTT 31.2 (25.6-37.1) Seconds pCO2 (35-45) mm/Hg pO2 (80-100) mm/Hg HCO3 (21-28) mmol/L ABG pH (7.35-7.45) ABG Total CO2 (22-28) mmol/L ABG O2 Saturation (95-98) % ABG Base Excess (-2.0-3.0) mmol/L William Test ABG Potassium (3.6-5.2) mmol/L A-a O2 Difference mm/Hg Sodium 143 (132-148) mmol/L Chloride 105 (98-107) mmol/L Glucose (75-110) mg/dL Lactate (0.7-2.1) mmol/L Vent Mode Mechanical Rate FiO2 % Tidal Volume PEEP Crit Value Called To Crit Value Called By Crit Value Read Back Blood Gas Notified Time Potassium 4.6 (3.6-5.0) MMOL/L Carbon Dioxide 32 H (22-30) mmol/L Anion Gap 11 (10-20) BUN 12 (9-20) mg/dl Creatinine 0.7 L (0.8-1.5) mg/dl Est GFR ( Amer) > 60 Est GFR (Non-Af Amer) > 60 POC Glucose (mg/dL) (65-110) mg/dL Random Glucose 103 (75-110) mg/dL Calcium 9.0 (8.4-10.2) mg/dL Total Bilirubin 0.5 (0.2-1.3) mg/dl AST 35 (17-59) U/L ALT 34 (21-72) U/L Alkaline Phosphatase 91 (38-126) U/L Troponin I (0.00-0.120) ng/mL Total Protein 6.5 (6.3-8.2) G/DL Albumin 3.4 L (3.5-5.0) g/dL Globulin 3.1 (2.2-3.9) gm/dL Albumin/Globulin Ratio 1.1 (1.0-2.1) Arterial Blood Potassium (3.6-5.2) mmol/L Phenytoin (10-20) ug/ML 01/29/18 01/29/18 01/29/18 Range/Units 23:45 15:00 15:00 WBC 11.9 H (4.8-10.8) K/uL RBC 5.09 (4.40-5.90) Mil/uL Hgb 15.9 (12.0-18.0) g/dL Hct 47.5 (35.0-51.0) % MCV 93.4 (80.0-94.0) fl MCH 31.2 H (27.0-31.0) pg MCHC 33.4 (33.0-37.0) g/dL RDW 13.2 (11.5-14.5) % Plt Count 294 (130-400) K/uL MPV 10.2 (7.2-11.7) fl Neut % (Auto) 75.9 H (50.0-75.0) % Lymph % (Auto) 12.6 L (20.0-40.0) % Winston % (Auto) 8.0 (0.0-10.0) % Eos % (Auto) 2.0 (0.0-4.0) % Baso % (Auto) 1.5 (0.0-2.0) % Neut # (Auto) 9.1 H (1.8-7.0) K/uL Lymph # (Auto) 1.5 (1.0-4.3) K/uL Winston # (Auto) 1.0 H (0.0-0.8) K/uL Eos # (Auto) 0.2 (0.0-0.7) K/uL Baso # (Auto) 0.2 (0.0-0.2) K/uL PT (9.8-13.1) Seconds INR APTT (25.6-37.1) Seconds pCO2 (35-45) mm/Hg pO2 (80-100) mm/Hg HCO3 (21-28) mmol/L ABG pH (7.35-7.45) ABG Total CO2 (22-28) mmol/L ABG O2 Saturation (95-98) % ABG Base Excess (-2.0-3.0) mmol/L William Test ABG Potassium (3.6-5.2) mmol/L A-a O2 Difference mm/Hg Sodium 141 (132-148) mmol/L Chloride 105 (98-107) mmol/L Glucose (75-110) mg/dL Lactate (0.7-2.1) mmol/L Vent Mode Mechanical Rate FiO2 % Tidal Volume PEEP Crit Value Called To Crit Value Called By Crit Value Read Back Blood Gas Notified Time Potassium 4.9 (3.6-5.0) MMOL/L Carbon Dioxide 28 (22-30) mmol/L Anion Gap 13 (10-20) BUN 15 (9-20) mg/dl Creatinine 0.7 L (0.8-1.5) mg/dl Est GFR ( Amer) > 60 Est GFR (Non-Af Amer) > 60 POC Glucose (mg/dL) (65-110) mg/dL Random Glucose 122 H (75-110) mg/dL Calcium 9.7 (8.4-10.2) mg/dL Total Bilirubin 0.6 (0.2-1.3) mg/dl AST 48 (17-59) U/L ALT 27 (21-72) U/L Alkaline Phosphatase 106 (38-126) U/L Troponin I 0.0530 0.0580 (0.00-0.120) ng/mL Total Protein 7.3 (6.3-8.2) G/DL Albumin 3.8 (3.5-5.0) g/dL Globulin 3.6 (2.2-3.9) gm/dL Albumin/Globulin Ratio 1.1 (1.0-2.1) Arterial Blood Potassium (3.6-5.2) mmol/L Phenytoin (10-20) ug/ML 01/29/18 01/29/18 Range/Units 14:56 14:51 WBC (4.8-10.8) K/uL RBC (4.40-5.90) Mil/uL Hgb (12.0-18.0) g/dL Hct (35.0-51.0) % MCV (80.0-94.0) fl MCH (27.0-31.0) pg MCHC (33.0-37.0) g/dL RDW (11.5-14.5) % Plt Count (130-400) K/uL MPV (7.2-11.7) fl Neut % (Auto) (50.0-75.0) % Lymph % (Auto) (20.0-40.0) % Winston % (Auto) (0.0-10.0) % Eos % (Auto) (0.0-4.0) % Baso % (Auto) (0.0-2.0) % Neut # (Auto) (1.8-7.0) K/uL Lymph # (Auto) (1.0-4.3) K/uL Winston # (Auto) (0.0-0.8) K/uL Eos # (Auto) (0.0-0.7) K/uL Baso # (Auto) (0.0-0.2) K/uL PT (9.8-13.1) Seconds INR APTT (25.6-37.1) Seconds pCO2 48 H (35-45) mm/Hg pO2 185 H (80-100) mm/Hg HCO3 27.8 (21-28) mmol/L ABG pH 7.40 (7.35-7.45) ABG Total CO2 31.2 H (22-28) mmol/L ABG O2 Saturation 99.4 H (95-98) % ABG Base Excess 3.8 H (-2.0-3.0) mmol/L William Test Yes ABG Potassium 4.3 (3.6-5.2) mmol/L A-a O2 Difference 468.0 mm/Hg Sodium 137.0 (132-148) mmol/L Chloride 103.0 (98-107) mmol/L Glucose 133 H (75-110) mg/dL Lactate 1.0 (0.7-2.1) mmol/L Vent Mode Prvc/ac Mechanical Rate 12 FiO2 100.0 % Tidal Volume 500 PEEP 5 Crit Value Called To Crit Value Called By Crit Value Read Back Blood Gas Notified Time Potassium (3.6-5.0) MMOL/L Carbon Dioxide (22-30) mmol/L Anion Gap (10-20) BUN (9-20) mg/dl Creatinine (0.8-1.5) mg/dl Est GFR ( Amer) Est GFR (Non-Af Amer) POC Glucose (mg/dL) 111 H (65-110) mg/dL Random Glucose (75-110) mg/dL Calcium (8.4-10.2) mg/dL Total Bilirubin (0.2-1.3) mg/dl AST (17-59) U/L ALT (21-72) U/L Alkaline Phosphatase (38-126) U/L Troponin I (0.00-0.120) ng/mL Total Protein (6.3-8.2) G/DL Albumin (3.5-5.0) g/dL Globulin (2.2-3.9) gm/dL Albumin/Globulin Ratio (1.0-2.1) Arterial Blood Potassium 4.3 (3.6-5.2) mmol/L Phenytoin (10-20) ug/ML Laboratory Results - last 24 hr 01/29/18 01/29/18 01/29/18 14:51 14:56 15:00 WBC 11.9 H RBC 5.09 Hgb 15.9 Hct 47.5 MCV 93.4 MCH 31.2 H MCHC 33.4 RDW 13.2 Plt Count 294 MPV 10.2 Neut % (Auto) 75.9 H Lymph % (Auto) 12.6 L Winston % (Auto) 8.0 Eos % (Auto) 2.0 Baso % (Auto) 1.5 Neut # (Auto) 9.1 H Lymph # (Auto) 1.5 Winston # (Auto) 1.0 H Eos # (Auto) 0.2 Baso # (Auto) 0.2 PT INR APTT pCO2 48 H pO2 185 H HCO3 27.8 ABG pH 7.40 ABG Total CO2 31.2 H ABG O2 Saturation 99.4 H ABG Base Excess 3.8 H William Test Yes ABG Potassium 4.3 A-a O2 Difference 468.0 Sodium 137.0 Chloride 103.0 Glucose 133 H Lactate 1.0 Vent Mode Prvc/ac Mechanical Rate 12 FiO2 100.0 Tidal Volume 500 PEEP 5 Crit Value Called To Crit Value Called By Crit Value Read Back Blood Gas Notified Time Potassium Carbon Dioxide Anion Gap BUN Creatinine Est GFR ( Amer) Est GFR (Non-Af Amer) POC Glucose (mg/dL) 111 H Random Glucose Calcium Total Bilirubin AST ALT Alkaline Phosphatase Troponin I Total Protein Albumin Globulin Albumin/Globulin Ratio Arterial Blood Potassium 4.3 Phenytoin 08/01/18 08/01/18 08/02/18 15:00 23:45 04:30 WBC 14.7 H RBC 4.73 Hgb 14.6 Hct 44.7 MCV 94.5 H MCH 30.8 MCHC 32.6 L RDW 13.4 Plt Count 233 MPV 8.7 Neut % (Auto) 77.2 H Lymph % (Auto) 11.1 L Winston % (Auto) 11.5 H Eos % (Auto) 0.0 Baso % (Auto) 0.2 Neut # (Auto) 11.3 H Lymph # (Auto) 1.6 Winston # (Auto) 1.7 H Eos # (Auto) 0.0 Baso # (Auto) 0.0 PT INR APTT pCO2 pO2 HCO3 ABG pH ABG Total CO2 ABG O2 Saturation ABG Base Excess William Test ABG Potassium A-a O2 Difference Sodium 141 Chloride 105 Glucose Lactate Vent Mode Mechanical Rate FiO2 Tidal Volume PEEP Crit Value Called To Crit Value Called By Crit Value Read Back Blood Gas Notified Time Potassium 4.9 Carbon Dioxide 28 Anion Gap 13 BUN 15 Creatinine 0.7 L Est GFR ( Amer) > 60 Est GFR (Non-Af Amer) > 60 POC Glucose (mg/dL) Random Glucose 122 H Calcium 9.7 Total Bilirubin 0.6 AST 48 ALT 27 Alkaline Phosphatase 106 Troponin I 0.0580 0.0530 Total Protein 7.3 Albumin 3.8 Globulin 3.6 Albumin/Globulin Ratio 1.1 Arterial Blood Potassium Phenytoin 01/30/18 01/30/18 01/30/18 04:30 04:30 07:00 WBC RBC Hgb Hct MCV MCH MCHC RDW Plt Count MPV Neut % (Auto) Lymph % (Auto) Winston % (Auto) Eos % (Auto) Baso % (Auto) Neut # (Auto) Lymph # (Auto) Winston # (Auto) Eos # (Auto) Baso # (Auto) PT 13.1 INR 1.2 APTT 31.2 pCO2 pO2 HCO3 ABG pH ABG Total CO2 ABG O2 Saturation ABG Base Excess William Test ABG Potassium A-a O2 Difference Sodium 143 Chloride 105 Glucose Lactate Vent Mode Mechanical Rate FiO2 Tidal Volume PEEP Crit Value Called To Crit Value Called By Crit Value Read Back Blood Gas Notified Time Potassium 4.6 Carbon Dioxide 32 H Anion Gap 11 BUN 12 Creatinine 0.7 L Est GFR ( Amer) > 60 Est GFR (Non-Af Amer) > 60 POC Glucose (mg/dL) Random Glucose 103 Calcium 9.0 Total Bilirubin 0.5 AST 35 ALT 34 Alkaline Phosphatase 91 Troponin I Total Protein 6.5 Albumin 3.4 L Globulin 3.1 Albumin/Globulin Ratio 1.1 Arterial Blood Potassium Phenytoin 6.8 L 01/30/18 01/30/18 07:25 10:24 WBC RBC Hgb Hct MCV MCH MCHC RDW Plt Count MPV Neut % (Auto) Lymph % (Auto) Winston % (Auto) Eos % (Auto) Baso % (Auto) Neut # (Auto) Lymph # (Auto) Winston # (Auto) Eos # (Auto) Baso # (Auto) PT INR APTT pCO2 57 H pO2 84 HCO3 23.5 ABG pH 7.27 L ABG Total CO2 27.9 ABG O2 Saturation 96.7 ABG Base Excess -1.7 William Test Yes ABG Potassium 3.9 A-a O2 Difference 101.0 Sodium 135.0 Chloride 103.0 Glucose 231 H Lactate 2.9 H Vent Mode 4lnc Mechanical Rate FiO2 36.0 Tidal Volume PEEP Crit Value Called To Ryan morales Crit Value Called By Carole brooks Crit Value Read Back Y Blood Gas Notified Time 1032 Potassium Carbon Dioxide Anion Gap BUN Creatinine Est GFR ( Amer) Est GFR (Non-Af Amer) POC Glucose (mg/dL) Random Glucose Calcium Total Bilirubin AST ALT Alkaline Phosphatase Troponin I 0.0470 Total Protein Albumin Globulin Albumin/Globulin Ratio Arterial Blood Potassium 3.9 Phenytoin EKG/Cardiology Studies: Cardiology / EKG Studies 01/29/18 14:55 ELECTROCARDIOGRAM Stat Comment: Mode Of Transportation: Reason For Exam: SOB 01/30/18 09:00 ELECTROCARDIOGRAM DAILY Comment: Mode Of Transportation: Reason For Exam: PNA Fingerstick Blood Sugar Results: 111 Review of Systems - Review of Systems All systems: reviewed and no additional remarkable complaints except Critical Care Progress Note - Nutrition Nutrition: Nutrition Category Date Time Status Liquid Diet [DIET] Diets 01/29/18 Dinner Active Assessment/Plan - Assessment and Plan (Free Text) Assessment: 72 yo male with pmhx COPD, emphysema, HTN, CHF, seizures, DM II; and possible pulm malignancy admitted to ICU on 01/29/18 for acute respiratry failure s/p intubation and extubation yesterday, currently on high flow, saturating well. Plan: Acute Respiratory failure s/p intubation and extubation yesterday -Likely secondary to PNA, r/o Post-Obstructive PNA 2 Lung CA. -Currently on high flow oxygen (40% fio2 and 30 L oxygen), pt refused BIPAP -Repeat CXR shows mixed alveolar and interstitial infiltrates are noted at the mid to inferior right lung zones with underlying lesion at the mid right lung not excluded. Small right pleural effusion. Hospital-acquired pneumonia -wbc 14.7 -afebrile with stable BP -Continue with Vancomycin 1 gm ivp q12 ( day 2) -Continue with Zosyn 4.5 gm ivp q6 hr ( day 2) -Continue with solumedrol 40 mg IVP q8hr (day 2) -continue with Duoneb q4hr prn History of Seizure -Continue with dilantin Diabetes Mellitus II -controlled -Monitor blood glucose DVT prophylasix: lovenox 40 mg sc daily GI prophylaxis: Protonix 40 mg IVP daily Diet: liquid, advance as tolerated Code status: full code <Kyle Farias - Last Filed: 01/30/18 17:43> CCU Subjective - Physician Review Subjective (Free Text): Attestation: Patient seen and examined at the bedside with Resident Dr. Wilda Kumar; and I agree with his outline of plans and management documented below as discussed on AM rounds reflecting my review of all applicable clinical data, and participation in the care of the patient throughout the day in ICU; today, January 30, 2018. Critical Care Progress Note - Nutrition Nutrition: Nutrition Category Date Time Status Liquid Diet [DIET] Diets 01/29/18 Dinner Active
--- NOTE | 2018-01-30 20:41 | HP ---
Copied To: Alex Davenport MD Attending MD: Alex Davenport MD HISTORY OF PRESENT ILLNESS: Mr. Dorado is a 72-year-old male, who was admitted from the emergency room and intubated, placed on a respirator because of acute respiratory failure. He has a history of chronic obstructive pulmonary disease, hypertension, congestive heart failure, diabetes mellitus. Otherwise, not much more history is obtained. He was admitted by wa. His last admission was for chronic obstructive pulmonary disease and legally blind. The patient is presently extubated and off the ventilator. He is awake, alert, and somewhat oriented. PHYSICAL EXAMINATION: VITAL SIGNS: Stable. HEENT: Mouth shows fair hygiene. LUNGS: Poor aeration bilateral. Scattered bilateral rales. HEART: S1, S2. ABDOMEN: Soft, nontender. No organomegaly. EXTREMITIES: Shows no edema or cyanosis. CENTRAL NERVOUS SYSTEM: The patient is legally blind, otherwise, unremarkable. LABORATORY DATA: Reviewed. IMPRESSION: Acute respiratory failure, hypercapnic with hypoxemia secondary to acute exacerbation of chronic obstructive pulmonary disease with superimposed pneumonia; diabetes mellitus with hyperglycemia; legal blindness; history of congestive heart failure chronic with diastolic dysfunction; history of hypertension; history of diabetes mellitus. PLAN: Intravenous antibiotics as well as bronchodilators. Continue oxygen therapy. Further therapy will depend on findings. Alex Davenport MD
[2018-01-31] MEDS: Piperacillin/Tazobact 4.5 GM in Sodium Chloride 0.9% 100 ML IVPB SCH ×4 (03:22→21:09)
[2018-01-31] MEDS: MethylPREDNISolone 40 mg Vial IVP SCH ×3 (05:02→21:09)
[2018-01-31 05:33] LABS: HEMOGLOBIN 15.3 g/dL (12.0-18.0); MEAN CELL VOLUME 95.8 fl (80.0-94.0); MEAN CORPUSCULAR HEMOGLOBIN 31.1 pg (27.0-31.0); MEAN CORPUSCULAR HGB CONC 32.5 g/dL (33.0-37.0); RBC 4.92 Mil/uL (4.40-5.90); RED CELL DISTRIBUTION WIDTH 13.7 % (11.5-14.5); WHITE BLOOD COUNT 14.6 K/uL (4.8-10.8)
[2018-01-31 05:46] LABS: BLOOD UREA NITROGEN 9 mg/dl (9-20); GFR AFRICAN-AMERICAN > 60; GFR NON-AFRICAN AMERICAN > 60
[2018-01-31] MEDS: Phenytoin 100 mg/4 ml Oral Susp UD GT SCH ×2 (08:56→16:42)
[2018-01-31] MEDS: Enoxaparin 40 mg Syringe SC SCH (08:56)
--- NOTE | 2018-01-31 11:02 | CP.CCUPN ---
<Sultan Stacy - Last Filed: 01/31/18 16:33> CCU Subjective - Physician Review Subjective (Free Text): 01/31/18 11:02 Patient seen and examined with Dr. Farias during rounds. No acute overnight events. Pt is on high flow O2, saturating well and not in acute distress. Pt is able to have conversate without distress and tachypnea has improved. Pt is tolerating po liquid. +BM/voiding. Denies chest pain, dyspnea, dizziness, nausea ,vomiting, fever, chills. CCU Objective - Vital Signs / Intake & Output Vital Signs (Last 4 hours): Vital Signs Temp Pulse Resp BP Pulse Ox 01/31/18 10:00 92 H 19 141/88 96 01/31/18 08:25 16 01/31/18 07:44 97.9 F 99 H 18 151/87 H 94 L Intake and Output (Last 8hrs): Intake & Output 01/30/18 01/31/18 01/31/18 22:59 06:59 14:59 Intake Total 650 1725 700 Output Total 450 1050 100 Balance 200 675 600 Weight 46.72 kg Intake: IV 500 1325 500 Intake, Piggyback 100 350 100 Oral 50 50 100 Output: Urine 450 1050 100 Urethral (Ledezma) 450 650 Urine, Voided 400 100 Other: # Voids Urethral (Ledezma) 1 1 Urine, Voided 1 # Bowel Movements 0 1 - Physical Exam Head: Positive for: Atraumatic Extroacular Muscles: Positive for: EOMI Conjunctiva: Positive for: Normal Mouth: Positive for: Moist Mucous Membranes Neck: Positive for: Normal Range of Motion Respiratory/Chest: Positive for: Rales (on right lower lung field. Prolong expiratory phase. No wheezing.) Cardiovascular: Positive for: Regular Rate and Rhythm Abdomen: Positive for: Tenderness, Normal Bowel Sounds. Negative for: Distention, Peritoneal Signs Upper Extremity: Positive for: Normal Inspection, Normal ROM. Negative for: Edema Lower Extremity: Positive for: Normal Inspection, NORMAL PULSES. Negative for: Edema, CALF TENDERNESS Neurological: Positive for: CN II-XII Intact Skin: Positive for: Warm, Normal Color Psychiatric: Positive for: Alert, Oriented x 3 - Medications Active Medications: Active Medications Generic Name Dose Route Start Last Admin Trade Name Freq PRN Reason Stop Dose Admin Albuterol/Ipratropium 3 ml 01/29/18 16:27 Duoneb 3 Mg/0.5 Mg (3 Ml) Ud INH RQ4 PRN Shortness of Breath Enoxaparin Sodium 40 mg 01/29/18 20:00 01/31/18 08:56 Lovenox SC 40 mg DAILY HENRY Administration Protocol Piperacillin Sod/Tazobactam 100 mls @ 100 mls/hr 01/29/18 22:00 01/31/18 09: 00 Sod 4.5 gm/ Sodium Chloride IVPB 02/04/18 23:59 100 mls/hr Q6 HENRY Administration Protocol Vancomycin HCl 1 gm/ Sodium 250 mls @ 166.667 mls/hr 01/30/18 04:30 01/31/18 03:30 Chloride IVPB 166.667 mls/hr Q12@0430,1630 HENRY Administration Protocol Methylprednisolone 40 mg 01/29/18 21:00 01/31/18 05:02 Solu-Medrol IVP 40 mg Q8H HENRY Administration Pantoprazole Sodium 40 mg 01/30/18 09:00 01/31/18 08:57 Protonix Inj IVP 40 mg DAILY HENRY Administration Phenytoin 200 mg 01/29/18 17:00 01/31/18 08:56 Dilantin GT 200 mg BID HENRY Administration - Patient Studies Lab Studies: Microbiology Studies 01/29/18 10:47 Gram Stain - Final Sputum 01/29/18 15:00 Blood Culture - Preliminary Blood-Venous NO GROWTH AFTER 24 HOURS Lab Studies 01/31/18 01/31/18 Range/Units 05:23 05:23 WBC 14.6 H (4.8-10.8) K/uL RBC 4.92 (4.40-5.90) Mil/uL Hgb 15.3 (12.0-18.0) g/dL Hct 47.1 (35.0-51.0) % MCV 95.8 H (80.0-94.0) fl MCH 31.1 H (27.0-31.0) pg MCHC 32.5 L (33.0-37.0) g/dL RDW 13.7 (11.5-14.5) % Plt Count 261 (130-400) K/uL Sodium 142 (132-148) mmol/l Potassium 4.2 (3.6-5.0) MMOL/L Chloride 104 (98-107) mmol/L Carbon Dioxide 30 (22-30) mmol/L Anion Gap 12 (10-20) BUN 9 (9-20) mg/dl Creatinine 0.7 L (0.8-1.5) mg/dl Est GFR ( Amer) > 60 Est GFR (Non-Af Amer) > 60 Random Glucose 112 H (75-110) mg/dL Calcium 9.0 (8.4-10.2) mg/dL Laboratory Results - last 24 hr 01/31/18 01/31/18 05:23 05:23 WBC 14.6 H RBC 4.92 Hgb 15.3 Hct 47.1 MCV 95.8 H MCH 31.1 H MCHC 32.5 L RDW 13.7 Plt Count 261 Sodium 142 Potassium 4.2 Chloride 104 Carbon Dioxide 30 Anion Gap 12 BUN 9 Creatinine 0.7 L Est GFR ( Amer) > 60 Est GFR (Non-Af Amer) > 60 Random Glucose 112 H Calcium 9.0 Fingerstick Blood Sugar Results: 111 Review of Systems - Review of Systems All systems: reviewed and no additional remarkable complaints except Critical Care Progress Note - Nutrition Nutrition: Nutrition Category Date Time Status Consistent Carbohydrate [DIET] Diets 01/31/18 Dinner Active Assessment/Plan - Assessment and Plan (Free Text) Assessment: 72 yo male with pmhx COPD, emphysema, HTN, CHF, seizures, DM II; and possible pulm malignancy admitted to ICU on 01/29/18 for acute respiratory failure s/p intubation and extubation on 01/30/18. Pt tolerated high flow oxygen with 40% FiO2 and 30 L oxygen and was averted the need for re-intubation. Now, on 5 L NC with humidified air, not in acute distress. Plan: Acute Respiratory failure s/p intubation and extubation on 01/29/18 -Likely secondary to PNA and COPD exacerbation, r/o Post-Obstructive PNA 2 Lung CA. -Currently on NC oxygen with humidified air, saturating >95% -If continues to tolerate NC, pt can be further managed in Telemetry unit. Hospital-acquired pneumonia --CXR on 01/30/18 shows mixed alveolar and interstitial infiltrates are noted at the mid to inferior right lung zones with underlying lesion at the mid right lung not excluded. Small right pleural effusion. -Wbc 14.6 -Afebrile with stable BP -Continue with Vancomycin 1 gm ivp q12 ( day 3) -Continue with Zosyn 4.5 gm ivp q6 hr ( day 3) -Continue with solumedrol 40 mg IVP q8hr (day 3) -continue with Duoneb q4hr prn -Sputum cx shows gram negative rafael COPD exacerbation -Continue with current management History of Seizure -Continue with dilantin Diabetes Mellitus II -controlled -Monitor blood glucose DVT prophylasix: lovenox 40 mg sc daily GI prophylaxis: Protonix 40 mg IVP daily Diet: heart healthy DM diet Code status: full code <Kyle Farias - Last Filed: 01/31/18 23:34> CCU Subjective - Physician Review Subjective (Free Text): Attestation: Patient seen and examined at the bedside with Resident Dr. Wilda Kumar; and I agree with his outline of plans and management documented below as discussed on AM rounds reflecting my review of all applicable clinical data, and participation in the care of the patient throughout the day in ICU; today, January 31, 2018. .
--- NOTE | 2018-01-31 13:10 | CP.PCM.PN ---
Subjective - Date & Time of Evaluation Date of Evaluation: 01/31/18 Time of Evaluation: 13:10 - Subjective Subjective: CLINICALLY IMPROVED VSS NO CHEST PAINS/SOB Objective - Vital Signs/Intake and Output Vital Signs (last 24 hours): Temp Pulse Resp BP Pulse Ox 97.3 F L 86 20 143/91 H 97 01/31/18 12:51 01/31/18 12:51 01/31/18 12:51 01/31/18 12:51 01/31/18 12:51 Intake and Output: 01/31/18 01/31/18 06:59 18:59 Intake Total 2125 950 Output Total 1350 100 Balance 775 850 - Medications Medications: Current Medications Albuterol/Ipratropium (Duoneb 3 Mg/0.5 Mg (3 Ml) Ud) 3 ml INH RQ4 PRN PRN Reason: Shortness of Breath Enoxaparin Sodium (Lovenox) 40 mg SC DAILY [facility] PRN Reason: Protocol Last Admin: 01/31/18 08:56 Dose: 40 mg Piperacillin Sod/Tazobactam (Sod 4.5 gm/ Sodium Chloride) 100 mls @ 100 mls/hr IVPB Q6 [facility] PRN Reason: Protocol Stop: 02/04/18 23:59 Last Admin: 01/31/18 09:00 Dose: 100 mls/hr Vancomycin HCl 1 gm/ Sodium (Chloride) 250 mls @ 166.667 mls/hr IVPB Q12@0430, 1630 [facility] PRN Reason: Protocol Last Admin: 01/31/18 03:30 Dose: 166.667 mls/hr Methylprednisolone (Solu-Medrol) 40 mg IVP Q8H [facility] Last Admin: 01/31/18 05:02 Dose: 40 mg Pantoprazole Sodium (Protonix Inj) 40 mg IVP DAILY [facility] Last Admin: 01/31/18 08:57 Dose: 40 mg Phenytoin (Dilantin) 200 mg GT BID [facility] Last Admin: 01/31/18 08:56 Dose: 200 mg - Labs Labs: 01/31/18 05:23 01/31/18 05:23 PT 13.1 Seconds (9.8-13.1) 01/30/18 04:30 INR 1.2 01/30/18 04:30 APTT 31.2 Seconds (25.6-37.1) 01/30/18 04:30 - Constitutional Appears: No Acute Distress - Head Exam Head Exam: ATRAUMATIC, NORMAL INSPECTION, NORMOCEPHALIC - Eye Exam Eye Exam: EOMI, Normal appearance, PERRL Pupil Exam: NORMAL ACCOMODATION, PERRL - ENT Exam ENT Exam: Mucous Membranes Moist, Normal Exam - Neck Exam Neck Exam: Full ROM, Normal Inspection. absent: Lymphadenopathy - Respiratory Exam Respiratory Exam: Prolonged Expiratory Phase, Rales, Wheezes, NORMAL BREATHING PATTERN - Cardiovascular Exam Cardiovascular Exam: REGULAR RHYTHM, +S1, +S2. absent: Murmur - GI/Abdominal Exam GI & Abdominal Exam: Soft, Normal Bowel Sounds. absent: Tenderness - Rectal Exam Rectal Exam: NORMAL INSPECTION - Extremities Exam Extremities Exam: Full ROM, Normal Capillary Refill, Normal Inspection. absent : Joint Swelling, Pedal Edema - Back Exam Back Exam: NORMAL INSPECTION - Neurological Exam Neurological Exam: Alert, Awake, CN II-XII Intact, Normal Gait, Oriented x3 - Psychiatric Exam Psychiatric exam: Normal Affect, Normal Mood - Skin Skin Exam: Dry, Intact, Normal Color, Warm Assessment and Plan - Assessment and Plan (Free Text) Assessment: RESPIRATORY FAILURE IMPROVING Plan: CONTINUE CURRENT RX MAY BE TRANSFERRED OUT OF ICU
[2018-02-01] MEDS: Piperacillin/Tazobact 4.5 GM in Sodium Chloride 0.9% 100 ML IVPB SCH ×4 (03:15→21:04)
[2018-02-01] MEDS: MethylPREDNISolone 40 mg Vial IVP SCH ×3 (05:09→21:05)
[2018-02-01] MEDS: Phenytoin 100 mg/4 ml Oral Susp UD GT SCH ×2 (09:17→16:41)
[2018-02-01] MEDS: Enoxaparin 40 mg Syringe SC SCH (09:27)
--- NOTE | 2018-02-01 12:21 | CP.PCM.PN ---
Subjective - Date & Time of Evaluation Date of Evaluation: 02/01/18 Time of Evaluation: 12:23 - Subjective Subjective: SHORTNESS OF BREATH IMPROVED NO CHEST PAINS Objective - Vital Signs/Intake and Output Vital Signs (last 24 hours): Temp Pulse Resp BP Pulse Ox 97.6 F 96 H 20 150/86 98 02/01/18 08:00 02/01/18 11:00 02/01/18 11:00 02/01/18 06:00 02/01/18 11:00 Intake and Output: 02/01/18 02/01/18 06:59 18:59 Intake Total 225 650 Output Total 600 250 Balance -375 400 - Medications Medications: Current Medications Albuterol/Ipratropium (Duoneb 3 Mg/0.5 Mg (3 Ml) Ud) 3 ml INH RQ4 PRN PRN Reason: Shortness of Breath Last Admin: 02/01/18 08:54 Dose: 3 ml Enoxaparin Sodium (Lovenox) 40 mg SC DAILY [facility] PRN Reason: Protocol Last Admin: 02/01/18 09:27 Dose: 40 mg Piperacillin Sod/Tazobactam (Sod 4.5 gm/ Sodium Chloride) 100 mls @ 100 mls/hr IVPB Q6 [facility] PRN Reason: Protocol Stop: 02/04/18 23:59 Last Admin: 02/01/18 09:19 Dose: 100 mls/hr Vancomycin HCl 1 gm/ Sodium (Chloride) 250 mls @ 166.667 mls/hr IVPB Q12@0430, 1630 [facility] PRN Reason: Protocol Last Admin: 02/01/18 05:09 Dose: 166.667 mls/hr Methylprednisolone (Solu-Medrol) 40 mg IVP Q8H [facility] Last Admin: 02/01/18 05:09 Dose: 40 mg Pantoprazole Sodium (Protonix Inj) 40 mg IVP DAILY [facility] Last Admin: 02/01/18 09:17 Dose: 40 mg Phenytoin (Dilantin) 200 mg GT BID [facility] Last Admin: 02/01/18 09:17 Dose: 200 mg - Labs Labs: 01/31/18 05:23 01/31/18 05:23 PT 13.1 Seconds (9.8-13.1) 01/30/18 04:30 INR 1.2 01/30/18 04:30 APTT 31.2 Seconds (25.6-37.1) 01/30/18 04:30 - Constitutional Appears: No Acute Distress - Head Exam Head Exam: ATRAUMATIC, NORMAL INSPECTION, NORMOCEPHALIC - Eye Exam Eye Exam: EOMI, Normal appearance, PERRL Pupil Exam: NORMAL ACCOMODATION, PERRL - ENT Exam ENT Exam: Mucous Membranes Moist, Normal Exam - Neck Exam Neck Exam: Full ROM, Normal Inspection. absent: Lymphadenopathy - Respiratory Exam Respiratory Exam: Prolonged Expiratory Phase, Rales, NORMAL BREATHING PATTERN - Cardiovascular Exam Cardiovascular Exam: REGULAR RHYTHM, +S1, +S2. absent: Murmur - GI/Abdominal Exam GI & Abdominal Exam: Soft, Normal Bowel Sounds. absent: Tenderness - Rectal Exam Rectal Exam: NORMAL INSPECTION - Extremities Exam Extremities Exam: Full ROM, Normal Capillary Refill, Normal Inspection. absent : Joint Swelling, Pedal Edema - Back Exam Back Exam: NORMAL INSPECTION - Neurological Exam Neurological Exam: Alert, Awake, CN II-XII Intact, Normal Gait, Oriented x3 - Psychiatric Exam Psychiatric exam: Normal Affect, Normal Mood - Skin Skin Exam: Dry, Intact, Normal Color, Warm Assessment and Plan - Assessment and Plan (Free Text) Assessment: RESPIRATORY FAILURE IMPROVED LEGAL BLINDNESS PULMONARY INFILTERATES DM HTN Plan: TRANSFER TO REGULAR FLOOR PLACE ON O2 VIA NC
--- NOTE | 2018-02-01 12:36 | PQF ---
PROVIDER RESPONSE TEXT: COMMUNITY ACQUIRED PNEUMONIA--ORGANISM UNKNOWN REVIEWER QUERY TEXT: Pneumonia Specificity Pneumonia is documented in the Medical Record. Please specify the type of pneumonia and the causative organism (includes probable or suspected) if known after the work up is completed :Such as: Type: -- Aspiration pneumonia (please also specify the aspirate) --Please indicate if the aspiration is postprocedure -- Bacterial (please document suspected or probable organism) -- Bronchopneumonia (please document suspected or probable organism) -- Interstitial pneumonia -- Organizing pneumonia / BOOP -- Pneumonia with influenza, bertrand flu, or H1N1 flu -- RSV -- Tuberculosis, pulmonary -- Viral -- Other, please specify --Unable to determine 01/30 CXR: Impression: Mixed alveolar and interstitial infiltrates are noted at the mid to inferior ri ght lung zones with underlying lesion at the mid right lung not excluded. Small right pleural effusi on. Follow-up chest CT advised. 01/29 Critical Care progress note:Acute Hypoxemic Respiratory Failure 2 Multilobar Pneumonia, r/o Post -Obstructive PNA 2 Lung CA. The patient's Clinical Indicators include: xxxx Query created by: Kathleen Dawson on 01/31/2018 2:50 PM PROVIDER RESPONSE TEXT: HISTORY OF CONGESTIVE HEART FAILURE--NOT CURRENTLY PRESENT REVIEWER QUERY TEXT: Heart Failure Acuity and Type A history of Chronic Diastolic Congestive Heart Failure is documented in the Medical Record. Is thi s diagnosis history only and not currently treated? CXR:Impression New alveolar consolidative change right upper lobe likely pneumonia. 01/30 CXR: Impression: Mixed alveolar and interstitial infiltrates are noted at the mid to inferior ri ght lung zones with underlying lesion at the mid right lung not excluded. Small right pleural effusio n. Follow-up chest CT advised. The patient's Clinical Indicators include: xxxx Query created by: Kathleen Dawson on 01/31/2018 2:58 PM Electronically signed by: Alex Davenport MD 02/01/2018 12:33 PM
[2018-02-01] MEDS ORDERED: Alum-Mag Hydrox-Simethicone Susp (30 mL) PO PRN (20:20)
[2018-02-01] MEDS: Alum-Mag Hydrox-Simethicone Susp (30 mL) PO SCH (21:04)
[2018-02-02] MEDS: Alum-Mag Hydrox-Simethicone Susp (30 mL) PO SCH ×4 (03:46→22:51)
[2018-02-02] MEDS: Piperacillin/Tazobact 4.5 GM in Sodium Chloride 0.9% 100 ML IVPB SCH ×4 (03:46→22:50)
[2018-02-02] MEDS: MethylPREDNISolone 40 mg Vial IVP SCH ×3 (04:58→22:47)
[2018-02-02 07:54] LABS: BASO % 0.4 % (0.0-2.0); EOS # 0.1 K/uL (0.0-0.7); EOS % 0.9 % (0.0-4.0); MEAN CORPUSCULAR HEMOGLOBIN 30.9 pg (27.0-31.0); MEAN CORPUSCULAR HGB CONC 33.2 g/dL (33.0-37.0); MONO % 7.8 % (0.0-10.0); NEUT # 10.1 K/uL (1.8-7.0); NEUT % 82.9 % (50.0-75.0); NRBC % 0.1 % (0.0-0.0); PLATELET COUNT 290 K/uL (130-400); RBC 4.86 Mil/uL (4.40-5.90); RED CELL DISTRIBUTION WIDTH 13.4 % (11.5-14.5); WHITE BLOOD COUNT 12.2 K/uL (4.8-10.8)
[2018-02-02] MEDS: Phenytoin 100 mg/4 ml Oral Susp UD GT SCH ×2 (09:13→16:31)
[2018-02-02] MEDS: Enoxaparin 40 mg Syringe SC SCH (09:13)
--- NOTE | 2018-02-02 10:50 | CP.PCM.PN ---
Subjective - Date & Time of Evaluation Date of Evaluation: 02/02/18 Time of Evaluation: 10:50 - Subjective Subjective: C/O DIARRHEA AND ABDOMINAL DISCOMFORT BUT STOOL IS WELL FORMED NO SOB TODAY Objective - Vital Signs/Intake and Output Vital Signs (last 24 hours): Temp Pulse Resp BP Pulse Ox 98.6 F 89 19 145/77 95 02/02/18 07:38 02/02/18 07:38 02/02/18 07:38 02/02/18 07:38 02/02/18 07:38 - Medications Medications: Current Medications Al Hydrox/Mg Hydrox/Simethicone (Maalox Plus 30 Ml) 30 ml PO Q6 [facility] Last Admin: 02/02/18 03:46 Dose: 30 ml Albuterol/Ipratropium (Duoneb 3 Mg/0.5 Mg (3 Ml) Ud) 3 ml INH RQ4 PRN PRN Reason: Shortness of Breath Last Admin: 02/01/18 08:54 Dose: 3 ml Enoxaparin Sodium (Lovenox) 40 mg SC DAILY [facility] PRN Reason: Protocol Last Admin: 02/02/18 09:13 Dose: 40 mg Piperacillin Sod/Tazobactam (Sod 4.5 gm/ Sodium Chloride) 100 mls @ 100 mls/hr IVPB Q6 [facility] PRN Reason: Protocol Stop: 02/04/18 23:59 Last Admin: 02/02/18 03:46 Dose: 100 mls/hr Vancomycin HCl 1 gm/ Sodium (Chloride) 250 mls @ 166.667 mls/hr IVPB Q12@0430, 1630 [facility] PRN Reason: Protocol Last Admin: 02/02/18 04:59 Dose: 166.667 mls/hr Methylprednisolone (Solu-Medrol) 40 mg IVP Q8H [facility] Last Admin: 02/02/18 04:58 Dose: 40 mg Pantoprazole Sodium (Protonix Inj) 40 mg IVP DAILY [facility] Last Admin: 02/02/18 09:14 Dose: 40 mg Phenytoin (Dilantin) 200 mg GT BID [facility] Last Admin: 02/02/18 09:13 Dose: 200 mg - Labs Labs: 02/02/18 05:30 01/31/18 05:23 PT 13.1 Seconds (9.8-13.1) 01/30/18 04:30 INR 1.2 01/30/18 04:30 APTT 31.2 Seconds (25.6-37.1) 01/30/18 04:30 - Constitutional Appears: No Acute Distress - Head Exam Head Exam: ATRAUMATIC, NORMAL INSPECTION, NORMOCEPHALIC - Eye Exam Eye Exam: EOMI, Normal appearance, PERRL Pupil Exam: NORMAL ACCOMODATION, PERRL - ENT Exam ENT Exam: Mucous Membranes Moist, Normal Exam - Neck Exam Neck Exam: Full ROM, Normal Inspection. absent: Lymphadenopathy - Respiratory Exam Respiratory Exam: Prolonged Expiratory Phase, Wheezes, NORMAL BREATHING PATTERN - Cardiovascular Exam Cardiovascular Exam: REGULAR RHYTHM, +S1, +S2. absent: Murmur - GI/Abdominal Exam GI & Abdominal Exam: Soft, Normal Bowel Sounds. absent: Tenderness - Rectal Exam Rectal Exam: NORMAL INSPECTION - Extremities Exam Extremities Exam: Full ROM, Normal Capillary Refill, Normal Inspection. 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
[2018-02-02 12:31] LABS: BANDS 1 % (0-2); EOSINOPHIL 1 % (0-7); LYMPHOCYTE 9 % (20-50); METAMYELOCYTE 1 % (0-0); MONOCYTE 10 % (0-10); NEUTROPHIL 77 % (42-75); REACTIVE LYMPHOCYTES 1 % (0-0); TOTAL CELLS COUNTED 100
[2018-02-02 12:32] LABS: PLATELET ESTIMATE NORMAL (NORMAL)
[2018-02-03 00:35] VITALS: PULSE 84
[2018-02-03] MEDS: Alum-Mag Hydrox-Simethicone Susp (30 mL) PO SCH ×3 (04:46→16:09)
[2018-02-03] MEDS: MethylPREDNISolone 40 mg Vial IVP SCH ×2 (04:46→13:13)
[2018-02-03] MEDS: Piperacillin/Tazobact 4.5 GM in Sodium Chloride 0.9% 100 ML IVPB SCH ×2 (04:46→12:49)
[2018-02-03 08:02] VITALS: BP 159/81; RESP 20; TEMP 97.8; O2SAT 95
[2018-02-03] MEDS: Phenytoin 100 mg/4 ml Oral Susp UD GT SCH ×2 (08:27→16:08)
[2018-02-03] MEDS: Enoxaparin 40 mg Syringe SC SCH (08:27)
--- NOTE | 2018-02-03 08:58 | CP.PCM.DIS ---
Provider - Provider Date of Admission: 01/29/18 15:12 Attending physician: Alex Davenport MD Time Spent in preparation of Discharge (in minutes): 35 Diagnosis - Discharge Diagnosis (1) Pneumonia Status: Acute Priority: High (2) Respiratory failure Status: Acute (3) Abdominal discomfort Status: Acute (4) Blindness Status: Acute (5) COPD (chronic obstructive pulmonary disease) Status: Acute Priority: High (6) COPD exacerbation Status: Acute (7) DVT prophylaxis Status: Acute (8) Diarrhea Status: Acute Priority: High (9) Diarrhea in adult patient Status: Acute (10) Gastritis Status: Acute Hospital Course - Lab Results Lab Results: Micro Results 02/01/18 17:20 Naris MRSA Culture (Admit) - Final MRSA NOT DETECTED 01/29/18 15:00 Blood-Venous Blood Culture - Preliminary NO GROWTH AFTER 4 DAYS 01/29/18 10:47 Sputum Gram Stain - Final 01/29/18 10:47 Sputum Sputum Culture - Final Enterobacter Cloacae Ssp Cloac 01/29/18 21:00 Nose MRSA Culture (Admit) - Final MRSA NOT DETECTED Most Recent Lab Values WBC 12.2 K/uL (4.8-10.8) H 02/02/18 05:30 RBC 4.86 Mil/uL (4.40-5.90) 02/02/18 05:30 Hgb 15.0 g/dL (12.0-18.0) 02/02/18 05:30 Hct 45.2 % (35.0-51.0) 02/02/18 05:30 MCV 93.0 fl (80.0-94.0) D 02/02/18 05:30 MCH 30.9 pg (27.0-31.0) 02/02/18 05:30 MCHC 33.2 g/dL (33.0-37.0) 02/02/18 05:30 RDW 13.4 % (11.5-14.5) 02/02/18 05:30 Plt Count 290 K/uL (130-400) 02/02/18 05:30 MPV 8.0 fl (7.2-11.7) 02/02/18 05:30 Neut % (Auto) 82.9 % (50.0-75.0) H 02/02/18 05:30 Lymph % (Auto) 8.0 % (20.0-40.0) L 02/02/18 05:30 Garland % (Auto) 7.8 % (0.0-10.0) 02/02/18 05:30 Eos % (Auto) 0.9 % (0.0-4.0) 02/02/18 05:30 Baso % (Auto) 0.4 % (0.0-2.0) 02/02/18 05:30 Neut # (Auto) 10.1 K/uL (1.8-7.0) H 02/02/18 05:30 Lymph # (Auto) 1.0 K/uL (1.0-4.3) 02/02/18 05:30 Garland # (Auto) 1.0 K/uL (0.0-0.8) H 02/02/18 05:30 Eos # (Auto) 0.1 K/uL (0.0-0.7) 02/02/18 05:30 Baso # (Auto) 0.0 K/uL (0.0-0.2) 02/02/18 05:30 Neutrophils % (Manual) 77 % (42-75) H 02/02/18 05:30 Band Neutrophils % 1 % (0-2) 02/02/18 05:30 Lymphocytes % (Manual) 9 % (20-50) L 02/02/18 05:30 Reactive Lymphs % 1 % (0-0) H 02/02/18 05:30 Monocytes % (Manual) 10 % (0-10) 02/02/18 05:30 Eosinophils % (Manual) 1 % (0-7) 02/02/18 05:30 Metamyelocytes % 1 % (0-0) H 02/02/18 05:30 Platelet Estimate Normal (NORMAL) 02/02/18 05:30 RBC Morphology Normal (NORMAL) 02/02/18 05:30 PT 13.1 Seconds (9.8-13.1) 01/30/18 04:30 INR 1.2 01/30/18 04:30 APTT 31.2 Seconds (25.6-37.1) 01/30/18 04:30 pCO2 57 mm/Hg (35-45) H 01/30/18 10:24 pO2 84 mm/Hg (80-100) 01/30/18 10:24 HCO3 23.5 mmol/L (21-28) 01/30/18 10:24 ABG pH 7.27 (7.35-7.45) L 01/30/18 10:24 ABG Total CO2 27.9 mmol/L (22-28) 01/30/18 10:24 ABG O2 Saturation 96.7 % (95-98) 01/30/18 10:24 ABG Base Excess -1.7 mmol/L (-2.0-3.0) 01/30/18 10:24 William Test Yes 01/30/18 10:24 ABG Potassium 3.9 mmol/L (3.6-5.2) 01/30/18 10:24 A-a O2 Difference 101.0 mm/Hg 01/30/18 10:24 Sodium 135.0 mmol/L (132-148) 01/30/18 10:24 Chloride 103.0 mmol/L (98-107) 01/30/18 10:24 Glucose 231 mg/dL (75-110) H 01/30/18 10:24 Lactate 2.9 mmol/L (0.7-2.1) H 01/30/18 10:24 Vent Mode 4lnc 01/30/18 10:24 Mechanical Rate 12 01/29/18 14:56 FiO2 36.0 % 01/30/18 10:24 Tidal Volume 500 01/29/18 14:56 PEEP 5 01/29/18 14:56 Crit Value Called To Ryan morales 01/30/18 10:24 Crit Value Called By Carole schroeder 01/30/18 10:24 Crit Value Read Back Y 01/30/18 10:24 Blood Gas Notified Time 1032 01/30/18 10:24 Sodium 142 mmol/l (132-148) 01/31/18 05:23 Potassium 4.2 MMOL/L (3.6-5.0) 01/31/18 05:23 Chloride 104 mmol/L (98-107) 01/31/18 05:23 Carbon Dioxide 30 mmol/L (22-30) 01/31/18 05:23 Anion Gap 12 (10-20) 01/31/18 05:23 BUN 9 mg/dl (9-20) 01/31/18 05:23 Creatinine 0.7 mg/dl (0.8-1.5) L 01/31/18 05:23 Est GFR ( Amer) > 60 01/31/18 05:23 Est GFR (Non-Af Amer) > 60 01/31/18 05:23 POC Glucose (mg/dL) 111 mg/dL (65-110) H 01/29/18 14:51 Random Glucose 112 mg/dL (75-110) H 01/31/18 05:23 Calcium 9.0 mg/dL (8.4-10.2) 01/31/18 05:23 Total Bilirubin 0.5 mg/dl (0.2-1.3) 01/30/18 04:30 AST 35 U/L (17-59) 01/30/18 04:30 ALT 34 U/L (21-72) 01/30/18 04:30 Alkaline Phosphatase 91 U/L (38-126) 01/30/18 04:30 Troponin I 0.0470 ng/mL (0.00-0.120) 01/30/18 07:25 Total Protein 6.5 G/DL (6.3-8.2) 01/30/18 04:30 Albumin 3.4 g/dL (3.5-5.0) L 01/30/18 04:30 Globulin 3.1 gm/dL (2.2-3.9) 01/30/18 04:30 Albumin/Globulin Ratio 1.1 (1.0-2.1) 01/30/18 04:30 Arterial Blood Potassium 3.9 mmol/L (3.6-5.2) 01/30/18 10:24 Phenytoin 11.8 ug/ML (10-20) 02/02/18 05:30 - Hospital Course Hospital Course: SOB IMPROVED DIARRHEA RESOLVED Discharge Exam - Head Exam Head Exam: ATRAUMATIC, NORMAL INSPECTION, NORMOCEPHALIC - Eye Exam Eye Exam: EOMI, Normal appearance Pupil Exam: NORMAL ACCOMODATION Additional comments: BLIND - Respiratory Exam Respiratory Exam: Decreased Breath Sounds, Prolonged Expiratory Phase - GI/Abdominal Exam GI & Abdominal Exam: Normal Bowel Sounds - Rectal Exam Rectal Exam: NORMAL INSPECTION - Neurological Exam Neurological exam: Alert, CN II-XII Intact, Normal Gait, Oriented x3, Reflexes Normal - Psychiatric Exam Psychiatric exam: Normal Affect, Normal Mood - Skin Skin Exam: Dry, Intact, Normal Color, Warm Discharge Plan - Follow Up Plan Condition: GUARDED Disposition: HOME/ ROUTINE Patient education suggested?: Yes Additional Instructions: FOLLOW UP WITH DR VITAL
== END 2018-02-03 16:40 | disposition home or self-care (01) | DRG 882 ==
LOC: H.ER 14:37 → H.ERHOLD 15:12 → H.ICU/CCU 17:38 → H.MEDSURG1 02-01 15:33
PROVIDERS: ADMIT Internal Medicine Pulmonary Disease; ATTEND Internal Medicine Pulmonary Disease
PROC: 5A1935Z Respiratory Ventilation, Less than 24 Consecutive Hours (ICD-10-PCS; principal; 2018-01-29)
PROC: 0BH17EZ Insertion of Endotracheal Airway into Trachea, Via Natural or Artificial Opening (ICD-10-PCS; 2018-01-29)
DX: J96.01 Acute respiratory failure with hypoxia (principal); J18.9 Pneumonia, unspecified organism; I50.32 Chronic diastolic (congestive) heart failure; J44.1 Chronic obstructive pulmonary disease with (acute) exacerbation; I11.0 Hypertensive heart disease with heart failure; J44.0 Chronic obstructive pulmonary disease with (acute) lower respiratory infection; J96.02 Acute respiratory failure with hypercapnia; E11.65 Type 2 diabetes mellitus with hyperglycemia; E78.00 Pure hypercholesterolemia, unspecified; H54.8 Legal blindness, as defined in USA; K29.70 Gastritis, unspecified, without bleeding; Z79.82 Long term (current) use of aspirin; Z79.899 Other long term (current) drug therapy